=== PATIENT | female | born 1975 | race Caucasian/White ===

== ENCOUNTER 2020-10-13 12:25 | Emergency (ER) | payer MEDICAID, OTHER ==
[~2020-10-13] VITALS: Ht 154.9 cm; Wt 172.4 kg
[2020-10-13] MEDS ORDERED: SODIUM CHLORIDE 0.9% 500 ML IV ONE (12:45)
[2020-10-13 15:48] LABS: Hematocrit 38.5 % (36.0-46.0); Hemoglobin 12.9 g/dL (12.2-16.2); Mean Corpuscular Hgb Conc. 33.6 g/dL (32.0-36.0); Mean Corpuscular Volume 86.1 fL (80.0-100.0); Platelet Count (auto) 161 10^3/uL (140-450); Red Blood Cells 4.47 10^6/uL (4.0-5.20); Red Cell Distribution Width 14.1 % (11.8-14.3); White Blood Cell 5.1 10^3/uL (4.4-10.8)
[2020-10-13 15:50] LABS: Basophils % (manual) 0 (0.0-2.0); Blast Cells 0; Eosinophils % (manual) 0 (0-7); Metamyelocytes % 0; Myelocytes % 0; Promyelocytes % 0; Reactive Lymphocytes 0
[2020-10-13 16:29] LABS: Albumin 3.5 g/dL (3.4-5.0); BUN/Creatinine Ratio 11.8; Bilirubin, Total 0.3 mg/dL (0.2-1.0); Calcium 8.4 mg/dL (8.5-10.1); Potassium 5.2 mmol/L (3.5-5.1); Total Protein 7.1 g/dL (6.4-8.2)
[2020-10-13 17:15] LABS: Band Neutrophils % (manual) 3; Lymphocytes % (manual) 20 (10.0-50.0); Monocytes % (manual) 15 (0-12)
[2020-10-13 19:41] VITALS: BP 122/65
[2020-10-13 20:45] LABS: Urine Bacteria FEW /hpf (None Seen); Urine Blood Negative /uL (Negative); Urine Mucus FEW (None Seen); Urine Specific Gravity 1.009 (1.001-1.035); Urine WBC 31 /hpf (0 - 5)
== END 2020-10-13 21:00 | disposition home or self-care (01) ==
LOC: ER 12:25
DX: N39.0 Urinary tract infection, site not specified (principal); J45.909 Unspecified asthma, uncomplicated; E11.9 Type 2 diabetes mellitus without complications; E78.5 Hyperlipidemia, unspecified; I10 Essential (primary) hypertension; Z98.51 Tubal ligation status
CPT/HCPCS: 36415; 74176; 80053; 81001; 85007; 85027; 96360; 96361; 99284; J7040

== ENCOUNTER 2022-12-12 09:55 | Inpatient (IN) | payer MEDICAID ==
[~2022-12-12] VITALS: Ht 154.9 cm; Wt 181.0 kg
[2022-12-12 10:47] LABS: Eosinophils # (auto) 0.1 10 ^3/uL (0-0.8)
[2022-12-12 10:49] LABS: Basophils # (auto) 0.1 10 ^3/uL (0-0.2); Basophils % (auto) 0.3 % (0.0-2.0); Eosinophils % (auto) 0.5 % (0.0-7.0); Hematocrit 29.1 % (36.0-46.0); Lymphocytes # (auto) 1.4 10 ^3/uL (0.4-5.4); Lymphocytes % (auto) 8.6 % (10.0-50.0); Mean Corpuscular Hemoglobin 26.9 pg (28.0-32.0); Mean Corpuscular Hgb Conc. 31.1 g/dL (32.0-36.0); Mean Corpuscular Volume 86.6 fL (80.0-100.0); Monocytes # (auto) 1.6 10 ^3/uL (0-1.3); Monocytes % (auto) 9.4 % (0.0-12.0); Neutrophils # (auto) 13.6 10 ^3/uL (1.6-8.6); Neutrophils % (auto) 81.2 % (37.0-80.0); Nucleated Red Blood Cells % 0.1 %; Red Blood Cells 3.36 10^6/uL (4.0-5.20); Red Cell Distribution Width 14.5 % (11.8-14.3); White Blood Cell 16.8 10^3/uL (4.4-10.8)
[2022-12-12 10:52] LABS: Albumin 2.8 g/dL (3.4-5.0); Calcium 8.6 mg/dL (8.5-10.1)
[2022-12-12 10:56] LABS: Bilirubin, Total 0.3 mg/dL (0.2-1.0); Total Protein 6.4 g/dL (6.4-8.2)
[2022-12-12] MEDS ORDERED: ACETAMINOPHEN 325 MG TAB PO PRN (11:00)
[2022-12-12] MEDS ORDERED: AZITHROMYCIN 500MG/ 250ML 250 ML IV ONE (11:00)
[2022-12-12] MEDS ORDERED: SODIUM CHLORIDE 0.9% 1,000 ML IV ONE ×2 (11:00)
[2022-12-12] MEDS ORDERED: cefTRIAXone 1GM/50ML D5W 50 ML IV ONE (11:00)
[2022-12-12] MEDS ORDERED: ENOXAPARIN SOD 150 MG/1 ML SYRINGE SC ONE (11:30)
[2022-12-12 11:34] LABS: Urine Bacteria FEW /hpf (None Seen); Urine Blood 2+ /uL (Negative); Urine Specific Gravity 1.015 (1.001-1.035); Urine WBC 243 /hpf (0 - 5)
[2022-12-12] MEDS ORDERED: FUROSEMIDE 20 MG/2 ML VIAL IV ONE (13:00)
[2022-12-12] MEDS ORDERED: PANTOPRAZOLE 40 MG/10 ML VIAL INJ IV ONE (13:15)
[2022-12-12] MEDS ORDERED: VANCOMYCIN PER PHARMACY 0 MG IV SCH (13:15)
[2022-12-12] MEDS: SODIUM CHLORIDE 0.9% 1,000 ML IV SCH (13:15)
[2022-12-12] MEDS ORDERED: ALBUTEROL SULF 2.5 MG/0.5ML(0.5%) NEB SOLN NEB PRN (13:15)
[2022-12-12] MEDS ORDERED: MORPHINE SULFATE INJ 2 MG/ml SYRG IV PRN (13:15)
[2022-12-12] MEDS ORDERED: NITROGLYCERIN 0.4 MG SL TAB SL PRN (13:15)
[2022-12-12 13:46] LABS: Cholesterol 92 mg/dL (< 200); Triglycerides 103 mg/dL (< 150)
[2022-12-12 13:48] LABS: HDL Cholesterol 37 mg/dL (40-59); LDL Cholesterol 46 mg/dL (< 100)
[2022-12-12] MEDS ORDERED: LURA80TA PO (13:55)
[2022-12-12] MEDS ORDERED: ALBU108A5 INH (13:55)
[2022-12-12] MEDS ORDERED: ROSU1TAB15 PO (13:55)
[2022-12-12] MEDS ORDERED: ROPI2TAB6 (13:55)
[2022-12-12] MEDS ORDERED: HYDR4TAB90 PO (13:55)
[2022-12-12] MEDS ORDERED: BUSP30TA21 PO (13:55)
[2022-12-12] MEDS ORDERED: PREG200C59 PO (13:55)
[2022-12-12] MEDS ORDERED: METF-372 PO (13:55)
[2022-12-12] MEDS ORDERED: BACL20TA (13:55)
[2022-12-12] MEDS ORDERED: MELO1TAB56 PO (13:55)
[2022-12-12] MEDS ORDERED: MONT-8 PO (13:55)
[2022-12-12] MEDS ORDERED: ASPI-325 PO (13:55)
[2022-12-12] MEDS ORDERED: GLIP10TA16 (13:55)
[2022-12-12] MEDS ORDERED: METH-867 PO (13:55)
[2022-12-12] MEDS ORDERED: MORP30TA5 PO (13:55)
[2022-12-12] MEDS ORDERED: IPRIH INH (13:55)
[2022-12-12] MEDS ORDERED: CETI-120 PO (13:55)
[2022-12-12] MEDS ORDERED: OXYB5TAB61 PO (13:55)
[2022-12-12] MEDS ORDERED: UBRO100T2 PO (13:55)
[2022-12-12] MEDS ORDERED: ROPI2TAB47 PO (13:55)
[2022-12-12] MEDS ORDERED: MEDR10TA9 PO (13:55)
[2022-12-12] MEDS ORDERED: HYDR4TAB2 PO (13:55)
[2022-12-12] MEDS ORDERED: VANCOMYCIN 1GM/250ML 250 ML IV ONE (14:00)
[2022-12-12] MEDS: PATIENTS OWN MEDICATION (Pregabalin 1 CAP) PO SCH ×2 (14:00→22:00)
[2022-12-12] MEDS: HYDROmorphone HCL 2 MG TAB PO PRN ×3 (15:28→20:11)
[2022-12-12] MEDS ORDERED: ALBUTEROL SULF 2.5 MG/0.5ML(0.5%) NEB SOLN NEB SCH (18:00)
[2022-12-12] MEDS: VANCOMYCIN 1GM/250ML 250 ML IV SCH (20:11)
[2022-12-12] MEDS: MORPHINE SULF 30 mg ER tab PO PRN (21:37)
[2022-12-12] MEDS: OXYBUTYNIN CHL 5 MG TAB PO SCH (22:00)
[2022-12-12] MEDS: ENOXAPARIN SOD 40 MG/0.4 ML SYRINGE SC SCH (22:24)
[2022-12-12] MEDS: busPIRone HCL 10 MG TAB PO SCH (22:24)
[2022-12-12] MEDS: CEFEPIME 2 GM in SODIUM CHL 0.9% 50 ML IV SCH (22:24)
[2022-12-13] VITALS (7 sets, daily range): BP systolic 116–158; BP diastolic 49–83
[2022-12-13] MEDS: HYDROmorphone HCL 2 MG TAB PO PRN ×3 (03:10→15:19)
[2022-12-13] MEDS: VANCOMYCIN 1GM/250ML 250 ML IV SCH ×4 (03:10→20:35)
[2022-12-13] MEDS: PATIENTS OWN MEDICATION (Pregabalin 1 CAP) PO SCH (05:25)
[2022-12-13 07:50] LABS: Basophils # (auto) 0.1 10 ^3/uL (0-0.2); Basophils % (auto) 0.4 % (0.0-2.0); Eosinophils # (auto) 0.1 10 ^3/uL (0-0.8); Eosinophils % (auto) 0.6 % (0.0-7.0); Hematocrit 31.8 % (36.0-46.0); Hemoglobin 9.6 g/dL (12.2-16.2); Lymphocytes # (auto) 2.4 10 ^3/uL (0.4-5.4); Lymphocytes % (auto) 11.7 % (10.0-50.0); Mean Corpuscular Hemoglobin 26.8 pg (28.0-32.0); Mean Corpuscular Hgb Conc. 30.4 g/dL (32.0-36.0); Mean Corpuscular Volume 88.4 fL (80.0-100.0); Monocytes # (auto) 3.2 10 ^3/uL (0-1.3); Monocytes % (auto) 15.4 % (0.0-12.0); Neutrophils # (auto) 14.9 10 ^3/uL (1.6-8.6); Neutrophils % (auto) 71.9 % (37.0-80.0); Nucleated Red Blood Cells % 0.2 %; Red Blood Cells 3.59 10^6/uL (4.0-5.20); Red Cell Distribution Width 14.3 % (11.8-14.3); White Blood Cell 20.7 10^3/uL (4.4-10.8)
[2022-12-13] MEDS: ACETAMINOPHEN 325 MG TAB PO PRN ×2 (09:21→22:01)
[2022-12-13] MEDS: MONTELUKAST SODIUM 10 MG TAB PO SCH (09:23)
[2022-12-13] MEDS: ENOXAPARIN SOD 40 MG/0.4 ML SYRINGE SC SCH ×2 (09:23→22:02)
[2022-12-13] MEDS: busPIRone HCL 10 MG TAB PO SCH ×2 (09:23→22:01)
[2022-12-13] MEDS: OXYBUTYNIN CHL 5 MG TAB PO SCH ×2 (09:23→22:01)
[2022-12-13] MEDS: PANTOPRAZOLE 40 MG/10 ML VIAL INJ IV SCH (09:24)
[2022-12-13] MEDS: ASPirin-EC 81 mg tab PO SCH (09:24)
[2022-12-13 09:28] LABS: Albumin 2.6 g/dL (3.4-5.0); Calcium 8.8 mg/dL (8.5-10.1); Potassium 4.8 mmol/L (3.5-5.1)
[2022-12-13 09:31] LABS: BUN/Creatinine Ratio 12.6; Bilirubin, Total 0.4 mg/dL (0.2-1.0); Total Protein 7.5 g/dL (6.4-8.2)
[2022-12-13] MEDS ORDERED: ENOXAPARIN SOD 60 MG/0.6 ML SYRINGE SC SCH (10:00)
[2022-12-13] MEDS ORDERED: cefTRIAXone 1GM/50ML D5W 50 ML IV SCH (10:00)
[2022-12-13] MEDS: medroxyPROGESTERone ACETATE 5 MG TAB PO SCH (10:49)
[2022-12-13] MEDS: CEFEPIME 2 GM in SODIUM CHL 0.9% 50 ML IV SCH ×2 (11:20→22:02)
[2022-12-13] MEDS: Pregabalin 200 MG CAPSULE PO SCH ×2 (14:16→22:00)
[2022-12-13] MEDS: SODIUM CHLORIDE 0.9% 1,000 ML IV SCH (15:25)
[2022-12-13] MEDS: MORPHINE SULF 30 mg ER tab PO PRN ×2 (20:36→23:48)
[2022-12-14] MEDS: VANCOMYCIN 1GM/250ML 250 ML IV SCH ×5 (02:02→20:53)
[2022-12-14 04:46] VITALS: BP 129/72
[2022-12-14] MEDS: Pregabalin 200 MG CAPSULE PO SCH ×3 (05:16→21:30)
[2022-12-14] MEDS ORDERED: ALBUTEROL SULF 2.5 MG/0.5ML(0.5%) NEB SOLN NEB SCH (06:00)
[2022-12-14] MEDS ORDERED: IPRATROPIUM BROM 0.5 MG/2.5ML INH SOL NEB SCH ×2 (06:00)
[2022-12-14] MEDS ORDERED: ALBUTEROL SULF 2.5 MG/0.5ML(0.5%) NEB SOLN NEB PRN (08:45)
[2022-12-14] MEDS ORDERED: IPRATROPIUM BROM 0.5 MG/2.5ML INH SOL NEB PRN (08:45)
[2022-12-14] MEDS: PANTOPRAZOLE 40 MG/10 ML VIAL INJ IV SCH (08:58)
[2022-12-14] MEDS: medroxyPROGESTERone ACETATE 5 MG TAB PO SCH (08:59)
[2022-12-14] MEDS: busPIRone HCL 10 MG TAB PO SCH ×2 (08:59→21:30)
[2022-12-14 09:00] VITALS: BP 115/74
[2022-12-14] MEDS: OXYBUTYNIN CHL 5 MG TAB PO SCH ×2 (09:01→21:30)
[2022-12-14] MEDS: MONTELUKAST SODIUM 10 MG TAB PO SCH (09:01)
[2022-12-14] MEDS: SODIUM CHLORIDE 0.9% 1,000 ML IV SCH ×2 (09:02→18:30)
[2022-12-14] MEDS: ENOXAPARIN SOD 40 MG/0.4 ML SYRINGE SC SCH ×2 (09:02→21:31)
[2022-12-14 09:05] LABS: Basophils # (auto) 0.1 10 ^3/uL (0-0.2); Basophils % (auto) 0.5 % (0.0-2.0); Eosinophils # (auto) 0.4 10 ^3/uL (0-0.8); Eosinophils % (auto) 1.9 % (0.0-7.0); Hematocrit 33.5 % (36.0-46.0); Hemoglobin 10.8 g/dL (12.2-16.2); Lymphocytes # (auto) 2.2 10 ^3/uL (0.4-5.4); Lymphocytes % (auto) 11.4 % (10.0-50.0); Mean Corpuscular Hemoglobin 27.1 pg (28.0-32.0); Mean Corpuscular Hgb Conc. 32.1 g/dL (32.0-36.0); Mean Corpuscular Volume 84.6 fL (80.0-100.0); Monocytes # (auto) 2.1 10 ^3/uL (0-1.3); Monocytes % (auto) 11.2 % (0.0-12.0); Neutrophils # (auto) 14.2 10 ^3/uL (1.6-8.6); Nucleated Red Blood Cells % 0.4 %; Red Blood Cells 3.96 10^6/uL (4.0-5.20); Red Cell Distribution Width 14.2 % (11.8-14.3); White Blood Cell 18.9 10^3/uL (4.4-10.8)
[2022-12-14] MEDS: ASPirin-EC 81 mg tab PO SCH (09:08)
[2022-12-14 09:29] LABS: Albumin 2.4 g/dL (3.4-5.0); BUN/Creatinine Ratio 13.2; Calcium 8.9 mg/dL (8.5-10.1); Potassium 4.5 mmol/L (3.5-5.1)
[2022-12-14 09:30] LABS: Bilirubin, Total 0.5 mg/dL (0.2-1.0); Total Protein 7.3 g/dL (6.4-8.2)
[2022-12-14] MEDS: CEFEPIME 2 GM in SODIUM CHL 0.9% 50 ML IV SCH ×2 (10:38→21:29)
[2022-12-14] MEDS: MORPHINE SULF 30 mg ER tab PO PRN (10:40)
[2022-12-14] MEDS ORDERED: HYDROmorphone HCL 2 MG TAB PO PRN (11:30)
[2022-12-14 13:00] VITALS: BP 115/49
[2022-12-14] MEDS: LATUDA 80 MG PO SCH (13:36)
[2022-12-14] MEDS ORDERED: IOHEXOL 350 MG/ML 100ML IJ ONE (16:21)
[2022-12-14 17:00] VITALS: BP 124/72
[2022-12-14] MEDS ORDERED: hydrOXYzine HCL 10 MG TAB PO PRN (17:30)
[2022-12-14 20:00] VITALS: BP 126/74
[2022-12-14] MEDS: NYSTATIN TOPICAL POWDER 15GM TOP SCH (21:31)
[2022-12-14 23:28] VITALS: BP 129/66
[2022-12-15 04:52] VITALS: BP 161/69
[2022-12-15 06:13] LABS: Basophils # (auto) 0.1 10 ^3/uL (0-0.2); Eosinophils # (auto) 0.2 10 ^3/uL (0-0.8); Monocytes # (auto) 1.7 10 ^3/uL (0-1.3)
[2022-12-15 06:15] LABS: Basophils % (auto) 0.4 % (0.0-2.0); Eosinophils % (auto) 1.1 % (0.0-7.0); Hematocrit 24.6 % (36.0-46.0); Lymphocytes # (auto) 1.7 10 ^3/uL (0.4-5.4); Lymphocytes % (auto) 11.8 % (10.0-50.0); Mean Corpuscular Hemoglobin 27.2 pg (28.0-32.0); Mean Corpuscular Hgb Conc. 32.4 g/dL (32.0-36.0); Monocytes % (auto) 11.6 % (0.0-12.0); Neutrophils # (auto) 11.1 10 ^3/uL (1.6-8.6); Neutrophils % (auto) 75.1 % (37.0-80.0); Nucleated Red Blood Cells % 0.5 %; Red Blood Cells 2.93 10^6/uL (4.0-5.20); White Blood Cell 14.8 10^3/uL (4.4-10.8)
[2022-12-15 06:26] LABS: Potassium 3.8 mmol/L (3.5-5.1)
[2022-12-15 06:34] LABS: BUN/Creatinine Ratio 15.9
[2022-12-15] MEDS: VANCOMYCIN 1GM/250ML 250 ML IV SCH ×2 (06:50→08:54)
[2022-12-15] MEDS: Pregabalin 200 MG CAPSULE PO SCH ×2 (06:50→14:38)
[2022-12-15] MEDS: SODIUM CHLORIDE 0.9% 1,000 ML IV SCH (08:51)
[2022-12-15] MEDS: OXYBUTYNIN CHL 5 MG TAB PO SCH (08:54)
[2022-12-15] MEDS: PANTOPRAZOLE 40 MG/10 ML VIAL INJ IV SCH (08:54)
[2022-12-15] MEDS: MONTELUKAST SODIUM 10 MG TAB PO SCH (08:54)
[2022-12-15] MEDS: busPIRone HCL 10 MG TAB PO SCH (08:54)
[2022-12-15] MEDS: ENOXAPARIN SOD 40 MG/0.4 ML SYRINGE SC SCH (08:55)
[2022-12-15 09:00] VITALS: BP 147/74
[2022-12-15] MEDS: NYSTATIN TOPICAL POWDER 15GM TOP SCH (09:03)
[2022-12-15] MEDS: medroxyPROGESTERone ACETATE 5 MG TAB PO SCH (09:03)
[2022-12-15] MEDS: ASPirin-EC 81 mg tab PO SCH (09:03)
[2022-12-15] MEDS ORDERED: NYS15PW TOP (10:01)
[2022-12-15] MEDS: CEFEPIME 2 GM in SODIUM CHL 0.9% 50 ML IV SCH (10:04)
[2022-12-15] MEDS ORDERED: CEFTRIAXONE SODIUM 2 GM in D5W 5% 100 ML IV ONE (12:00)
[2022-12-15] MEDS: LATUDA 80 MG PO SCH (13:08)
[2022-12-16] MEDS ORDERED: CEFTRIAXONE SODIUM 2 GM in D5W 5% 100 ML IV SCH (10:00)
== END 2022-12-15 15:39 | disposition home or self-care (01) | DRG 720 ==
LOC: EDBD 09:55 → ER 10:03 → TELE 13:17 → TELE-CENTR 23:54
PROVIDERS: ADMIT Nurse Practitioner Family; ATTEND Internal Medicine Pulmonary Disease
PROC: 05HY33Z Insertion of Infusion Device into Upper Vein, Percutaneous Approach (ICD-10-PCS; principal; 2022-12-15)
PROC: B54NZZA Ultrasonography of Left Upper Extremity Veins, Guidance (ICD-10-PCS; 2022-12-15)
DX: A41.9 Sepsis, unspecified organism (principal); J96.21 Acute and chronic respiratory failure with hypoxia; D84.9 Immunodeficiency, unspecified; I50.810 Right heart failure, unspecified; E66.2 Morbid (severe) obesity with alveolar hypoventilation; I11.0 Hypertensive heart disease with heart failure; E11.65 Type 2 diabetes mellitus with hyperglycemia; B37.31 Acute candidiasis of vulva and vagina; S82.892A Other fracture of left lower leg, initial encounter for closed fracture; G89.29 Other chronic pain; M79.3 Panniculitis, unspecified; E78.5 Hyperlipidemia, unspecified; J44.9 Chronic obstructive pulmonary disease, unspecified; N39.0 Urinary tract infection, site not specified; W06.XXXA Fall from bed, initial encounter; Z20.822 Contact with and (suspected) exposure to COVID-19; Y93.89 Activity, other specified; Y92.003 Bedroom of unspecified non-institutional (private) residence as the place of occurrence of the external cause; Z82.49 Family history of ischemic heart disease and other diseases of the circulatory system; Z86.16 Personal history of COVID-19; Z88.6 Allergy status to analgesic agent; Z99.81 Dependence on supplemental oxygen; Z88.1 Allergy status to other antibiotic agents
CPT/HCPCS: 36415; 51702; 71045; 71260; 73600; 74177; 80048; 80053; 80061; 80202; 81001; 83036; 83605; 84443; 84484; 85025; 85379; 87040; 87086; 87426; 87804; 93005; 93306; 94640; 96365; 96366; 96368; 96372; C9113; G0378; J0696; J7060

== ENCOUNTER 2022-12-18 05:37 | Emergency (ER) | payer MEDICAID ==
[~2022-12-18] VITALS: Ht 167.6 cm; Wt 200.0 kg
[~2022-12-18 05:37] MED LIST: ALBU108A5 INH; ASPI-325 PO; BACL20TA; BUSP30TA21 PO; CETI-120 PO; GLIP10TA16; HYDR4TAB2 PO; HYDR4TAB90 PO; IPRIH INH; LURA80TA PO; MEDR10TA9 PO; MELO1TAB56 PO; METF-372 PO; METH-867 PO; MONT-8 PO; MORP30TA5 PO; NYS15PW TOP; OXYB5TAB61 PO; PREG200C59 PO; ROPI2TAB47 PO; ROPI2TAB6; ROSU1TAB15 PO; UBRO100T2 PO
[2022-12-18] MEDS ORDERED: MIDAZOLAM DRIP 50 mg/50mL 50 ML IV ONE (05:44)
[2022-12-18] MEDS ORDERED: ETOMIDATE (2MG/ML) 20ML VIAL IV ONE ×2 (05:44→06:15)
[2022-12-18] MEDS ORDERED: MIDAZOLAM HCL 10 ML IV ONE (05:45)
[2022-12-18] MEDS ORDERED: ROCURONIUM 10MG/ML 10ML VIAL IV ONE ×5 (05:45→09:30)
[2022-12-18] MEDS ORDERED: IPRATROPIUM BROM 0.5 MG/2.5ML INH SOL NEB ONE (06:00)
[2022-12-18] MEDS ORDERED: methylPREDNISolone SOD SUCC 125 MG/2 ML VL IV ONE (06:00)
[2022-12-18] MEDS ORDERED: ALBUTEROL SULF 2.5 MG/0.5ML(0.5%) NEB SOLN NEB ONE (06:00)
[2022-12-18] MEDS ORDERED: TERBUTALINE SULFATE 1 MG/ML 1ML VIAL SC ONE (06:00)
[2022-12-18] MEDS: MIDAZOLAM DRIP 50 mg/50mL 50 ML IV SCH ×2 (06:04→12:25)
[2022-12-18 06:13] LABS: Basophils # (auto) 0.1 10 ^3/uL (0-0.2); Eosinophils # (auto) 0.1 10 ^3/uL (0-0.8); Hemoglobin 9.3 g/dL (12.2-16.2)
[2022-12-18] MEDS ORDERED: MIDAZOLAM DRIP 50 mg/50mL 50 ML IV SCH (06:15)
[2022-12-18] MEDS ORDERED: MIDAZOLAM HCL 5 MG/ML-1ML VIAL IV ONE (06:15)
[2022-12-18 06:16] LABS: Basophils % (auto) 0.5 % (0.0-2.0); Eosinophils % (auto) 0.5 % (0.0-7.0); Hematocrit 30.4 % (36.0-46.0); Lymphocytes # (auto) 2.2 10 ^3/uL (0.4-5.4); Lymphocytes % (auto) 13.4 % (10.0-50.0); Mean Corpuscular Hemoglobin 26.8 pg (28.0-32.0); Mean Corpuscular Hgb Conc. 30.5 g/dL (32.0-36.0); Mean Corpuscular Volume 87.9 fL (80.0-100.0); Monocytes # (auto) 1.5 10 ^3/uL (0-1.3); Neutrophils # (auto) 12.7 10 ^3/uL (1.6-8.6); Neutrophils % (auto) 76.6 % (37.0-80.0); Nucleated Red Blood Cells % 0.6 %; Red Blood Cells 3.46 10^6/uL (4.0-5.20); Red Cell Distribution Width 14.8 % (11.8-14.3); White Blood Cell 16.5 10^3/uL (4.4-10.8)
[2022-12-18] MEDS ORDERED: MAGNESIUM SULFATE 1GM/100ML 200 ML IV ONE (06:27)
[2022-12-18 06:35] LABS: Albumin 2.6 g/dL (3.4-5.0); BUN/Creatinine Ratio 18.8; Calcium 8.7 mg/dL (8.5-10.1)
[2022-12-18 06:38] LABS: Bilirubin, Total 0.3 mg/dL (0.2-1.0); Lactic Acid w/Reflex 2.7 mmol/L (0.4-2.0); Total Protein 7.1 g/dL (6.4-8.2)
[2022-12-18 06:41] LABS: Potassium 5.8 mmol/L (3.5-5.1)
[2022-12-18] MEDS ORDERED: SODIUM CHLORIDE 0.9% 500 ML IV ONE (06:45)
[2022-12-18] MEDS: MAGNESIUM SULFATE 1GM/100ML 100 ML IV SCH ×2 (06:52→07:10)
[2022-12-18 07:20] LABS: Salicylate < 1.7 mg/dL (2.8-20.0)
[2022-12-18] MEDS ORDERED: PIPERACILLIN-TAZOB 3.375GM 100 ML IV ONE (07:30)
[2022-12-18] MEDS ORDERED: FUROSEMIDE 20 MG/2 ML VIAL IV ONE (07:30)
[2022-12-18] MEDS ORDERED: VANCOMYCIN 1GM/250ML 250 ML IV ONE (07:30)
[2022-12-18] MEDS ORDERED: InsuLIN REG 1unit/0.01ml Soln (100units/ml) IV ONE (07:30)
[2022-12-18 07:34] LABS: Acetaminophen < 2.0 ug/mL (10-30)
[2022-12-18 07:35] LABS: Urine Bacteria NONE SEEN /hpf (None Seen); Urine Blood TRACE /uL (Negative); Urine Hyaline Cast FEW /lpf (0 - 2); Urine Specific Gravity 1.023 (1.001-1.035); Urine WBC 4 /hpf (0 - 5)
[2022-12-18 07:47] VITALS: BP 120/50
[2022-12-18] MEDS ORDERED: CALCIUM GLUC 1,000mg/50ml-NS 50 ML IV ONE (09:15)
[2022-12-18 09:30] VITALS: BP 120/52
[2022-12-18] MEDS ORDERED: PROPOFOL 100 ML IV SCH (09:30)
[2022-12-18] MEDS ORDERED: NOREPINEPHRINE 8 MG/250ML KIT 250 ML IV SCH (09:30)
[2022-12-18 12:25] VITALS: BP 122/55
== END 2022-12-18 12:48 | disposition short-term general hospital (02) ==
LOC: EDSEX 05:37 → ER 05:37 → EDBD 05:37 → ER 12:48
DX: A41.9 Sepsis, unspecified organism (principal); M72.6 Necrotizing fasciitis; I10 Essential (primary) hypertension; E11.9 Type 2 diabetes mellitus without complications; E78.5 Hyperlipidemia, unspecified; J45.909 Unspecified asthma, uncomplicated; Z20.822 Contact with and (suspected) exposure to COVID-19
CPT/HCPCS: 31500; 36415; 36600; 71045; 80053; 80320; 80329; 81001; 82805; 82962; 83605; 83690; 83880; 84484; 85025; 87070; 87205; 87426; 93005; 94640; 96365; 96366; 96367; 96368; 96372; 96375; 99285; J0610; J1940; J2250; J2543; J2704; J2930; J3105; J3370; J3475; J7644; 94002

== ENCOUNTER 2024-09-17 10:08 | Inpatient (IN) | payer MEDICAID ==
[~2024-09-17] VITALS: Ht 154.9 cm; Wt 170.0 kg
[2024-09-17] VITALS (9 sets, daily range): BP systolic 148–178; BP diastolic 55–92; PULSE 79–109; RESP 16–24; TEMP 97.6–98.5; O2SAT 91–100
[~2024-09-17 10:08] MED LIST changes: -GLIP10TA16; +GLIP10TA21; -HYDR4TAB2 PO; +HYDR4TAB3 PO; -LURA80TA PO; +LURA80TA2 PO; +MELO15TA29 PO; -MELO1TAB56 PO; +OXYB5TAB14 PO; -OXYB5TAB61 PO; +PREG200C36 PO; -PREG200C59 PO; +ROPI2TAB27; -ROPI2TAB6; -ROSU1TAB15 PO; +ROSU40TA47 PO
[2024-09-17] MEDS: methylPREDNISolone SOD SUCC 125 MG/2 ML VL IV ONE (11:03)
--- NOTE | 2024-09-17 11:20 | ED.PDOC ---
History of Present Illness HPI Comments 49F presents in a wheelchair and with a family member to the ER w/ prior Hx of Asthma, 2L of Home O2 [place], Covid-2020 which may be associated to the c/c of SOB. Pt friend reports that the pt had SOB on Wednesday of 09/15/24, the pt had a SAT level of 70% and called EMS which they took the pt to [facility]. Pt reports that they only gave her 1 breathing Trx and a 1 pain shot which "only took them 4 hours". Pt reports that she kept on having a lingering cough w/ white/yellow phlegm which is also associated w/ N/. Pt is currently using 4L NC at 90%. PMHx of DM, High Lipids, HTN and SZ. SHx of , Carpal Tunnel x both hands and Tubal Ligation x1. Social Hx of qiuit tobacco use in 2011 but denies alcohol and substance use. Family Hx of CVA, HTN and DM. Denies chills, fever, /V/D, CP or other associated symptom's, modifiers, or recent injuries or sick contact at this time. Chief Complaint: Shortness of Breath Time Seen by MD: 10:40 Primary Care Provider: Chiki KRAUSE Reviewed Notes: Nurses Notes, Medications, Allergies Allergies: Coded Allergies: Ibuprofen (Verified Allergy, Unknown, 10/13/20) NSAIDs (Verified Allergy, Unknown, 12/18/22) Oxycodone (Verified Allergy, Unknown, 10/13/20) Penicillins (Verified Allergy, Unknown, 12/18/22) Uncoded Allergies: BISAGLER (Allergy, Unknown, 10/13/20) Home Meds Active Scripts Nystatin (Mycostatin) 1 Applic Ap, 1 APPLIC TOP BID for 7 Days, #120 APPLIC Prov:JUAN ALBERTO OLIVA MD 12/15/22 Reported Medications Meloxicam (Meloxicam) 15 Mg Tab, 1 TAB PO DAILY 12/12/22 Aspirin (Aspirin Low Dose) 81 Mg Tab, 1 TAB PO DAILY 12/12/22 Medroxyprogesterone Acetate (Medroxyprogesterone Aceta) 10 Mg Tab, 1 TAB PO DAILY 12/12/22 Hydromorphone Hcl (Dilaudid) 4 Mg Tab, 1 TAB PO TID PRN 12/12/22 Ropinirole Hydrochloride (Ropinirole Hydrochloride) 2 Mg Tab, PO 12/12/22 Cetirizine HCl (Cetirizine Hydrochloride) 10 Mg Tab, 1 TAB PO DAILY 12/12/22 Buspirone HCl (Buspirone Hydrochloride) 30 Mg Tab, 1 TAB PO BID 12/12/22 Lurasidone Hcl (LATUDA) 80 Mg Tab, 1 TAB PO 12/12/22 Glipizide (Glipizide Er) 10 Mg Tab 12/12/22 Baclofen (Baclofen) 20 Mg Tab, 20 12/12/22 Pregabalin (Pregabalin) 200 Mg Cap, 1 CAP PO TID 12/12/22 Methylnaltrexone [place] (Relistor) 150 Mg Tab, TAB PO 12/12/22 Ubrogepant (Ubrelvy) 100 Mg Tab, PO 12/12/22 Albuterol Sulfate (Albuterol Sulfate Hfa) 108 Mcg/Act Aer, INH 12/12/22 Ipratropium [place] Hfa (Atrovent Hfa) 17 Mcg Aer, INH 12/12/22 Morphine Sulfate (Morphine Sulfate Cr) 30 Mg Tab, 1 TAB PO BIDPRN PRN 12/12/22 Hydromorphone Hcl (Hydromorphone Hcl) 4 Mg Tab, PO 12/12/22 Oxybutynin Chloride (Oxybutynin Chloride) 5 Mg Tab, 1 TAB PO BID 12/12/22 Montelukast Sodium (MONTELUKAST SODIUM) 10 Mg Tab, 1 TAB PO DAILY 12/12/22 Ropinirole Hydrochloride (Ropinirole Hcl) 2 Mg Tab, 2 12/12/22 Rosuvastatin Calcium (Rosuvastatin Calcium) 40 Mg Tab, 1 TAB PO 12/12/22 Metformin Hydrochloride (Metformin Hcl) 1,000 Mg Tab, 1 TAB PO BID 12/12/22 Information Source: Patient, Spouse Mode of Arrival: Wheelchair Severity: Moderate Timing: Days Duration: Since onset, Days Prehospital treatment: None Past Medical History PAST MEDICAL HISTORY: Asthma, DM, High Lipids, HTN, Seizures (micropetite) Past Medical History (Other): On 2L of Home O2 [place], Covid-2020 Surgical History: , Tubal Ligation (x1) Surgical History (Other): Capal tunnel xboth hands 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 Family History Family History: Reviewed,noncontributory to illness, Family hx of DM, Family hx of HTN, Family hx of stroke Social History Smoker: Quit Greater Than 1 Year (quit is 2011) Alcohol: Denies ETOH Use Drugs: Denies Drug Use Lives In: Home Constitutional: denies: chills, diaphoresis, fatigue, fever, malaise, sweats, weakness, others EENTM: denies: blurred vision, double vision, ear bleeding, ear discharge, ear drainage, ear pain, ear ringing, eye pain, eye redness, hearing loss, mouth pain, mouth swelling, nasal discharge, nose bleeding, nose congestion, nose pain, photophobia, tearing, throat pain, throat swelling, voice changes, others Respiratory: reports: cough, shortness of breath; denies: hemoptysis, orthopnea, SOB at rest, SOB with excertion, stridor, wheezing, others Cardiovascular: denies: chest pain, dizzy spells, diaphoresis, Dyspnea on exertion, edema, irregular heart beat, left arm pain, lightheadedness, palpitations, PND, syncope, others Gastrointestinal: denies: abdomen distended, abdominal pain, blood streaked bowels, constipated, diarrhea, dysphagia, difficulty swallowing, hematemesis, melena, nausea, poor appetite, poor fluid intake, rectal bleeding, rectal pain, vomiting, others Genitourinary: denies: abnormal vagina bleeding, burning, dyspareunia, dysuria, flank pain, frequency, hematuria, incontinence, pain, , vagina discharge, urgency, others Neurological: denies: dizziness, fainting, headache, left sided numbness, left sided weakness, numbness, paresthesia, pre-existing deficit, right sided numbness, right sided weakness, seizure, speech problems, tingling, tremors, weakness, others Musculoskeletal: denies: back pain, gout, joint pain, joint swelling, muscle pain, muscle stiffness, neck pain, others Integumetry: denies: bruises, change in color, change in hair/nails, dryness, laceration, lesions, lumps, rash, wounds, others Allergic/Immunocompromised: denies: Difficulty Healing, Frequent Infections, Hives, Itching, others Hematologic/Lymphatic: denies: anemia, blood clots, easy bleeding, easy bruising, swollen glands, others Endocrine: denies: excessive hunger, excessive sweating, excessive thirst, excessive urination, flushing, intolerance to cold, intolerance to heat, unexplained weight gain, unexplained weight loss, others Psychiatric: denies: anxiety, bipolar disorder, depression, hopeless, panic disorder, schizophrenia, sleepless, suicidal, others All Other Systems: Reviewed and Negative Physical Exam General Appearance: Moderate Distress, Obese HEENT: Normal ENT Inspection, Pharynx Normal, TMs Normal Neck: Full Range of Motion, Non-Tender, Normal, Normal Inspection Respiratory: Chest Non-Tender, Decreased Breath Sounds, Lungs Clear, No Accessory Muscle Use, Respiratory Distress, Wheezing Cardiovascular: No Edema, No JVD, No Murmur, No Gallop, Normal Peripheral Pulses, Regular Rate/Rhythm Breast Exam: Deferred Gastrointestinal: No Organomegaly, Non Tender, No Pulsatile Mass, Normal Bowel Sounds, Soft Genitalia: Deferred Pelvic: Deferred Rectal: Deferred Extremities: No calf tenderness, Normal capillary refill, Normal inspection, Normal range of motion, Non-tender, No pedal edema Musculoskeletal : Apperance: Normal Neurologic: Alert, drawer in jacquard loom II-XII nml as Tested, Motor Weakness, Normal Affect, Normal Mood, No Sensory Deficits Cerebellar Function: Normal Reflexes: Normal Skin: Dry, Normal Color, Warm Lymphatic: No Adenopathy Was a procedure done? Was a procedure done?: No Differential Dx Considerations may include: Shortness of breaths, pneumonia, COPD exacerbation X-Ray, Labs, Meds, VS Vital Signs Date Time Temp Pulse Resp B/P (MAP) Pulse Ox O2 Delivery O2 Flow Rate FiO2 09/17/24 12:03 102 24 91 Nasal Cannula* 4 36 09/17/24 12:00 98.6 103 22 148/55 (86) 90 98.6 09/17/24 10:40 109 24 149/65 (93) 92 09/17/24 10:20 98.5 102 32 147/74 (98) 92 Lab Test 09/17/24 12:00 09/17/24 11:11 09/17/24 11:00 Range/Units White Blood Count 9.0 4.4-10.8 10^3/uL Red Blood Count 4.80 4.0-5.20 10^6/uL Hemoglobin 11.4 L 12.2-16.2 g/dL Hematocrit 37.0 36.0-46.0 % Mean Corpuscular Volume 77.2 L 80.0-100.0 fL Mean Corpuscular Hemoglobin 23.8 L 28.0-32.0 pg Mean Corpuscular Hemoglobin Concent 30.8 L 32.0-36.0 g/dL Red Cell Distribution Width 18.3 H 11.8-14.3 % Platelet Count 212 140-450 10^3/uL Mean Platelet Volume 9.4 6.9-10.8 fL Neutrophils (%) (Auto) 55.9 37.0-80.0 % Lymphocytes (%) (Auto) 22.3 10.0-50.0 % Monocytes (%) (Auto) 14.2 H 0.0-12.0 % Eosinophils (%) (Auto) 2.7 0.0-7.0 % Basophils (%) (Auto) 4.9 H 0.0-2.0 % Neutrophils # (Auto) 5.0 1.6-8.6 10 ^3/uL Lymphocytes # (Auto) 2.0 0.4-5.4 10 ^3/uL Monocytes # (Auto) 1.3 0-1.3 10 ^3/uL Eosinophils # (Auto) 0.2 0-0.8 10 ^3/uL Basophils # (Auto) 0.4 H 0-0.2 10 ^3/uL Nucleated Red Blood Cells 0.1 % Hemoglobin A1c 11.5 H <5.7 % A1C B-Type Natriuretic Peptide 51.80 0-100 pg/mL Blood Gas Specimen Type Arterial Blood Gas Sample Site Right radial Blood Gas Patient Temperature 37.0 Arterial Blood Date Drawn [id number] Arterial Blood pH 7.331 L 7.350-7.450 Arterial Blood Partial Pressure CO2 65.0 *H 32.0-45.0 mmHg Arterial Blood Partial Pressure O2 78.4 L 83.0-108.0 mmHg Arterial Blood HCO3 33.6 H 21.0-28.0 mmol/L Arterial Blood Oxygen Saturation 94.1 94.0-98.0 % Arterial Blood Base Excess 5.9 H -2.0-3.0 mmol/L Arterial Blood Oxyhemoglobin 93.1 L 94.0-98.0 % Arterial Blood Carboxyhemoglobin 0.7 0.5-1.5 % Arterial Blood Methemoglobin 0.4 0.0-1.5 % Florentino Test Yes Blood Gas Total Hemoglobin 12.00 12.0-16.0 g/dL Blood Gas Liter Flow 4.00 Blood Gas Modality Nasal cannula FiO2 % 36.0 Blood Gas Critical Value Read Back Yes Blood Gas Notified Whom nathan Fam md Blood Gas Notified Time [id number] Blood Gas Notified By Spout Positioner danielle aguirre Urine Color Pending Urine Clarity Pending Urine pH Pending Urine Specific [place] Pending Urine Protein Pending Urine Ketones Pending Urine Blood Pending Urine Nitrite Pending Urine Bilirubin Pending Urine Urobilinogen Pending Urine Leukocyte Esterase Pending Urine RBC Pending Urine WBC Pending Urine Squamous Epithelial Cells Pending Urine Bacteria Pending Urine Glucose Pending Lactic Acid Level 2.2 *H 0.4-2.0 mmol/L Troponin I High Sensitivity 5 </=34 ng/L Influenza Type A Antigen Negative Negative Influenza Type B Antigen Negative Negative SARS-CoV-2 Antigen (Rapid) Negative NEGATIVE Current Medications Medications (Trade) Dose Ordered Sig/Prashanth Route Start Time Stop Time Status Last Admin Methylprednisolone Sodium Succinate (Solu Medrol) 125 mg ONCE ONCE IV 09/17/24 10:45 09/17/24 10:47 DC 09/17/24 11:03 IV Hep-Lock was established The patient was given Solu-Medrol 125 mg IV push The patient had an ABG done which shows a pH of 7.33/pCO2 65 and a PO2 of 78 The CBC and chemistry panel are within normal limits The BNP is within normal limits The patient's influenza a is negative The patient's influenza B is negative The COVID test is negative At this time, the patient was being admitted to the hospitalist. We have discussed the findings with the patient's family and they are in agreement with the management We have reviewed all labs and images which contribute to the patient's diagnosis as well as critical Care The chest x-ray shows: IMPRESSION: Cardiomegaly, prominence of the pulmonary vasculature and interstitial opacities, findings may be seen with pulmonary vascular congestion / interstitial pulmonary edema in the appropriate clinical setting. There is a concern for possible CHF and so the hospitalist we will be considering giving the patient Lasix The lactic acid level is also elevated at 2.2 Images Reviewed?: Images reviewed and evaluated by me Time of 1ST Reevaluation: 10:10 Reevaluation 1ST: Unchanged Patient Education/Counseling: Diagnosis, Treatment, Prognosis Family Education/Counseling: Diagnosis, Treatment, Prognosis Departure 1 Departure Time of Disposition: 14:51 Impression: Primary Impression: Acute respiratory failure Qualified Codes: J96.02 - Acute respiratory failure with hypercapnia Additional Impression: COPD exacerbation Disposition: 09 ADMITTED INPATIENT Admit to: Tele Condition: Fair Critical Care Note Critical Care Time?: Yes (45 min-critical care time only) Stability Stability form required: Yes Unstable for transfer: Telemetry monitoring (Telemetry monitoring required), ED Physician Assesment (Clinical assesment) Heart Score Heart Score: Heart Score Response (Comments) Value History N/A 0 EKG N/A 0 Age N/A 0 Risk Factors N/A 0 Troponin N/A 0 Total 0 I personally scribed for NADEEN FAM MD ([email or web address]) on 09/17/24 at 11:20. Electronically submitted by Miguel Angel Kraft ([email or web address]). NADEEN FAM MD Sep 17, 2024 11:20
[2024-09-17 11:30] LABS: Base Excess 5.9 mmol/L (-2.0-3.0)
[2024-09-17 11:38] LABS: Lactic Acid w/Reflex 2.2 mmol/L (0.4-2.0)
--- NOTE | 2024-09-17 12:01 | DVH ---
CLINICAL INFORMATION: 49 years old, Female; shortness of breath. TECHNIQUE: Single AP portable chest radiograph was obtained. COMPARISON: XY CHEST PORTABLE on DOS: 12/18/22, XY CHEST PORTABLE on DOS: 12/12/22 FINDINGS: Lungs: Low lung volumes. Bilateral interstitial opacities and ill-defined airspace opacities. Cardiac: Mild cardiomegaly. Pulmonary vasculature: Prominence of the pulmonary vasculature. Mediastinum/ajit: Unremarkable. Bones: No acute osseous abnormality identified. Other: No other significant findings. IMPRESSION: Cardiomegaly, prominence of the pulmonary vasculature and interstitial opacities, findings may be see n with pulmonary vascular congestion / interstitial pulmonary edema in the appropriate clinical setti ng.
--- NOTE | 2024-09-17 12:09 | DVHHP2 ---
History of Present Illness Reason for Visit: SOB History of Present Illness Trina Peguero is a 49-year-old female with past medical history of hypertension, hyperlipidemia, diabetes, asthma, seizures, , tubal ligation, and bilateral carpal tunnel syndrome who presents to the ED today with shortness of breath, nausea, productive light yellow sputum. Patient reports that shortness of breath, nausea, and productive sputum that started on Wednesday. She reports going to [facility] on Wednesday received 1 breathing treatment and a pain shot for her back pain. On the same day Wednesday patient went to her doctor and was advised to get a 2nd opinion. Patient states that she came in today because she was upset the last several days and wanted an evaluation. Patient reports that she stopped taking her Keppra because it caused her double vision and constipation, she reports she has a neurology appointment in November of 2024. Patient also reports that she does occasional drinking, marijuana use, and quit smoking cigarettes. Patient also reports that she uses 2 L of oxygen during the day and 3 L of oxygen at night along with her CPAP. Patient states that when she does walk it is minimal and with a front wheel walker however she typically uses her electric wheelchair. Patient denies headache, chest pain, fever, chills, abdominal pain, vomiting, diarrhea, lightheadedness, and dizziness. 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 Endocrine: Diabetes Past Medical History Bilateral carpal tunnel syndrome Past Surgical History: , Tubal Ligation Family History: CVA Family History Dad and aunt - Sz Smoke: Quit ALCOHOL: occassional Drugs: Marijuana Lives: with Family Domestic Violence: Neg Review of Systems Constitutional: No: Fever, Chills, Sweats, Weakness, Malaise, Other Eyes: No: Pain, Vision change, Conjunctivae inflammation, Eyelid inflammation, Other, Redness ENT: No: Ear pain, Ear discharge, Nose pain, Nose discharge, Nose congestion, Mouth pain, Mouth swelling, Throat pain, Throat swelling, Other Respiratory: Cough, Shortness of breath, SOB with excertion, Sputum; No: Dry, Wheezing, Hemoptysis, Pleuritic Pain, Wheezing, Other Cardiovascular: No: Chest Pain, Palpitations, Orthopnea, Paroxysmal Noc. Dyspnea, Edema, Lt Headedness, Other Gastrointestinal: Nausea; No: Vomiting, Abdominal Pain, Diarrhea, Constipation, Melena, Hematochezia, Other Genitourinary: No Dysuria, No Frequency, No Incontinence, No Hematuria, No Retention, No Other Musculoskeletal: back pain; No: other, neck pain, shoulder pain, arm pain, hand pain, leg pain, foot pain Skin: No: Rash, Lesions, Jaundice, Bruising, Other Neurological: No: Weakness, Numbness, Incoordination, Change in speech, Confusion, Seizures, Other Allergies: Coded Allergies: Ibuprofen (Verified Allergy, Unknown, 10/13/20) NSAIDs (Verified Allergy, Unknown, 12/18/22) Oxycodone (Verified Allergy, Unknown, 10/13/20) Penicillins (Verified Allergy, Unknown, 12/18/22) Uncoded Allergies: BISAGLER (Allergy, Unknown, 10/13/20) Exam Vital Signs Vital Signs Date Time Temp Pulse Resp B/P (MAP) Pulse Ox O2 Delivery O2 Flow Rate FiO2 09/17/24 10:40 109 24 149/65 (93) 92 09/17/24 10:20 98.5 General Appearance: Alert, Oriented X3, Cooperative, No acute distress HEENT: Atraumatic, PERRLA, EOMI, Mucous membr. moist/pink Respiratory: Normal air movement Cardiovascular: Normal S1, Normal S2, No murmurs Abdominal: Normal bowel sounds, Soft, No tenderness, No hepatospenomegaly, No masses Extremities: No clubbing, No cyanosis, Normal pulses, No tenderness/swelling Skin: No rashes, No breakdown, No significant lesion Neuro: Normal speech, Normal tone, Sensation intact, Other (uses FWW and WC) Psych/Mental Status: Mental status NL, Mood NL Labs/Xrays Labs Test 09/17/24 11:11 09/17/24 11:00 Range/Units Blood Gas Specimen Type Arterial Blood Gas Sample Site Right radial Blood Gas Patient Temperature 37.0 Arterial Blood Date Drawn [id number] Arterial Blood pH 7.331 L 7.350-7.450 Arterial Blood Partial Pressure CO2 65.0 *H 32.0-45.0 mmHg Arterial Blood Partial Pressure O2 78.4 L 83.0-108.0 mmHg Arterial Blood HCO3 33.6 H 21.0-28.0 mmol/L Arterial Blood Oxygen Saturation 94.1 94.0-98.0 % Arterial Blood Base Excess 5.9 H -2.0-3.0 mmol/L Arterial Blood Oxyhemoglobin 93.1 L 94.0-98.0 % Arterial Blood Carboxyhemoglobin 0.7 0.5-1.5 % Arterial Blood Methemoglobin 0.4 0.0-1.5 % Florentino Test Yes Blood Gas Total Hemoglobin 12.00 12.0-16.0 g/dL Blood Gas Liter Flow 4.00 Blood Gas Modality Nasal cannula FiO2 % 36.0 Blood Gas Critical Value Read Back Yes Blood Gas Notified Whom nathan Fam md Blood Gas Notified Time [id number] Blood Gas Notified By Varnish Thinner danielle aguirre Lactic Acid Level 2.2 *H 0.4-2.0 mmol/L Troponin I High Sensitivity 5 </=34 ng/L CLINICAL INFORMATION: 49 years old, Female; shortness of breath. TECHNIQUE: Single AP portable chest radiograph was obtained. COMPARISON: XY CHEST PORTABLE on DOS: 12/18/22, XY CHEST PORTABLE on DOS: 12/12/22 FINDINGS: Lungs: Low lung volumes. Bilateral interstitial opacities and ill-defined airspace opacities. Cardiac: Mild cardiomegaly. Pulmonary vasculature: Prominence of the pulmonary vasculature. Mediastinum/ajit: Unremarkable. Bones: No acute osseous abnormality identified. Other: No other significant findings. IMPRESSION: Cardiomegaly, prominence of the pulmonary vasculature and interstitial opacities, findings may be seen with pulmonary vascular congestion / interstitial pulmonary edema in the appropriate clinical setting. Assessment/Plan Assessment/Plan Assessment/Plan: Acute on chronic respiratory failure likely 2nd to PNA Acute on chronic hypercapnic respiratory failure Sepsis Lactic acidosis UTI cxr ua O2 dependent 2LNC am and 3LNC noc cpap at night d-dimer cta if positive ekg IV steroids IV abx IVf flu negative covid negative lactic ekg Asthma resp txs o2 prn Morbidly obese Counseled on lifestyle modifications, diet, and exercise DM hgbA1c ISS and accuchecks HTN continue home meds HLD continue home meds Seizure outpt f/u ex-tobacco use Marijuana use Counseled patient on substance cessation FEN/PPX diet ivf lovenox protonix for use with steroids Discussed plan of care with patient and nurse Home medications reconciled Admit to telemetry for continuous monitoring Plan discussed with: Patient Date of Service: Sep 17, 2024 Billing Provider: DORIAN DUVALL Common Visit Codes: 60740-VCOEBSE INP/OBS CARE (MOD) DORIAN DUVALL RUG SETTER VELVET Sep 17, 2024 12:09
[2024-09-17 12:27] LABS: Rapid Influenza A Negative (Negative); Rapid Influenza B Negative (Negative)
[2024-09-17 12:28] LABS: COVID19 ANTIGEN SOFIA FIA NEGATIVE (NEGATIVE)
[2024-09-17] MEDS ORDERED: DOCUSATE SOD 100 MG CAP PO PRN (12:30)
[2024-09-17] MEDS ORDERED: DEXTROSE (50%) 50ML SYRG IV PRN ×2 (12:30)
[2024-09-17 12:54] LABS: Basophils # (auto) 0.4 10 ^3/uL (0-0.2); Basophils % (auto) 4.9 % (0.0-2.0); Eosinophils # (auto) 0.2 10 ^3/uL (0-0.8); Eosinophils % (auto) 2.7 % (0.0-7.0); Hemoglobin 11.4 g/dL (12.2-16.2); Lymphocytes % (auto) 22.3 % (10.0-50.0); Mean Corpuscular Hemoglobin 23.8 pg (28.0-32.0); Mean Corpuscular Hgb Conc. 30.8 g/dL (32.0-36.0); Mean Corpuscular Volume 77.2 fL (80.0-100.0); Monocytes # (auto) 1.3 10 ^3/uL (0-1.3); Monocytes % (auto) 14.2 % (0.0-12.0); Neutrophils % (auto) 55.9 % (37.0-80.0); Nucleated Red Blood Cells % 0.1 %; Platelet Count (auto) 212 10^3/uL (140-450); Red Cell Distribution Width 18.3 % (11.8-14.3)
[2024-09-17] MEDS: AZITHROMYCIN 500MG/ 250ML 250 ML IV ONE (13:46)
[2024-09-17] MEDS: SODIUM CHLORIDE 0.9% 1,000 ML IV SCH (13:46)
[2024-09-17 14:08] LABS: Urine Bacteria None Seen /hpf (None Seen)
[2024-09-17] MEDS: ONDANSETRON HCL 4 MG/2 ML VIAL IV PRN (14:27)
[2024-09-17] MEDS: MORPHINE SULFATE INJ 2 MG/ml SYRG IV PRN (14:28)
[2024-09-17 14:50] LABS: Urine Blood Negative /uL (Negative); Urine Clarity Turbid (Clear); Urine Color Light-Yellow (Yellow); Urine Protein, UAD Negative (Negative); Urine Urobilinogen Normal (Negative); Urine WBC 130 /hpf (0 - 5); Urine pH 5.5 (5.0-9.0)
[2024-09-17] MEDS ORDERED: ACCU-CHEK COMFORT CURVE STRIP VI SCH (16:00)
[2024-09-17] MEDS: ACETAMINOPHEN 325 MG TAB PO PRN (17:15)
[2024-09-17] MEDS: hydrALAZINE HCL 20 MG/ML VL IV PRN (18:12)
[2024-09-17] MEDS: ACCU-CHEK COMFORT CURVE STRIP VI SCH (18:13)
[2024-09-17] MEDS: InsuLIN REG 1unit/0.01ml Soln (100units/ml) SC SCH (18:21)
[2024-09-17] MEDS: IPRATROPIUM BROM 0.5 MG/2.5ML INH SOL NEB SCH (18:46)
[2024-09-17] MEDS: ALBUTEROL SULF 2.5 MG/0.5ML(0.5%) NEB SOLN NEB SCH (18:46)
[2024-09-17] MEDS: methylPREDNISolone SOD SUCC 125 MG/2 ML VL IV SCH (22:07)
[2024-09-18] VITALS (19 sets, daily range): BP systolic 148–197; BP diastolic 52–90; PULSE 83–114; RESP 16–22; TEMP 97.9–98.8; O2SAT 89–100
[2024-09-18] MEDS: AZTREONAM 1GM INJ 1 GM in D5W 5% 50 ML IV SCH (00:40)
[2024-09-18] MEDS ORDERED: DEXTROSE (50%) 50ML SYRG IV PRN ×5 (06:30→17:00)
[2024-09-18] MEDS: ACCU-CHEK COMFORT CURVE STRIP VI SCH ×4 (06:55→16:00)
[2024-09-18] MEDS: InsuLIN REG 1unit/0.01ml Soln (100units/ml) SC SCH ×4 (06:55→17:09)
--- NOTE | 2024-09-18 07:04 | DVH ---
CHEST RADIOGRAPH Indication: sob Technique: Single AP portable chest radiograph was obtained. Comparison: XY CHEST PORTABLE on DOS: 09/17/24, XY CHEST PORTABLE on DOS: 12/18/22, XY CHEST PORTABLE on DOS: 12/12/22, XY CHEST PORTABLE on DOS: 09/17/24 FINDINGS: Lungs: Low lung volumes. Bilateral interstitial opacities and ill-defined airspace opacities. Cardiac: Mild cardiomegaly. Pulmonary vasculature: Prominence of the pulmonary vasculature. Mediastinum/ajit: Unremarkable. Bones: No acute osseous abnormality identified. Other: No other significant findings. IMPRESSION: Cardiomegaly, prominence of the pulmonary vasculature and interstitial opacities, findings may be see n with pulmonary vascular congestion / interstitial pulmonary edema in the appropriate clinical setti ng.
[2024-09-18 07:05] LABS: Basophils # (auto) 0 10 ^3/uL (0-0.2); Basophils % (auto) 0.1 % (0.0-2.0); Eosinophils # (auto) 0 10 ^3/uL (0-0.8); Hemoglobin 11.8 g/dL (12.2-16.2); Lymphocytes # (auto) 0.9 10 ^3/uL (0.4-5.4); Mean Corpuscular Volume 77.6 fL (80.0-100.0); Monocytes # (auto) 0.3 10 ^3/uL (0-1.3); Monocytes % (auto) 3.7 % (0.0-12.0); Nucleated Red Blood Cells % 0.1 %
[2024-09-18 07:20] LABS: Alanine Aminotransferase 22 U/L (7-40); Alkaline Phosphatase 70 U/L (46-116); Anion Gap 10 (5-15); BUN/Creatinine Ratio 16.8 (10.0-20.0); Carbon Dioxide 28 mmol/L (20-31); Potassium 4.4 mmol/L (3.5-5.1)
[2024-09-18 07:21] LABS: Albumin 4.6 g/dL (3.2-4.8); Aspartate Aminotransferase 20 U/L (13-40)
[2024-09-18 07:22] LABS: Total Protein 7.1 g/dL (5.7-8.2)
[2024-09-18 07:25] LABS: Hematocrit 38.2 % (36.0-46.0); Lactic Acid w/Reflex 3.2 mmol/L (0.4-2.0); Lymphocytes % (auto) 9.6 % (10.0-50.0); Mean Corpuscular Hgb Conc. 30.9 g/dL (32.0-36.0); Neutrophils % (auto) 86.6 % (37.0-80.0); Platelet Count (auto) 201 10^3/uL (140-450); Red Blood Cells 4.92 10^6/uL (4.0-5.20); Red Cell Distribution Width 17.7 % (11.8-14.3); White Blood Cell 9.3 10^3/uL (4.4-10.8)
[2024-09-18 07:36] LABS: Bilirubin, Total 0.3 mg/dL (0.2-1.0); Blood Urea Nitrogen 25 mg/dL (9-23); Calcium 10.9 mg/dL (8.7-10.4); Chloride 97 mmol/L (98-107); Sodium 135 mmol/L (136-145)
[2024-09-18 07:38] LABS: Glucose 420 mg/dL (74-106)
[2024-09-18] MEDS ORDERED: ACCU-CHEK COMFORT CURVE STRIP VI SCH ×3 (08:15→20:00)
[2024-09-18] MEDS ORDERED: InsuLIN REG 1unit/0.01ml Soln (100units/ml) SC SCH ×6 (08:15→22:00)
[2024-09-18] MEDS ORDERED: IOHEXOL 350 MG/ML 100ML IJ ONE (08:20)
[2024-09-18] MEDS: levoFLOXacin 500MG 100 ML IV ONE (08:30)
[2024-09-18] MEDS: INSULIN LANTUS (GLARGINE) 1 /0.01ml (100units/ml) SC ONE (08:30)
--- NOTE | 2024-09-18 09:47 | DVH ---
US BiLat Lower DVT HISTORY: rule out DVT COMPARISON: None TECHNIQUE: Duplex Doppler evaluation of the deep venous system of the lower extremity from the common femoral veins, superficial femoral vein, great saphenous vein, deep femoral vein, popliteal vein, an d calf veins, including color Doppler and spectral/pulsed waveform analysis, was performed. FINDINGS: Right: - Common femoral vein: Compressible - Deep femoral vein: Compressible - Femoral vein: Compressible - Popliteal vein: Compressible - Posterior tibial vein: Waveforms present - Peroneal vein: Not seen. - Other: Nothing Left: - Common femoral vein: Compressible - Deep femoral vein: Compressible - Femoral vein: Compressible - Popliteal vein: Compressible - Posterior tibial vein: Waveforms present - Peroneal vein: Not seen. - Other: Nothing IMPRESSION: No right or left lower extremity deep venous thrombosis.
[2024-09-18] MEDS ORDERED: AZITHROMYCIN 500MG/ 250ML 250 ML IV SCH (10:00)
[2024-09-18] MEDS ORDERED: PANTOPRAZOLE 40 MG/10 ML VIAL INJ IV SCH (10:00)
[2024-09-18] MEDS: ENOXAPARIN SOD 100 MG/1 ML SYRINGE SC SCH (10:00)
[2024-09-18] MEDS ORDERED: ENOXAPARIN SOD 40 MG/0.4 ML SYRINGE SC SCH (10:00)
[2024-09-18] MEDS: predniSONE 20 MG TAB PO SCH (10:04)
[2024-09-18] MEDS: FUROSEMIDE 20 MG/2 ML VIAL IV ONE (10:05)
--- NOTE | 2024-09-18 11:14 | DVHPNRES ---
Progress Note Date Seen: Sep 18, 2024 Resident Creating Document: THAIS SAGASTUME RESIDENT Medical Necessity Reason Pt with a Central, PICC or Fol: No Subjective Review of Systems Patient is a 49-year-old female with past medical history of hypertension, dyslipidemia, type 2 diabetes, asthma, seizures, UTI causing sepsis in 2022, questionable pulmonary hypertension, who came in due to shortness of breath and cough that has been ongoing for the past 6 days. According to patient and her spouse, she usually runs hypercapnic and thought that she was having a "hypercapnic attack". Patient denies having any ill contacts or recent travel. Patient notes that she was admitted to [facility] 2 weeks ago for similar complaints and hypercapnia of 105 were she was treated for DKA. Patient also notes she has had 4 episodes of pneumonia in this year. Chest x-ray showed cardiomegaly, prominent pulmonary vasculature and interstitial opacities . Past surgical history: , tubal ligation, carpal tunnel tendon release Home medications: Albuterol, baclofen, buspirone, Dilaudid, lurasidone, methyl naltrexone patch? , nystatin, pregabalin, ropinirole, metolazone, Bumex, insulin Levemir 80 units b.i.d., insulin Humulin Past Hospitalization: 2 weeks ago at [facility] for DKA Social & Personal history: Patient lives with her . Quit smoking in 2011, prior to that was smoking half a pack of cigarettes per day for 13 years. Drinks alcohol occasionally, last drink 2 weeks ago. Uses marijuana occasionally, last usage was 3 months ago. Denies using any other drugs. Allergies: Ciprofloxacin, metformin, penicillin, insulin glargine, insulin Lantus, OxyContin, NSAIDs Patient seen and examined at bedside. Patient is alert and oriented to time, place person and responding to all questions. General: Reports feeling fatigued Eyes: No Pain, No Vision change, No Conjunctivae inflammation, No Eyelid inflammation, No Other, No Redness ENT: No Ear pain, No Ear discharge, No Nose pain, Nose discharge, No Nose congestion, No Mouth pain, No Mouth swelling, No Throat pain, No Throat swelling, No Other Cardiovascular: No Chest Pain, Palpitations, No Orthopnea, No Paroxysmal No Dyspnea, No Edema, No Lt Headedness, No Other Respiratory: Cough, Shortness of breath, SOB with exertion, No Wheezing, No Hemoptysis, No Pleuritic Pain, No Sputum, No Other Gastrointestinal: Nausea, No Vomiting, No Abdominal Pain, No Diarrhea, C onstipation, No Melena, No Hematochezia, No Other Genitourinary: No Dysuria, No Frequency, No Incontinence, No Hematuria, No Retention, No Other Musculoskeletal: No other, No neck pain, No shoulder pain, No arm pain, No back pain, No hand pain, No leg pain, No foot pain Skin: No Rash, No Lesions, No Jaundice, No Bruising, No Other Objective vital signs Vital Sign Date Time Temp Pulse Resp B/P (MAP) Pulse Ox O2 Delivery O2 Flow Rate FiO2 09/18/24 10:05 151/55 09/18/24 10:00 94 Nasal Cannula* 5 40 09/18/24 09:00 97.9 103 20 97.9 Total Intake and Output 09/17/24 09/17/24 09/18/24 15:00 23:00 07:00 Intake Total 230 ml 1000 ml Output Total 1800 ml Balance 230 ml -800 ml medications Current Medications Medications Dose Ordered Sig/Prashanth Route Start Time Stop Time Status Last Admin Dose Admin Docusate Sodium 100 mg BIDPRN PRN PO 09/17/24 12:30 Acetaminophen 650 mg Q6HP PRN PO 09/17/24 12:30 09/18/24 06:09 650 MG Albuterol 2.5 mg Q6HWA BANNER 09/17/24 18:00 09/18/24 06:23 2.5 MG Ipratropium [place] 0.5 mg Q6HWA BANNER 09/17/24 18:00 09/18/24 06:23 0.5 MG Hydralazine HCl 10 mg Q6HP PRN IV 09/17/24 18:00 09/17/24 18:12 10 MG Enoxaparin Sodium 150 mg Q12HR SC 09/18/24 10:00 Insulin Glargine 25 units QAM SC 09/19/24 07:00 Diagnostic Test (Pha) 1 strip Q6HR 09/18/24 12:00 Insulin Human Regular Q6HR SC 09/18/24 12:00 Dextrose 50 ml UD PRN IV 09/18/24 08:30 Prednisone 40 mg DAILY PO 09/18/24 11:00 09/18/24 10:04 40 MG Examination General Appearance: Cooperative. Well developed. Overweight/obese. In moderate distress Head Exam: Normal inspection Neck Exam: Normal inspection. Non-tender. Normal alignment Pulmonary/Respiratory: Chest non-tender. Decreased bilateral breath sounds, no crackles, no wheezing. Cardiovascular/Chest: Regular rate and rhythm. No murmurs. No JVD. Peripheral Pulses: 2+ Radial (R). 2+ Radial (L). 2+ Pedal (R). 2+ Pedal (L) Abdominal Exam: Normal bowel sounds. Soft. normal abdomen, no visible veins, Nontender. No hepatospenomegaly. No masses Lower extremities: +1 lower extremity edema Neuro/Mental Status: A&O x4. Coherent. Thoughts/Psych: Normal thought pattern. Appropriate mood and affect. Good judgement and insight Skin Exam: Normal inspection. Normal color. Warm. Dry laboratory and microbiology Laboratory Tests 09/18/24 06:15 Test 09/18/24 06:15 Range/Units Serum Glucose 420 *H 74-106 mg/dL Microbiology Date/Time Source Procedure Growth Status 09/17/24 11:00 Blood Blood Culture - Preliminary NO GROWTH AFTER 24 HOURS OF INCUBATION. Resulted Labs and/or images reviewed: Labs reviewed by me, Image(s) reviewed by me Problem List/Assessment/Plan Problem List/Assessment/Plan Acute on chronic hypoxic/hypercapnic respiratory failure Questionable asthma exacerbation Obesity hypoventilation syndrome ?Right-sided heart failure can not be ruled out Lactic acidosis - CXR: Cardiomegaly, prominence of the pulmonary vasculature and interstitial opacities, findings may be seen with pulmonary vascular congestion/interstitial pulmonary edema in the appropriate clinical setting. - extremity venous study: No right or left lower extremity DVT - pending CT PA, patient denied therapeutic dose Lovenox - azithromycin 500 mg p.o. today, 250 mg p.o. daily for 4 days - albuterol med nebs , ipratropium med nebs - prednisone 40 mg p.o. 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 Goals of care: Full code, discussed for >16 minutes on 09/18/24 Plan discussed with patient Plan discussed with Dr. Reyna Plan discussed with: Patient, Spouse, Other (RN) My Orders My Orders Orders - THAIS SAGASTUME RESIDENT Procedure Category Date Status Time * Wound Consult CONS 09/18/24 Transmitted Date of Service: Sep 18, 2024 Billing Provider: SONYA REYNA MD Common Visit Codes: [id number] CARE 30-74 MIN Coding Comment Comment Attending Attestation I saw and evaluated the patient. I reviewed the residents note and agree with findings and plan as documented in the residents note except as documented below. a/p acute on chronic hypoxic hypercapnic respiratory failure IDDM uncontrolled with hyperglycemia morbid obesity CARIDAD OHS PH type 3? asthma? illness anxiety miltiple allergies chronic pain o2 supp maintain >88 albuterol ipatropium bipap at night basal bolus insulin + ISS fs x4 resume home meds azithromycin IV pain management pulm consult for PH 45 minutes critical care time spent on this patient including evaluation, chart review, formulating plan and communication with team, excluding any procedures or point of care imaging THAIS SAGASTUME Sep 18, 2024 11:14 SONYA REYNA MD Sep 18, 2024 21:51
[2024-09-18] MEDS ORDERED: HYDR2TAB58 PO (11:28)
[2024-09-18] MEDS ORDERED: HYDROMORPHONE 4 MG PO PRN (11:45)
[2024-09-18] MEDS: AZITHROMYCIN 250 MG TAB PO ONE (12:42)
[2024-09-18] MEDS ORDERED: LEVEMIR SC (14:04)
[2024-09-18] MEDS: HYDROMORPHONE 4 MG PO PRN (14:05)
--- NOTE | 2024-09-18 18:28 | DVHINCON2 ---
Date of service: Sep 18, [address] Hickey Reason for Consultation Acute on chronic hypoxic/hypercarbic respiratory failure, asthma exacerbation. History of Present Illness A 49-year-old woman with past medical history that includes hypertension, hyperlipidemia, diabetes, asthma, seizures, and diabetes who presented to the ED on 09/17/24 with shortness of breath, nausea, productive light yellow sputum. Patient stated sx started on Wednesday. She went to [facility] on Wednesday, received 1 breathing treatment and a pain shot for her back pain. On the same day, 09/15/24, patient went to her doctor and was advised to get a second opinion. She stopped taking her Keppra because it caused her double vision and constipation; pt has neurology appointment in November of 2024. Patient uses 2 L of oxygen during the day and 3 L at night along with her CPAP. Patient ambulates minimally with a front-wheel walker, typically uses her electric wheelchair. She denied headache, chest pain, fever, chills, abdominal pain, N/V/D or other associated sx. Patient was admitted for further care and pulmonary consultation is requested for evaluation and management d/t the above findings. Review of Systems: 14-point review of systems negative unless otherwise noted above. Past Medical History: Hypertension, hyperlipidemia, asthma, seizures, diabetes. Bilateral carpal tunnel syndrome Past Surgical History: , Tubal Ligation Medications: Reviewed. Allergies: Ibuprofen NSAIDs Oxycodone Penicillins Basaglar. Family History: Heart disease. CVA. Dad and aunt with seizures. Social History: Ex-smoker. Occasional alcohol use. Positive marijuana use. Family History: FH: heart disease Allergies: Coded Allergies: Ibuprofen (Verified Allergy, Unknown, 10/13/20) NSAIDs (Verified Allergy, Unknown, 12/18/22) Oxycodone (Verified Allergy, Unknown, 10/13/20) Penicillins (Verified Allergy, Unknown, 12/18/22) Uncoded Allergies: BISAGLER (Allergy, Unknown, 10/13/20) Home Meds Active Scripts Azithromycin (ZITHROMAX TABLET) 250 Mg Tb, 250 MG PO DAILY for 3 Days, #3 TAB Prov:THAIS SAGASTUME 09/19/24 Nystatin (Mycostatin) 1 Applic Ap, 1 APPLIC TOP BID for 7 Days, #120 APPLIC Prov:JUAN ALBERTO OLIVA MD 12/15/22 Reported Medications Insulin Detemir (Levemir) Inj, 80 SC BID, INJ 09/18/24 Meloxicam (Meloxicam) 15 Mg Tab, 1 TAB PO DAILY 12/12/22 Aspirin (Aspirin Low Dose) 81 Mg Tab, 1 TAB PO DAILY 12/12/22 Medroxyprogesterone Acetate (Medroxyprogesterone Aceta) 10 Mg Tab, 1 TAB PO DAILY 12/12/22 Hydromorphone Hcl (Dilaudid) 4 Mg Tab, 1 TAB PO TID PRN 12/12/22 Ropinirole Hydrochloride (Ropinirole Hydrochloride) 2 Mg Tab, PO 12/12/22 Cetirizine HCl (Cetirizine Hydrochloride) 10 Mg Tab, 1 TAB PO DAILY 12/12/22 Buspirone HCl (Buspirone Hydrochloride) 30 Mg Tab, 1 TAB PO BID 12/12/22 Lurasidone Hcl (LATUDA) 80 Mg Tab, 1 TAB PO 12/12/22 Baclofen (Baclofen) 20 Mg Tab, 20 12/12/22 Pregabalin (Pregabalin) 200 Mg Cap, 1 CAP PO TID 12/12/22 Methylnaltrexone [place] (Relistor) 150 Mg Tab, TAB PO 12/12/22 Ubrogepant (Ubrelvy) 100 Mg Tab, PO 12/12/22 Albuterol Sulfate (Albuterol Sulfate Hfa) 108 Mcg/Act Aer, INH 12/12/22 Ipratropium [place] Hfa (Atrovent Hfa) 17 Mcg Aer, INH 12/12/22 Morphine Sulfate (Morphine Sulfate Cr) 30 Mg Tab, 1 TAB PO BIDPRN PRN 12/12/22 Hydromorphone Hcl (Hydromorphone Hcl) 4 Mg Tab, PO 12/12/22 Oxybutynin Chloride (Oxybutynin Chloride) 5 Mg Tab, 1 TAB PO BID 12/12/22 Montelukast Sodium (MONTELUKAST SODIUM) 10 Mg Tab, 1 TAB PO DAILY 12/12/22 Ropinirole Hydrochloride (Ropinirole Hcl) 2 Mg Tab, 2 12/12/22 Rosuvastatin Calcium (Rosuvastatin Calcium) 40 Mg Tab, 1 TAB PO 12/12/22 Discontinued Reported Medications Glipizide (Glipizide Er) 10 Mg Tab 12/12/22 Metformin Hydrochloride (Metformin Hcl) 1,000 Mg Tab, 1 TAB PO BID 12/12/22 Current Medications Current Medications Medications (Trade) Dose Ordered Sig/Prashanth Route PRN Reason Start Time Stop Time Status Last Admin Methylprednisolone Sodium Succinate (Solu Medrol) 60 mg BID IV 09/17/24 22:00 09/18/24 08:40 DC 09/17/24 22:07 Pantoprazole Sodium (Protonix) 40 mg DAILY IV 09/18/24 10:00 09/18/24 08:40 DC Enoxaparin Sodium (Lovenox) 40 mg DAILY SC 09/18/24 10:00 09/18/24 06:25 DC Azithromycin 250 ml @ 125 mls/hr DAILY IV 09/18/24 10:00 09/18/24 08:40 DC Enoxaparin Sodium (Lovenox) 150 mg Q12HR SC 09/18/24 10:00 09/18/24 16:53 DC Diagnostic Test (Pha) (Accu-Chek Comfort Curve T) 1 strip ACHS 09/18/24 07:00 09/18/24 08:16 DC 09/18/24 06:55 Insulin Human Regular (InsuLIN R) AC [place] 09/18/24 07:00 09/18/24 08:16 DC 09/18/24 06:55 Insulin Human Regular (InsuLIN R) [facility] 09/18/24 22:00 09/18/24 08:16 DC Dextrose 50 ml UD PRN IV Blood Sugar LESS THAN 60 09/18/24 06:30 09/18/24 08:46 DC Insulin Human Regular (InsuLIN R) Q4HR MO 09/18/24 08:15 09/18/24 08:29 DC Insulin Human Regular (InsuLIN R) HS MO 09/18/24 08:15 09/18/24 08:20 DC Diagnostic Test (Pha) (Accu-Chek Comfort Curve T) 1 strip Q4HR 09/18/24 08:15 09/18/24 08:33 DC Insulin Human Regular (InsuLIN R) Q4H [place] 09/18/24 08:00 09/18/24 08:47 DC 09/18/24 08:00 Diagnostic Test (Pha) (Accu-Chek Comfort Curve T) 1 strip Q4H 09/18/24 08:00 09/18/24 08:47 DC 09/18/24 08:00 Levofloxacin/ Dextrose 100 ml @ 100 mls/hr DAILY IV 09/19/24 10:00 09/18/24 11:14 DC Insulin Glargine (Lantus) 25 units QAM SC 09/19/24 07:00 09/18/24 12:27 DC Diagnostic Test (Pha) (Accu-Chek Comfort Curve T) 1 strip Q6HR 09/18/24 12:00 09/18/24 12:25 DC Insulin Human Regular (InsuLIN R) Q6HR SC 09/18/24 12:00 09/18/24 12:25 DC Dextrose 50 ml UD PRN IV Blood Sugar LESS THAN 60 09/18/24 08:30 09/18/24 12:25 DC Prednisone 40 mg DAILY PO 09/18/24 11:00 09/18/24 10:04 Patient Own Medication 1 TIDP PRN PO pain 09/18/24 11:45 09/18/24 13:41 DC Azithromycin (Zithromax Tablet) 250 mg DAILY PO 09/19/24 10:00 Future Hold Diagnostic Test (Pha) (Accu-Chek Comfort Curve T) 1 strip ACHS 09/18/24 17:00 09/18/24 16:54 DC 09/18/24 12:42 Insulin Human Regular (InsuLIN R) AC SC 09/18/24 17:00 09/18/24 16:54 DC 09/18/24 12:42 Insulin Human Regular (InsuLIN R) HS SC 09/18/24 22:00 09/18/24 16:54 DC Dextrose 50 ml UD PRN IV Blood Sugar LESS THAN 60 09/18/24 12:30 09/18/24 16:54 DC Patient Own Medication 1 TIDP PRN PO pain 09/18/24 13:45 09/18/24 14:20 DC 09/18/24 14:05 Hydromorphone HCl (Dilaudid Tablet) 4 mg TIDP PRN PO SEVERE PAIN (7-10 PAIN SCALE) 09/18/24 22:00 Patient Own Medication 80 unit BID SC 09/18/24 22:00 Enoxaparin Sodium (Lovenox) 150 mg Q12HR SC 09/18/24 22:00 Diagnostic Test (Pha) (Accu-Chek Comfort Curve T) 1 strip IQ4HR 09/18/24 20:00 09/18/24 17:07 DC Insulin Human Regular (InsuLIN R) IQ4HR SC 09/18/24 20:00 09/18/24 17:08 DC Dextrose 50 ml UD PRN IV Blood Sugar LESS THAN 60 09/18/24 17:00 09/18/24 17:08 DC Diagnostic Test (Pha) (Accu-Chek Comfort Curve T) 1 strip IQ4HR 09/18/24 16:00 09/18/24 16:00 Insulin Human Regular (InsuLIN R) IQ4HR SC 09/18/24 16:00 09/18/24 17:09 Dextrose 50 ml UD PRN IV Blood Sugar LESS THAN 60 09/18/24 16:00 Pregabalin (Lyrica Capsule) 200 mg TID PO 09/18/24 22:00 UNV Baclofen (Liorisal Tablet) 20 mg Q8HR PO 09/18/24 22:00 Medroxyprogesterone Acetate (Provera Tablet) 10 mg DAILY PO 09/18/24 18:21 Vital Signs Vital Signs Date Time Temp Pulse Resp B/P (MAP) Pulse Ox O2 Delivery O2 Flow Rate FiO2 09/18/24 17:00 98.8 97 22 197/90 (125) 96 98.8 09/18/24 10:00 Nasal Cannula* 5 40 Physical Exam Gen.: Patient lying in bed in no apparent distress. On supplemental oxygen. Head: Normocephalic, atraumatic. Eyes: EOMI/PERRLA. Ears: Normal hearing. Normal anatomy. Neck/trachea: Trachea midline, supple. Nose: Normal external anatomy. Mouth: Moist mucous membranes. Chest: Decreased air entry bilaterally. No wheezing or rhonchi. Cardiovascular: Positive S1, positive S2. Regular rate and rhythm. Abdomen: Positive bowel sounds in all 4 quadrants. Soft, non-tender, non- distended. : Deferred. Rectal: Deferred. Skin: Warm, dry. Intact. Extremities: 2+ radial pulses bilaterally. No lower extremity edema. Neuro: Awake, alert, oriented x3. No gross motor or sensory deficits. Cranial nerves II through XII intact. Gait not assessed. Labs/Diagnostic Data Labs Test 09/18/24 17:01 09/18/24 11:30 09/18/24 06:15 09/17/24 14:34 Range/Units POC Glucose 483 *H 70-106 mg/dl Lactic Acid Level 4.4 *H 0.4-2.0 mmol/L White Blood Count 9.3 4.4-10.8 10^3/uL Red Blood Count 4.92 4.0-5.20 10^6/uL Hemoglobin 11.8 L 12.2-16.2 g/dL Hematocrit 38.2 36.0-46.0 % Mean Corpuscular Volume 77.6 L 80.0-100.0 fL Mean Corpuscular Hemoglobin 24.0 L 28.0-32.0 pg Mean Corpuscular Hemoglobin Concent 30.9 L 32.0-36.0 g/dL Red Cell Distribution Width 17.7 H 11.8-14.3 % Platelet Count 201 140-450 10^3/uL Mean Platelet Volume 9.6 6.9-10.8 fL Neutrophils (%) (Auto) 86.6 H 37.0-80.0 % Lymphocytes (%) (Auto) 9.6 L 10.0-50.0 % Monocytes (%) (Auto) 3.7 0.0-12.0 % Eosinophils (%) (Auto) 0.0 0.0-7.0 % Basophils (%) (Auto) 0.1 0.0-2.0 % Neutrophils # (Auto) 8.0 1.6-8.6 10 ^3/uL Lymphocytes # (Auto) 0.9 0.4-5.4 10 ^3/uL Monocytes # (Auto) 0.3 0-1.3 10 ^3/uL Eosinophils # (Auto) 0 0-0.8 10 ^3/uL Basophils # (Auto) 0 0-0.2 10 ^3/uL Nucleated Red Blood Cells 0.1 % Sodium Level 135 L 136-145 mmol/L Potassium Level 4.4 3.5-5.1 mmol/L Chloride Level 97 L 98-107 mmol/L Carbon Dioxide Level 28 20-31 mmol/L Anion Gap 10 5-15 Blood Urea Nitrogen 25 H 9-23 mg/dL Creatinine 1.49 H 0.550-1.02 mg/dL Glomerular Filtration Rate Calc 43 >90 mL/min BUN/Creatinine Ratio 16.8 10.0-20.0 Serum Glucose 420 *H 74-106 mg/dL Calcium Level 10.9 H 8.7-10.4 mg/dL Total Bilirubin 0.3 0.2-1.0 mg/dL Aspartate Amino Transferase (AST) 20 13-40 U/L Alanine Aminotransferase (ALT) 22 7-40 U/L Alkaline Phosphatase 70 46-116 U/L Troponin I High Sensitivity 5 </=34 ng/L Total Protein 7.1 5.7-8.2 g/dL Albumin 4.6 3.2-4.8 g/dL D-Dimer, Quantitative 0.50 H 0.0-0.49 mg/L FEU Test 09/17/24 12:00 09/17/24 11:11 09/17/24 11:00 Range/Units Hemoglobin A1c 11.5 H <5.7 % A1C B-Type Natriuretic Peptide 51.80 0-100 pg/mL Blood Gas Specimen Type Arterial Blood Gas Sample Site Right radial Blood Gas Patient Temperature 37.0 Arterial Blood Date Drawn [id number] Arterial Blood pH 7.331 L 7.350-7.450 Arterial Blood Partial Pressure CO2 65.0 *H 32.0-45.0 mmHg Arterial Blood Partial Pressure O2 78.4 L 83.0-108.0 mmHg Arterial Blood HCO3 33.6 H 21.0-28.0 mmol/L Arterial Blood Oxygen Saturation 94.1 94.0-98.0 % Arterial Blood Base Excess 5.9 H -2.0-3.0 mmol/L Arterial Blood Oxyhemoglobin 93.1 L 94.0-98.0 % Arterial Blood Carboxyhemoglobin 0.7 0.5-1.5 % Arterial Blood Methemoglobin 0.4 0.0-1.5 % Florentino Test Yes Blood Gas Total Hemoglobin 12.00 12.0-16.0 g/dL Blood Gas Liter Flow 4.00 Blood Gas Modality Nasal cannula FiO2 % 36.0 Blood Gas Critical Value Read Back Yes Blood Gas Notified Whom nathan Fam md Blood Gas Notified Time [id number] Blood Gas Notified By Jose Dnaiel aguirre Urine Color Light-yellow Yellow Urine Clarity Turbid H Clear Urine pH 5.5 5.0-9.0 Urine Specific [place] 1.010 1.001-1.035 Urine Protein Negative Negative Urine Ketones Negative Negative Urine Blood Negative Negative /uL Urine Nitrite Negative Negative Urine Bilirubin Negative Negative Urine Urobilinogen Normal Negative mg/dL Urine Leukocyte Esterase 3+ Negative /uL Urine RBC 1 0 - 4 /hpf Urine WBC 130 0 - 5 /hpf Urine Squamous Epithelial Cells Few <5 /hpf Urine Bacteria None seen None Seen /hpf Urine Glucose 4+ H Normal mg/dL Influenza Type A Antigen Negative Negative Influenza Type B Antigen Negative Negative SARS-CoV-2 Antigen (Rapid) Negative NEGATIVE Microbiology Date/Time Source Procedure Growth Status 09/17/24 11:10 Blood Blood Culture - Preliminary NO GROWTH AFTER 24 HOURS OF INCUBATION. Resulted Assessment Impression: Acute on chronic hypoxic respiratory failure Acute on chronic hypercarbic respiratory failure Asthma exacerbation Atelectasis Morbid obesity Interstitial pulmonary edema Lactic acidosis Hyperglycemia Plan: Supplemental oxygen 5 LPM NC Titrate to keep O2 sats above 92%. Taper O2 as tolerated. Continue bronchodilators. Mucinex q.12 hours. Benadryl. Continue antibiotics Prednisone PO. Incentive spirometry Therapeutic Lovenox Pain control Avoid oversedation Accu-Cheks, ISS. Diurese w/ Lasix as tolerated Monitor renal function. Monitor electrolytes. Supplement as necessary. Monitor ins and outs. DVT prophylaxis. Prognosis: Poor given patient's multiple co-morbidities. Rest of plan per hospitalist and other consultants. Thank you, Dr. Hickey, for allowing me to participate in this patient's care. Further recommendations will depend on the patient's clinical course. Please do not hesitate to contact me if you have any questions or concerns. This medical document was created using an electronic medical record system with [employer] dictation system. Although these documentations are being carefully reviewed, there may still be some phonetic and typographical changes. The errors are purely typographical, due to imperfection on the software program, and do not reflect any compromise in the patient's medical care Plan discussed with: Patient, Other (JUSTINE Maxwell/MD Hickey) CAMILLA BRITTON MD Sep 18, 2024 18:28
[2024-09-18] MEDS ORDERED: hydrALAZINE HCL 20 MG/ML VL IV ONE (18:45)
[2024-09-18] MEDS: guaiFENesin-DM 100/10mg/5ml SYR PO PRN (20:26)
[2024-09-18] MEDS: diphenhdrAMINE HCL 25 MG CAP PO PRN (20:27)
[2024-09-18] MEDS: medroxyPROGESTERone ACETATE 5 MG TAB PO SCH (20:28)
[2024-09-18 21:50] LABS: Urine Bacteria None Seen /hpf (None Seen)
[2024-09-18] MEDS: ENOXAPARIN SOD 150 MG/1 ML SYRINGE SC SCH (22:00)
[2024-09-18 22:15] LABS: Opiate Scree,Urine Neg (NEGATIVE)
[2024-09-18 22:20] LABS: Amphetamine Screen, Urine Neg (NEGATIVE); Barbiturate Scree,Urine Neg (NEGATIVE); Benzodiazephine Screen, Urine Neg (NEGATIVE); Cannabinoid Screen, Urine Neg (NEGATIVE); Cocaine Screen, Urine Neg (NEGATIVE); Phencyclidine Screen, Urine Neg (NEGATIVE)
[2024-09-18] MEDS: INSULIN DETEMIR 80 UNIT SC SCH (22:21)
[2024-09-18] MEDS: PREGABALIN 25 MG CAP PO SCH (22:25)
[2024-09-18] MEDS: BACLOFEN 10 MG TAB PO SCH (22:26)
[2024-09-18] MEDS: PREGABALIN CAPSULE 75 MG CAP PO SCH (22:26)
[2024-09-18 22:28] LABS: Urine Blood 3+ /uL (Negative); Urine Budding Yeast OCCASIONAL /hpf (None Seen); Urine Clarity Clear (Clear); Urine Color Colorless (Yellow); Urine Protein, UAD Negative (Negative); Urine Specific Gravity 1.016 (1.001-1.035); Urine Urobilinogen Normal (Negative); Urine WBC 30 /hpf (0 - 5); Urine pH 6.5 (5.0-9.0)
[2024-09-18] MEDS: HYDROmorphone HCL 2 MG TAB PO PRN (23:46)
[2024-09-19] VITALS (17 sets, daily range): BP systolic 140–179; BP diastolic 54–96; PULSE 83–114; RESP 18–20; TEMP 97.7–98.8; O2SAT 92–100
[2024-09-19 00:56] LABS: Potassium 3.9 mmol/L (3.5-5.1)
[2024-09-19 00:57] LABS: Anion Gap 11 (5-15); Carbon Dioxide 28 mmol/L (20-31)
[2024-09-19 01:08] LABS: Calcium 11.3 mg/dL (8.7-10.4); Chloride 95 mmol/L (98-107); Glucose 471 mg/dL (74-106); Sodium 134 mmol/L (136-145)
[2024-09-19 01:44] LABS: BUN/Creatinine Ratio 18.7 (10.0-20.0)
[2024-09-19 01:48] LABS: Blood Urea Nitrogen 28 mg/dL (9-23)
--- NOTE | 2024-09-19 06:13 | DVHPNRES ---
Progress Note Medical Necessity Reason Pt with a Central, PICC or Fol: No Objective vital signs Vital Sign Date Time Temp Pulse Resp B/P (MAP) Pulse Ox O2 Delivery O2 Flow Rate FiO2 09/19/24 05:59 95 18 96 09/19/24 05:53 Nasal Cannula 3.0 09/19/24 05:53 32 09/19/24 05:00 97.7 140/86 (104) 97.7 Total Intake and Output 09/18/24 09/18/24 09/19/24 15:00 23:00 07:00 Intake Total 350 ml 1200 ml Output Total 1000 ml Balance 350 ml 200 ml medications Current Medications Medications Dose Ordered Sig/Prashanth Route Start Time Stop Time Status Last Admin Dose Admin Docusate Sodium 100 mg BIDPRN PRN PO 09/17/24 12:30 Acetaminophen 650 mg Q6HP PRN PO 09/17/24 12:30 09/18/24 06:09 650 MG Ipratropium [place] 0.5 mg Q6HWA NEB 09/17/24 18:00 09/19/24 05:53 0.5 MG Hydralazine HCl 10 mg Q6HP PRN IV 09/17/24 18:00 09/19/24 00:41 10 MG Prednisone 40 mg DAILY PO 09/18/24 11:00 09/18/24 10:04 40 MG Azithromycin 250 mg DAILY PO 09/19/24 10:00 Future Hold Hydromorphone HCl 4 mg TIDP PRN PO 09/18/24 22:00 09/18/24 23:46 4 MG Patient Own Medication 80 unit BID SC 09/18/24 22:00 09/18/24 22:21 80 UNIT Enoxaparin Sodium 150 mg Q12HR SC 09/18/24 22:00 Diagnostic Test (Pha) 1 strip IQ4HR 09/18/24 16:00 09/19/24 04:00 1 STRIP Insulin Human Regular IQ4HR SC 09/18/24 16:00 09/19/24 04:38 20 UNITS Dextrose 50 ml UD PRN IV 09/18/24 16:00 Pregabalin 150 mg TID PO 09/18/24 22:00 09/18/24 22:26 150 MG Baclofen 20 mg Q8HR PO 09/18/24 22:00 09/18/24 22:26 20 MG Medroxyprogesterone Acetate 10 mg DAILY PO 09/18/24 18:21 09/18/24 20:28 10 MG Pregabalin 50 mg TID PO 09/18/24 22:00 09/18/24 22:25 50 MG Diphenhydramine HCl 25 mg Q6HP PRN PO 09/18/24 18:30 09/18/24 20:27 25 MG Guaifenesin/ Dextromethorphan 10 ml Q4HP PRN PO 09/18/24 18:45 09/19/24 04:55 10 ML laboratory and microbiology Laboratory Tests 09/19/24 00:37 09/18/24 06:15 Test 09/19/24 00:37 Range/Units Serum Glucose 471 *H 74-106 mg/dL Microbiology Date/Time Source Procedure Growth Status 09/17/24 11:10 Blood Blood Culture - Preliminary NO GROWTH AFTER 24 HOURS OF INCUBATION. Resulted Problem List/Assessment/Plan Problem List/Assessment/Plan Acute on chronic hypoxic/hypercapnic respiratory failure Questionable asthma exacerbation Obesity hypoventilation syndrome interstitial pulmonary edema ?Right-sided heart failure can not be ruled out Lactic acidosis - CXR: Cardiomegaly, prominence of the pulmonary vasculature and interstitial opacities, findings may be seen with pulmonary vascular congestion/interstitial pulmonary edema in the appropriate clinical setting. - extremity venous study: No right or left lower extremity DVT - pending CT PA, patient denied therapeutic dose Lovenox - azithromycin 500 mg p.o. today, 250 mg p.o. daily for 4 days - albuterol med nebs , ipratropium med nebs - prednisone 40 mg p.o. - consulted pulmonology XU likely hemodynamically mediated/VMN - IV NS, 1 bag given - we will continue to monitor Type 2 diabetes, uncontrolled, HbA1c 11.5 - per patient she is allergic to Lantus, can only tolerate insulin Levemir - requested patient to bring her home insulin Levemir, started on aggressive sliding scale insulin meanwhile Chronic fracture related pain in L2-L5 vertebra - po Dilaudid 4 mg t.i.d. - pregabalin , baclofen 20mg tid Goals of care: Full code, discussed for >16 minutes on 09/18/24 Plan discussed with patient Plan discussed with Dr. Hickey My Orders My Orders Orders - THAIS SAGASTUME RESIDENT Procedure Category Date Status Time * Wound Consult CONS 09/18/24 Transmitted Azithromycin Tablet PHA 09/19/24 In Process (Zithromax Tablet) 10:00 Hydromorphone Tablet PHA 09/18/24 In Process (Dilaudid Tablet) 22:00 Pregabalin Capsule PHA 09/18/24 In Process (Lyrica Capsule) 22:00 Baclofen Tablet PHA 09/18/24 In Process (Liorisal Tablet) 22:00 Complete Blood Count LAB 09/19/24 Logged 04:00 Basic Metabolic Panel LAB 09/19/24 Logged 04:00 Medroxyprogesterone PHA 09/18/24 In Process Tablet (Provera Tabl 18:21 Pregabalin Capsule PHA 09/18/24 In Process (Lyrica Capsule) 22:00 THAIS SAGASTUME RESIDENT Sep 19, 2024 06:13
[2024-09-19] MEDS ORDERED: INSULIN LANTUS (GLARGINE) 1 /0.01ml (100units/ml) SC SCH (07:00)
[2024-09-19 07:18] LABS: Basophils # (auto) 0.1 10 ^3/uL (0-0.2); Eosinophils # (auto) 0 10 ^3/uL (0-0.8); Eosinophils % (auto) 0.2 % (0.0-7.0); Monocytes # (auto) 1.5 10 ^3/uL (0-1.3)
[2024-09-19 07:19] LABS: Basophils % (auto) 0.9 % (0.0-2.0); Hematocrit 42.5 % (36.0-46.0); Hemoglobin 13.1 g/dL (12.2-16.2); Lymphocytes # (auto) 2.1 10 ^3/uL (0.4-5.4); Lymphocytes % (auto) 18.9 % (10.0-50.0); Mean Corpuscular Hemoglobin 23.7 pg (28.0-32.0); Mean Corpuscular Hgb Conc. 30.8 g/dL (32.0-36.0); Mean Corpuscular Volume 77.1 fL (80.0-100.0); Neutrophils # (auto) 7.6 10 ^3/uL (1.6-8.6); Platelet Count (auto) 222 10^3/uL (140-450); Red Blood Cells 5.51 10^6/uL (4.0-5.20); Red Cell Distribution Width 18.9 % (11.8-14.3); White Blood Cell 11.3 10^3/uL (4.4-10.8)
[2024-09-19 07:22] LABS: Anion Gap 10 (5-15); Carbon Dioxide 31 mmol/L (20-31); Potassium 3.6 mmol/L (3.5-5.1); Sodium 137 mmol/L (136-145)
[2024-09-19 07:25] LABS: Calcium 11.3 mg/dL (8.7-10.4); Chloride 96 mmol/L (98-107)
[2024-09-19 07:28] LABS: BUN/Creatinine Ratio 17.9 (10.0-20.0)
[2024-09-19 07:43] LABS: Blood Urea Nitrogen 25 mg/dL (9-23); Glucose 340 mg/dL (74-106)
[2024-09-19] MEDS: LORazepam 2MG/ML-1ML VIAL IV ONE (08:59)
[2024-09-19] MEDS ORDERED: IOHEXOL 350 MG/ML 100ML IJ ONE (09:52)
[2024-09-19] MEDS ORDERED: AZITHROMYCIN 250 MG TAB PO SCH (10:00)
[2024-09-19] MEDS ORDERED: levoFLOXacin 500MG 100 ML IV SCH (10:00)
[2024-09-19] MEDS ORDERED: AZIT-185 PO (11:00)
[2024-09-19] MEDS ORDERED: VANCOMYCIN PER PHARMACY 0 MG IV SCH (14:15)
[2024-09-19] MEDS: VANCOMYCIN 1GM/250ML KIT 250 ML IV SCH (16:39)
--- NOTE | 2024-09-19 16:57 | DVHPNRES ---
Progress Note Date Seen: Sep 19, 2024 Resident Creating Document: THAIS SAGASTUME RESIDENT Medical Necessity Reason Pt with a Central, PICC or Fol: No Subjective Review of Systems Patient is a 49-year-old female with past medical history of hypertension, dyslipidemia, type 2 diabetes, asthma, seizures, UTI causing sepsis in 2022, questionable pulmonary hypertension, who came in due to shortness of breath and cough that has been ongoing for the past 6 days. According to patient and her spouse, she usually runs hypercapnic and thought that she was having a "hypercapnic attack". Patient denies having any ill contacts or recent travel. Patient notes that she was admitted to [facility] 2 weeks ago for similar complaints and hypercapnia of 105 were she was treated for DKA. Patient also notes she has had 4 episodes of pneumonia in this year. Chest x-ray showed cardiomegaly, prominent pulmonary vasculature and interstitial opacities . Past surgical history: , tubal ligation, carpal tunnel tendon release Home medications: Albuterol, baclofen, buspirone, Dilaudid, lurasidone, methyl naltrexone patch? , nystatin, pregabalin, ropinirole, metolazone, Bumex, insulin Levemir 80 units b.i.d., insulin Humulin Past Hospitalization: 2 weeks ago at [facility] for DKA Social & Personal history: Patient lives with her . Quit smoking in 2011, prior to that was smoking half a pack of cigarettes per day for 13 years. Drinks alcohol occasionally, last drink 2 weeks ago. Uses marijuana occasionally, last usage was 3 months ago. Denies using any other drugs. Allergies: Ciprofloxacin, metformin, penicillin, insulin glargine, insulin Lantus, OxyContin, NSAIDs Patient seen and examined at bedside. Patient is alert and oriented to time, place person and responding to all questions. Patient reports feeling better this morning, however, blood glucose remains elevated. Patient continues to eat food from outside including but not limited to [employer]. Patient and were counseled extensively about increased glycemic content of process foods and fast foods. Objective vital signs Vital Sign Date Time Temp Pulse Resp B/P (MAP) Pulse Ox O2 Delivery O2 Flow Rate FiO2 09/19/24 13:00 98.8 85 20 157/91 (113) 100 98.8 09/19/24 12:06 Nasal Cannula* 2 28 Total Intake and Output 09/18/24 09/18/24 09/19/24 15:00 23:00 07:00 Intake Total 350 ml 1200 ml Output Total 1000 ml Balance 350 ml 200 ml medications Current Medications Medications Dose Ordered Sig/Prashanth Route Start Time Stop Time Status Last Admin Dose Admin Docusate Sodium 100 mg BIDPRN PRN PO 09/17/24 12:30 Acetaminophen 650 mg Q6HP PRN PO 09/17/24 12:30 09/18/24 06:09 650 MG Ipratropium [place] 0.5 mg Q6HWA NEB 09/17/24 18:00 09/19/24 12:06 0.5 MG Hydralazine HCl 10 mg Q6HP PRN IV 09/17/24 18:00 09/19/24 00:41 10 MG Prednisone 40 mg DAILY PO 09/18/24 11:00 09/19/24 09:00 40 MG Azithromycin 250 mg DAILY PO 09/19/24 10:00 Hold Hydromorphone HCl 4 mg TIDP PRN PO 09/18/24 22:00 09/19/24 15:53 4 MG Patient Own Medication 80 unit BID SC 09/18/24 22:00 09/19/24 09:05 80 UNIT Enoxaparin Sodium 150 mg Q12HR SC 09/18/24 22:00 Diagnostic Test (Pha) 1 strip IQ4HR 09/18/24 16:00 09/19/24 16:26 1 STRIP Insulin Human Regular IQ4HR SC 09/18/24 16:00 09/19/24 16:32 20 UNITS Dextrose 50 ml UD PRN IV 09/18/24 16:00 Pregabalin 150 mg TID PO 09/18/24 22:00 09/19/24 14:41 150 MG Baclofen 20 mg Q8HR PO 09/18/24 22:00 09/19/24 14:42 20 MG Medroxyprogesterone Acetate 10 mg DAILY PO 09/18/24 18:21 09/19/24 09:04 10 MG Pregabalin 50 mg TID PO 09/18/24 22:00 09/19/24 14:42 50 MG Diphenhydramine HCl 25 mg Q6HP PRN PO 09/18/24 18:30 09/19/24 09:01 25 MG Guaifenesin/ Dextromethorphan 10 ml Q4HP PRN PO 09/18/24 18:45 09/19/24 08:59 10 ML Vancomycin HCl 0 ml @ 0 mls/hr UD IV 09/19/24 14:15 UNV Vancomycin HCl 250 ml @ 250 mls/hr Q1H IV 09/19/24 16:30 09/19/24 18:29 09/19/24 16:39 250 MLS/HR Examination General Appearance: Cooperative. Well developed. Overweight/obese. In moderate distress Head Exam: Normal inspection Neck Exam: Normal inspection. Non-tender. Normal alignment Pulmonary/Respiratory: Chest non-tender. Decreased bilateral breath sounds, no crackles, no wheezing. Cardiovascular/Chest: Regular rate and rhythm. No murmurs. No JVD. Peripheral Pulses: 2+ Radial (R). 2+ Radial (L). 2+ Pedal (R). 2+ Pedal (L) Abdominal Exam: Normal bowel sounds. Soft. normal abdomen, no visible veins, Nontender. No hepatospenomegaly. No masses Lower extremities: +1 lower extremity edema Neuro/Mental Status: A&O x4. Coherent. Thoughts/Psych: Normal thought pattern. Appropriate mood and affect. Good judgement and insight Skin Exam: Normal inspection. Normal color. Warm. Dry laboratory and microbiology Laboratory Tests 09/19/24 06:52 Test 09/19/24 06:52 Range/Units Serum Glucose 340 H 74-106 mg/dL Microbiology Date/Time Source Procedure Growth Status 09/18/24 22:33 Sputum Gram Stain - Final Resulted 09/18/24 22:33 Sputum Respiratory Culture - Preliminary Resulted 09/18/24 21:00 Voided Urine Urine Culture - Preliminary Resulted 09/18/24 11:30 Blood Blood Culture - Preliminary Resulted Labs and/or images reviewed: Labs reviewed by me, Image(s) reviewed by me Problem List/Assessment/Plan Problem List/Assessment/Plan Acute on chronic hypoxic/hypercapnic respiratory failure Questionable asthma exacerbation Obesity hypoventilation syndrome interstitial pulmonary edema ?Right-sided heart failure can not be ruled out Lactic acidosis - CXR: Cardiomegaly, prominence of the pulmonary vasculature and interstitial opacities, findings may be seen with pulmonary vascular congestion/interstitial pulmonary edema in the appropriate clinical setting. - extremity venous study: No right or left lower extremity DVT - pending CT PA, patient denied therapeutic dose Lovenox - azithromycin 500 mg p.o. today, 250 mg p.o. daily for 4 days - albuterol med nebs , ipratropium med nebs - prednisone 40 mg p.o. - consulted pulmonology Bacteremia, currently without sepsis/SIRS - blood culture grew Gram-positive cocci in clusters - IV vancomycin per pharmacy XU likely hemodynamically mediated/VMN - IV NS, 1 bag given - we will continue to monitor Type 2 diabetes, uncontrolled, HbA1c 11.5 severe hyperglycemia without DKA/HHS - insulin Levemir 80 units b.i.d. - aggressive sliding scale insulin Chronic fracture related pain in L2-L5 vertebra - po Dilaudid 4 mg t.i.d. - pregabalin , baclofen 20mg tid Goals of care: Full code, discussed for >16 minutes on 09/18/24 Plan discussed with patient Plan discussed with Dr. Reyna Plan discussed with: Patient, Spouse, Other (RN) My Orders My Orders Orders - THAIS SAGASTUME RESIDENT Procedure Category Date Status Time Pregabalin Capsule PHA 09/18/24 In Process (Lyrica Capsule) 22:00 Baclofen Tablet PHA 09/18/24 In Process (Liorisal Tablet) 22:00 Medroxyprogesterone PHA 09/18/24 In Process Tablet (Provera Tabl 18:21 Pregabalin Capsule PHA 09/18/24 In Process (Lyrica Capsule) 22:00 Incentive Spirometry ORDERS 09/19/24 Transmitted 06:12 Vancomycin Per PHA 09/19/24 Logged Pharmacy 14:15 Date of Service: Sep 19, 2024 Billing Provider: SONYA REYNA MD Common Visit Codes: [id number] INP/OBS CARE(HIGH) Coding Comment Comment acute on chronic hypoxic hypercapnic respiratory failure IDDM uncontrolled with hyperglycemia bacteremia w/o sirs/sepsis morbid obesity CARIDAD OHS PH type 3? asthma? illness anxiety miltiple allergies chronic pain o2 supp maintain >88 albuterol ipatropium bipap at night basal bolus insulin + ISS fs x4 resume home meds vanc pain management pulm consult for PH GPC in 2 cultures, follow CS TTE/SEYMOUR THAIS SAGASTUME Sep 19, 2024 16:57 SONYA REYNA MD Sep 19, 2024 17:51
[2024-09-19 20:40] LABS: Lactic Acid w/Reflex 3.1 mmol/L (0.4-2.0)
[2024-09-19] MEDS: InsuLIN REG 1unit/0.01ml Soln (100units/ml) IV ONE (20:42)
--- NOTE | 2024-09-19 20:54 | DVHPN2 ---
Progress Note - Dictate Date Seen: Sep 19, 2024 Medical Necessity Reason Pt with a Central, PICC or Fol: No Subjective Patient seen and examined at bedside. Remains on supplemental oxygen Overnight events reviewed. vital signs Vital Sign Date Time Temp Pulse Resp B/P (MAP) Pulse Ox O2 Delivery O2 Flow Rate FiO2 09/19/24 18:11 86 18 100 09/19/24 18:04 Nasal Cannula 2.0 09/19/24 18:04 28 09/19/24 17:00 97.8 179/54 (95) 97.8 Total Intake and Output 09/18/24 09/18/24 09/19/24 15:00 23:00 07:00 Intake Total 350 ml 1200 ml Output Total 1000 ml Balance 350 ml 200 ml medications Current Medications Medications Dose Ordered Sig/Prashanth Route Start Time Stop Time Status Last Admin Dose Admin Docusate Sodium 100 mg BIDPRN PRN PO 09/17/24 12:30 Acetaminophen 650 mg Q6HP PRN PO 09/17/24 12:30 09/18/24 06:09 650 MG Ipratropium [place] 0.5 mg Q6HWA NEB 09/17/24 18:00 09/19/24 18:04 0.5 MG Hydralazine HCl 10 mg Q6HP PRN IV 09/17/24 18:00 09/19/24 00:41 10 MG Prednisone 40 mg DAILY PO 09/18/24 11:00 09/19/24 09:00 40 MG Azithromycin 250 mg DAILY PO 09/19/24 10:00 Hold Hydromorphone HCl 4 mg TIDP PRN PO 09/18/24 22:00 09/19/24 15:53 4 MG Patient Own Medication 80 unit BID SC 09/18/24 22:00 09/19/24 09:05 80 UNIT Enoxaparin Sodium 150 mg Q12HR SC 09/18/24 22:00 Diagnostic Test (Pha) 1 strip IQ4HR 09/18/24 16:00 09/19/24 20:42 1 STRIP Insulin Human Regular IQ4HR SC 09/18/24 16:00 09/19/24 20:42 20 UNITS Dextrose 50 ml UD PRN IV 09/18/24 16:00 Pregabalin 150 mg TID PO 09/18/24 22:00 09/19/24 14:41 150 MG Baclofen 20 mg Q8HR PO 09/18/24 22:00 09/19/24 14:42 20 MG Medroxyprogesterone Acetate 10 mg DAILY PO 09/18/24 18:21 09/19/24 09:04 10 MG Pregabalin 50 mg TID PO 09/18/24 22:00 09/19/24 14:42 50 MG Diphenhydramine HCl 25 mg Q6HP PRN PO 09/18/24 18:30 09/19/24 09:01 25 MG Guaifenesin/ Dextromethorphan 10 ml Q4HP PRN PO 09/18/24 18:45 09/19/24 08:59 10 ML Vancomycin HCl 0 ml @ 0 mls/hr UD IV 09/19/24 14:15 Vancomycin HCl 250 ml @ 200 mls/hr Q12H IV 09/20/24 04:00 Insulin Human Regular 20 units AC SC 09/20/24 07:00 objective Gen.: Patient lying in bed in no apparent distress. On supplemental oxygen. Head: Normocephalic, atraumatic. Eyes: EOMI/PERRLA. Ears: Normal hearing. Normal anatomy. Neck/trachea: Trachea midline, supple. Nose: Normal external anatomy. Mouth: Moist mucous membranes. Chest: Decreased air entry bilaterally. No wheezing or rhonchi. Cardiovascular: Positive S1, positive S2. Regular rate and rhythm. Abdomen: Positive bowel sounds in all 4 quadrants. Soft, non-tender, non- distended. : Deferred. Rectal: Deferred. Skin: Warm, dry. Intact. Extremities: 2+ radial pulses bilaterally. No lower extremity edema. Neuro: Awake, alert, oriented x3. No gross motor or sensory deficits. Cranial nerves II through XII intact. Gait not assessed. laboratory and microbiology Laboratory Tests 09/19/24 06:52 Test 09/19/24 06:52 Range/Units Serum Glucose 340 H 74-106 mg/dL Assessment/Plan Impression: Acute on chronic hypoxic respiratory failure Acute on chronic hypercarbic respiratory failure Asthma exacerbation Atelectasis Morbid obesity Interstitial pulmonary edema Lactic acidosis Hyperglycemia Events: Remains on supplemental oxygen, 2 LPM NC Taper O2 as tolerated Continue bronchodilators/Mucinex Continue antibiotics Incentive spirometry CT chest pending. Labs and imaging reviewed. Rest of plan as noted below. Plan: Supplemental oxygen Titrate to keep O2 sats above 92%. Continue bronchodilators. Mucinex q.12 hours. Benadryl. Continue antibiotics Prednisone PO. Incentive spirometry Therapeutic Lovenox Pain control Avoid oversedation Accu-Cheks, ISS. Monitor renal function. Monitor electrolytes. Supplement as necessary. Monitor ins and outs. DVT prophylaxis. Prognosis: Poor given patient's multiple co-morbidities. Rest of plan per hospitalist and other consultants. Thank you, Dr. Hickey, for allowing me to participate in this patient's care. Further recommendations will depend on the patient's clinical course. Please do not hesitate to contact me if you have any questions or concerns. This medical document was created using an electronic medical record system with [email or web address] computerized dictation system. Although these documentations are being carefully reviewed, there may still be some phonetic and typographical changes. The errors are purely typographical, due to imperfection on the software program, and do not reflect any compromise in the patient's medical care Plan discussed with: Patient, Other (JUSTINE Kerns) CAMILLA BRITTON MD Sep 19, 2024 20:54
--- NOTE | 2024-09-19 22:13 | PRN ---
Misceleneous Note Note Note patient was getting 80 units levemir BID and insulin pump with base rate of 4units per hour. TDD of 256 units with meal correction. will advise patient to bring insulin pump. due to the extremely high insulin dosing, will be using modified dosing as patient persistently hyperglycemic with inpatient dosing even with agresive scale. low treshold to start insulin pump SONYA REYNA MD Sep 19, 2024 22:13
[2024-09-19] MEDS: INSULIN LISPRO (HUMAN) 100 UNITS/ML ML SC ONE (23:15)
[2024-09-19] MEDS: POTASSIUM EFFERVESENT TAB 25 MEQ PO ONE (23:19)
[2024-09-20] VITALS (18 sets, daily range): BP systolic 132–173; BP diastolic 73–84; PULSE 73–119; RESP 16–24; TEMP 98–99; O2SAT 93–98
[2024-09-20] MEDS: InsuLIN REG 1unit/0.01ml Soln (100units/ml) SC SCH ×2 (00:21→12:00)
[2024-09-20] MEDS: VANCOMYCIN 1.25GM/250ML 250 ML IV SCH (04:12)
[2024-09-20] MEDS: VANCOMYCIN 1.25GM/250ML 250 ML IV ONE (04:14)
[2024-09-20 06:30] LABS: Basophils # (auto) 0.1 10 ^3/uL (0-0.2); Basophils % (auto) 0.6 % (0.0-2.0); Eosinophils # (auto) 0.1 10 ^3/uL (0-0.8); Eosinophils % (auto) 1.1 % (0.0-7.0); Hemoglobin 11.1 g/dL (12.2-16.2); Lymphocytes # (auto) 2.8 10 ^3/uL (0.4-5.4); Mean Corpuscular Hemoglobin 23.9 pg (28.0-32.0); Mean Corpuscular Hgb Conc. 30.9 g/dL (32.0-36.0); Mean Corpuscular Volume 77.2 fL (80.0-100.0); Monocytes # (auto) 1.4 10 ^3/uL (0-1.3); Monocytes % (auto) 12.9 % (0.0-12.0); Neutrophils # (auto) 6.8 10 ^3/uL (1.6-8.6); Neutrophils % (auto) 60.4 % (37.0-80.0); Nucleated Red Blood Cells % 0.1 %; Platelet Count (auto) 225 10^3/uL (140-450); Red Blood Cells 4.66 10^6/uL (4.0-5.20); Red Cell Distribution Width 17.9 % (11.8-14.3); White Blood Cell 11.2 10^3/uL (4.4-10.8)
[2024-09-20 06:44] LABS: Chloride 99 mmol/L (98-107); Potassium 4.1 mmol/L (3.5-5.1); Sodium 139 mmol/L (136-145)
[2024-09-20 06:45] LABS: Anion Gap 6 (5-15)
[2024-09-20 06:50] LABS: BUN/Creatinine Ratio 29.6 (10.0-20.0)
[2024-09-20 06:53] LABS: Carbon Dioxide 34 mmol/L (20-31)
[2024-09-20 06:54] LABS: Blood Urea Nitrogen 32 mg/dL (9-23); Calcium 10.5 mg/dL (8.7-10.4); Glucose 200 mg/dL (74-106)
[2024-09-20] MEDS ORDERED: InsuLIN REG 1unit/0.01ml Soln (100units/ml) SC SCH (07:00)
[2024-09-20] MEDS ORDERED: DEXTROSE (50%) 50ML SYRG IV PRN (08:30)
[2024-09-20] MEDS: ACCU-CHEK COMFORT CURVE STRIP VI SCH (12:00)
[2024-09-20] MEDS: medroxyPROGESTERone ACETATE 5 MG TAB PO SCH (14:49)
[2024-09-20] MEDS: NYSTATIN (MOUTH-THROAT) 500,000 UNITS/5 ML SUSP MT SCH (17:56)
--- NOTE | 2024-09-20 18:54 | DVHPNRES ---
Progress Note Date Seen: Sep 20, 2024 Resident Creating Document: THAIS SAGASTUME RESIDENT Medical Necessity Reason Pt with a Central, PICC or Fol: No Subjective Review of Systems Patient is a 49-year-old female with past medical history of hypertension, dyslipidemia, type 2 diabetes, asthma, seizures, UTI causing sepsis in 2022, questionable pulmonary hypertension, who came in due to shortness of breath and cough that has been ongoing for the past 6 days. According to patient and her spouse, she usually runs hypercapnic and thought that she was having a "hypercapnic attack". Patient denies having any ill contacts or recent travel. Patient notes that she was admitted to [facility] 2 weeks ago for similar complaints and hypercapnia of 105 were she was treated for DKA. Patient also notes she has had 4 episodes of pneumonia in this year. Chest x-ray showed cardiomegaly, prominent pulmonary vasculature and interstitial opacities . Past surgical history: , tubal ligation, carpal tunnel tendon release Home medications: Albuterol, baclofen, buspirone, Dilaudid, lurasidone, methyl naltrexone patch? , nystatin, pregabalin, ropinirole, metolazone, Bumex, insulin Levemir 80 units b.i.d., insulin Humulin Past Hospitalization: 2 weeks ago at [facility] for DKA Social & Personal history: Patient lives with her . Quit smoking in 2011, prior to that was smoking half a pack of cigarettes per day for 13 years. Drinks alcohol occasionally, last drink 2 weeks ago. Uses marijuana occasionally, last usage was 3 months ago. Denies using any other drugs. Allergies: Ciprofloxacin, metformin, penicillin, insulin glargine, insulin Lantus, OxyContin, NSAIDs Patient seen and examined at bedside. Patient is alert and oriented to time, place person and responding to all questions. Patient reports feeling better this morning, however, blood glucose remains elevated. Patient continues to eat food from outside including but not limited to [employer]. Patient and were counseled extensively about increased glycemic content of process foods and fast foods. Objective vital signs Vital Sign Date Time Temp Pulse Resp B/P (MAP) Pulse Ox O2 Delivery O2 Flow Rate FiO2 09/20/24 18:12 85 20 98 09/20/24 18:07 Nasal Cannula* 3 32 09/20/24 16:37 98.6 152/83 (106) 98.6 Total Intake and Output 09/19/24 09/19/24 09/20/24 15:00 23:00 07:00 Intake Total 720 ml 3699 ml 490 ml Output Total 1400 ml 500 ml Balance 720 ml 2299 ml -10 ml medications Current Medications Medications Dose Ordered Sig/Prashanth Route Start Time Stop Time Status Last Admin Dose Admin Docusate Sodium 100 mg BIDPRN PRN PO 09/17/24 12:30 Acetaminophen 650 mg Q6HP PRN PO 09/17/24 12:30 09/18/24 06:09 650 MG Ipratropium Arnett 0.5 mg Q6HWA NEB 09/17/24 18:00 09/20/24 18:03 0.5 MG Hydralazine HCl 10 mg Q6HP PRN IV 09/17/24 18:00 09/19/24 00:41 10 MG Prednisone 40 mg DAILY PO 09/18/24 11:00 09/20/24 11:29 40 MG Azithromycin 250 mg DAILY PO 09/19/24 10:00 Hold Hydromorphone HCl 4 mg TIDP PRN PO 09/18/24 22:00 09/20/24 17:56 4 MG Patient Own Medication 80 unit BID SC 09/18/24 22:00 09/20/24 11:29 80 UNIT Enoxaparin Sodium 150 mg Q12HR SC 09/18/24 22:00 Pregabalin 150 mg TID PO 09/18/24 22:00 09/20/24 15:01 150 MG Baclofen 20 mg Q8HR PO 09/18/24 22:00 09/20/24 15:01 20 MG Pregabalin 50 mg TID PO 09/18/24 22:00 09/20/24 15:00 50 MG Diphenhydramine HCl 25 mg Q6HP PRN PO 09/18/24 18:30 09/19/24 21:01 25 MG Guaifenesin/ Dextromethorphan 10 ml Q4HP PRN PO 09/18/24 18:45 09/19/24 21:02 10 ML Vancomycin HCl 0 ml @ 0 mls/hr UD IV 09/19/24 14:15 Vancomycin HCl 250 ml @ 200 mls/hr Q12H IV 09/20/24 04:00 09/20/24 16:10 200 MLS/HR Diagnostic Test (Pha) 1 strip IQ4HR 09/20/24 12:00 09/20/24 15:31 1 STRIP Insulin Human Regular IQ4HR SC 09/20/24 12:00 09/20/24 15:40 20 UNITS Dextrose 50 ml UD PRN IV 09/20/24 08:30 Medroxyprogesterone Acetate 20 mg TID PO 09/20/24 14:00 09/20/24 15:01 20 MG Nystatin 5 ml QID MT 09/20/24 18:00 09/20/24 17:56 5 ML Examination General Appearance: Cooperative. Well developed. Overweight/obese. In moderate distress Head Exam: Normal inspection Neck Exam: Normal inspection. Non-tender. Normal alignment Pulmonary/Respiratory: Chest non-tender. Decreased bilateral breath sounds, no crackles, no wheezing. Cardiovascular/Chest: Regular rate and rhythm. No murmurs. No JVD. Peripheral Pulses: 2+ Radial (R). 2+ Radial (L). 2+ Pedal (R). 2+ Pedal (L) Abdominal Exam: Normal bowel sounds. Soft. normal abdomen, no visible veins, Nontender. No hepatospenomegaly. No masses Lower extremities: +1 lower extremity edema Neuro/Mental Status: A&O x4. Coherent. Thoughts/Psych: Normal thought pattern. Appropriate mood and affect. Good judgement and insight Skin Exam: Normal inspection. Normal color. Warm. Dry laboratory and microbiology Laboratory Tests 09/20/24 06:05 Test 09/20/24 06:05 Range/Units Serum Glucose 200 H 74-106 mg/dL Microbiology Date/Time Source Procedure Growth Status 09/18/24 22:33 Sputum Gram Stain - Final Resulted 09/18/24 22:33 Sputum Respiratory Culture - Preliminary Resulted 09/18/24 21:00 Voided Urine Urine Culture - Final Complete 09/18/24 17:00 Nose MRSA Screen - Final Complete 09/18/24 11:30 Blood Blood Culture - Preliminary Resulted Labs and/or images reviewed: Labs reviewed by me, Image(s) reviewed by me Problem List/Assessment/Plan Problem List/Assessment/Plan Acute on chronic hypoxic/hypercapnic respiratory failure Questionable asthma exacerbation Obesity hypoventilation syndrome Obstructive sleep apnea interstitial pulmonary edema ?Right-sided heart failure can not be ruled out Possible pulmonary hypertension Lactic acidosis - CXR: Cardiomegaly, prominence of the pulmonary vasculature and interstitial opacities, findings may be seen with pulmonary vascular congestion/interstitial pulmonary edema in the appropriate clinical setting. - extremity venous study: No right or left lower extremity DVT - pending CT PA, patient denied therapeutic dose Lovenox - azithromycin 500 mg p.o. today, 250 mg p.o. daily for 4 days - albuterol med nebs , ipratropium med nebs - prednisone 40 mg p.o. - consulted pulmonology Bacteremia, currently without sepsis/SIRS - blood culture grew Gram-positive cocci in clusters - IV vancomycin per pharmacy - ordered repeat blood cultures XU likely hemodynamically mediated/VMN - IV NS, 1 bag given - we will continue to monitor Type 2 diabetes, uncontrolled, HbA1c 11.5 severe hyperglycemia without DKA/HHS - insulin Levemir 80 units b.i.d. - aggressive sliding scale insulin Chronic fracture related pain in L2-L5 vertebra - po Dilaudid 4 mg t.i.d. - pregabalin , baclofen 20mg tid Oral candidiasis - nystatin swish and swallow Morbid obesity - counseled patient extensively on healthy eating habits and physical activity Goals of care: Full code, discussed for >16 minutes on 09/18/24 Plan discussed with patient Plan discussed with Dr. Reyna Plan discussed with: Patient, Spouse, Other (RN) My Orders My Orders Orders - THAIS SAGASTUME RESIDENT Procedure Category Date Status Time Consistent DIET 09/20/24 Transmitted Carb(Ccho)Diabetes Lunch Medroxyprogesterone PHA 09/20/24 In Process Tablet (Provera Tabl 14:00 Blood Culture LAURENCE 09/20/24 Logged 11:37 Nystatin PHA 09/20/24 In Process (Mouth-Throat) 18:00 Date of Service: Sep 20, 2024 Billing Provider: SONYA REYNA MD Common Visit Codes: [id number] INP/OBS CARE(HIGH) Coding Comment Comment Attending Attestation I saw and evaluated the patient. I reviewed the residents note and agree with findings and plan as documented in the residents note except as documented below. acute on chronic hypoxic hypercapnic respiratory failure IDDM uncontrolled with hyperglycemia bacteremia staph epi w/o sirs/sepsis morbid obesity CARIDAD OHS PH type 3? asthma? illness anxiety miltiple allergies chronic pain o2 supp maintain >88 albuterol ipatropium bipap at night basal bolus insulin + ISS fs x4 resume home meds pain management pulm consult appreciated c/w [facility] service for home abx THAIS SAGASTUME RESIDENT Sep 20, 2024 18:54 SONYA REYNA MD Sep 21, 2024 08:34
--- NOTE | 2024-09-20 22:42 | DVHPN2 ---
Progress Note - Dictate Date Seen: Sep 20, 2024 Medical Necessity Reason Pt with a Central, PICC or Fol: No Subjective Patient seen and examined at bedside. Remains on supplemental oxygen Overnight events reviewed. vital signs Vital Sign Date Time Temp Pulse Resp B/P (MAP) Pulse Ox O2 Delivery O2 Flow Rate FiO2 09/20/24 22:23 89 98 Facial BiPAP Mask 30 09/20/24 22:03 97.7 09/20/24 18:12 20 09/20/24 18:07 3 09/20/24 16:37 152/83 (106) Total Intake and Output 09/19/24 09/19/24 09/20/24 15:00 23:00 07:00 Intake Total 720 ml 3699 ml 490 ml Output Total 1400 ml 500 ml Balance 720 ml 2299 ml -10 ml medications Current Medications Medications Dose Ordered Sig/Prashanth Route Start Time Stop Time Status Last Admin Dose Admin Docusate Sodium 100 mg BIDPRN PRN PO 09/17/24 12:30 Acetaminophen 650 mg Q6HP PRN PO 09/17/24 12:30 09/20/24 22:03 650 MG Ipratropium [place] 0.5 mg Q6HWA NEB 09/17/24 18:00 09/20/24 18:03 0.5 MG Hydralazine HCl 10 mg Q6HP PRN IV 09/17/24 18:00 09/19/24 00:41 10 MG Prednisone 40 mg DAILY PO 09/18/24 11:00 09/20/24 11:29 40 MG Azithromycin 250 mg DAILY PO 09/19/24 10:00 Hold Hydromorphone HCl 4 mg TIDP PRN PO 09/18/24 22:00 09/20/24 17:56 4 MG Patient Own Medication 80 unit BID SC 09/18/24 22:00 09/20/24 11:29 80 UNIT Enoxaparin Sodium 150 mg Q12HR SC 09/18/24 22:00 Pregabalin 150 mg TID PO 09/18/24 22:00 09/20/24 22:01 150 MG Baclofen 20 mg Q8HR PO 09/18/24 22:00 09/20/24 22:02 20 MG Pregabalin 50 mg TID PO 09/18/24 22:00 09/20/24 22:02 50 MG Diphenhydramine HCl 25 mg Q6HP PRN PO 09/18/24 18:30 09/20/24 22:02 25 MG Guaifenesin/ Dextromethorphan 10 ml Q4HP PRN PO 09/18/24 18:45 09/20/24 22:01 10 ML Vancomycin HCl 0 ml @ 0 mls/hr UD IV 09/19/24 14:15 Vancomycin HCl 250 ml @ 200 mls/hr Q12H IV 09/20/24 04:00 09/20/24 16:10 200 MLS/HR Diagnostic Test (Pha) 1 strip IQ4HR 09/20/24 12:00 09/20/24 20:00 1 STRIP Insulin Human Regular IQ4HR SC 09/20/24 12:00 09/20/24 15:40 20 UNITS Dextrose 50 ml UD PRN IV 09/20/24 08:30 Medroxyprogesterone Acetate 20 mg TID PO 09/20/24 14:00 09/20/24 22:28 20 MG Nystatin 5 ml QID MT 09/20/24 18:00 09/20/24 22:01 5 ML objective Gen.: Patient lying in bed in no apparent distress. On supplemental oxygen. Head: Normocephalic, atraumatic. Eyes: EOMI/PERRLA. Ears: Normal hearing. Normal anatomy. Neck/trachea: Trachea midline, supple. Nose: Normal external anatomy. Mouth: Moist mucous membranes. Chest: Decreased air entry bilaterally. No wheezing or rhonchi. Cardiovascular: Positive S1, positive S2. Regular rate and rhythm. Abdomen: Positive bowel sounds in all 4 quadrants. Soft, non-tender, non- distended. : Deferred. Rectal: Deferred. Skin: Warm, dry. Intact. Extremities: 2+ radial pulses bilaterally. No lower extremity edema. Neuro: Awake, alert, oriented x3. No gross motor or sensory deficits. Cranial nerves II through XII intact. Gait not assessed. laboratory and microbiology Laboratory Tests 09/20/24 06:05 Test 09/20/24 06:05 Range/Units Serum Glucose 200 H 74-106 mg/dL Assessment/Plan Impression: Acute on chronic hypoxic respiratory failure Acute on chronic hypercarbic respiratory failure Asthma exacerbation Atelectasis Morbid obesity Interstitial pulmonary edema Lactic acidosis Hyperglycemia Events: Remains on supplemental oxygen, 2 LPM NC Taper O2 as tolerated PRN NIPPV at night for CARIDAD. Continue bronchodilators Continue steroids Continue antibiotics Incentive spirometry Patient is stable for discharge from the pulmonary standpoint. Labs and imaging reviewed. Rest of plan as noted below. Plan: Supplemental oxygen Titrate to keep O2 sats above 92%. PRN NIPPV at night for CARIDAD. Continue bronchodilators. Benadryl. Continue antibiotics Prednisone PO. Incentive spirometry Therapeutic Lovenox Pain control Avoid oversedation Accu-Cheks, ISS. Monitor renal function. Monitor electrolytes. Supplement as necessary. Monitor ins and outs. DVT prophylaxis. Prognosis: Poor given patient's multiple co-morbidities. Rest of plan per hospitalist and other consultants. Thank you, Dr. Hickey, for allowing me to participate in this patient's care. Further recommendations will depend on the patient's clinical course. Please do not hesitate to contact me if you have any questions or concerns. This medical document was created using an electronic medical record system with [employer] computerized dictation system. Although these documentations are being carefully reviewed, there may still be some phonetic and typographical changes. The errors are purely typographical, due to imperfection on the software program, and do not reflect any compromise in the patient's medical care Plan discussed with: Patient, Other (JUSTINE Alcantar) CAMILLA BRITTON MD Sep 20, 2024 22:42
[2024-09-21] VITALS (15 sets, daily range): BP systolic 139–156; BP diastolic 67–111; PULSE 76–119; RESP 16–25; TEMP 97.8–99.1; O2SAT 91–100
[2024-09-21 03:19] LABS: Chloride 101 mmol/L (98-107); Potassium 4.4 mmol/L (3.5-5.1); Sodium 136 mmol/L (136-145)
[2024-09-21 03:20] LABS: Anion Gap 6 (5-15); Calcium 10.1 mg/dL (8.7-10.4); Carbon Dioxide 29 mmol/L (20-31)
[2024-09-21 03:21] LABS: Eosinophils # (auto) 0.1 10 ^3/uL (0-0.8); Hemoglobin 11.7 g/dL (12.2-16.2)
[2024-09-21 03:23] LABS: Basophils # (auto) 0.2 10 ^3/uL (0-0.2); Basophils % (auto) 1.6 % (0.0-2.0); Eosinophils % (auto) 1.3 % (0.0-7.0); Hematocrit 38.7 % (36.0-46.0); Lymphocytes # (auto) 1.8 10 ^3/uL (0.4-5.4); Lymphocytes % (auto) 15.7 % (10.0-50.0); Mean Corpuscular Hemoglobin 23.1 pg (28.0-32.0); Mean Corpuscular Hgb Conc. 30.1 g/dL (32.0-36.0); Mean Corpuscular Volume 76.7 fL (80.0-100.0); Monocytes % (auto) 9.1 % (0.0-12.0); Neutrophils # (auto) 8.3 10 ^3/uL (1.6-8.6); Neutrophils % (auto) 72.3 % (37.0-80.0); Platelet Count (auto) 216 10^3/uL (140-450); Red Blood Cells 5.05 10^6/uL (4.0-5.20); Red Cell Distribution Width 18.5 % (11.8-14.3); White Blood Cell 11.5 10^3/uL (4.4-10.8)
[2024-09-21 03:25] LABS: BUN/Creatinine Ratio 28.3 (10.0-20.0)
[2024-09-21 03:30] LABS: Blood Urea Nitrogen 30 mg/dL (9-23); Glucose 300 mg/dL (74-106)
[2024-09-21] MEDS: PANTOPRAZOLE 40 MG TAB PO ONE (14:28)
[2024-09-21] MEDS: VANCOMYCIN 1.25GM/250ML 250 ML IV SCH (14:30)
--- NOTE | 2024-09-21 15:26 | DVHPNRES ---
Progress Note Date Seen: Sep 21, 2024 Resident Creating Document: THAIS SAGASTUME RESIDENT Medical Necessity Reason Pt with a Central, PICC or Fol: No Subjective Review of Systems Patient is a 49-year-old female with past medical history of hypertension, dyslipidemia, type 2 diabetes, asthma, seizures, UTI causing sepsis in 2022, questionable pulmonary hypertension, who came in due to shortness of breath and cough that has been ongoing for the past 6 days. According to patient and her spouse, she usually runs hypercapnic and thought that she was having a "hypercapnic attack". Patient denies having any ill contacts or recent travel. Patient notes that she was admitted to [facility] 2 weeks ago for similar complaints and hypercapnia of 105 were she was treated for DKA. Patient also notes she has had 4 episodes of pneumonia in this year. Chest x-ray showed cardiomegaly, prominent pulmonary vasculature and interstitial opacities . Past surgical history: , tubal ligation, carpal tunnel tendon release Home medications: Albuterol, baclofen, buspirone, Dilaudid, lurasidone, methyl naltrexone patch? , nystatin, pregabalin, ropinirole, metolazone, Bumex, insulin Levemir 80 units b.i.d., insulin Humulin Past Hospitalization: 2 weeks ago at [facility] for DKA Social & Personal history: Patient lives with her . Quit smoking in 2011, prior to that was smoking half a pack of cigarettes per day for 13 years. Drinks alcohol occasionally, last drink 2 weeks ago. Uses marijuana occasionally, last usage was 3 months ago. Denies using any other drugs. Allergies: Ciprofloxacin, metformin, penicillin, insulin glargine, insulin Lantus, OxyContin, NSAIDs Patient seen and examined at bedside. Patient is alert and oriented to time, place person and responding to all questions. Patient reports feeling better this morning, however, blood glucose remains elevated. Patient continues to eat food from outside including but not limited to [employer]. Patient and were counseled extensively about increased glycemic content of process foods and fast foods. Objective vital signs Vital Sign Date Time Temp Pulse Resp B/P (MAP) Pulse Ox O2 Delivery O2 Flow Rate FiO2 09/21/24 12:30 98.9 86 20 139/74 (95) 95 98.9 09/21/24 10:53 Nasal Cannula* 2 28 Total Intake and Output 09/20/24 09/20/24 09/21/24 15:00 23:00 07:00 Intake Total 1755 ml 670 ml Output Total 1700 ml Balance 55 ml 670 ml medications Current Medications Medications Dose Ordered Sig/Prashanth Route Start Time Stop Time Status Last Admin Dose Admin Docusate Sodium 100 mg BIDPRN PRN PO 09/17/24 12:30 Acetaminophen 650 mg Q6HP PRN PO 09/17/24 12:30 09/20/24 22:03 650 MG Ipratropium Horton 0.5 mg Q6HWA NEB 09/17/24 18:00 09/21/24 10:53 0.5 MG Hydralazine HCl 10 mg Q6HP PRN IV 09/17/24 18:00 09/19/24 00:41 10 MG Prednisone 40 mg DAILY PO 09/18/24 11:00 09/21/24 09:38 40 MG Azithromycin 250 mg DAILY PO 09/19/24 10:00 Hold Hydromorphone HCl 4 mg TIDP PRN PO 09/18/24 22:00 09/21/24 14:29 4 MG Patient Own Medication 80 unit BID SC 09/18/24 22:00 09/21/24 09:38 80 UNIT Enoxaparin Sodium 150 mg Q12HR SC 09/18/24 22:00 Pregabalin 150 mg TID PO 09/18/24 22:00 09/21/24 13:33 150 MG Baclofen 20 mg Q8HR PO 09/18/24 22:00 09/21/24 13:33 20 MG Pregabalin 50 mg TID PO 09/18/24 22:00 09/21/24 13:33 50 MG Diphenhydramine HCl 25 mg Q6HP PRN PO 09/18/24 18:30 09/20/24 22:02 25 MG Guaifenesin/ Dextromethorphan 10 ml Q4HP PRN PO 09/18/24 18:45 09/20/24 22:01 10 ML Vancomycin HCl 0 ml @ 0 mls/hr UD IV 09/19/24 14:15 Diagnostic Test (Pha) 1 strip IQ4HR 09/20/24 12:00 09/21/24 11:56 1 STRIP Insulin Human Regular IQ4HR SC 09/20/24 12:00 09/21/24 12:51 12 UNITS Dextrose 50 ml UD PRN IV 09/20/24 08:30 Medroxyprogesterone Acetate 20 mg TID PO 09/20/24 14:00 09/21/24 15:04 20 MG Nystatin 5 ml QID MT 09/20/24 18:00 09/21/24 12:44 5 ML Vancomycin HCl 250 ml @ 200 mls/hr Q10H IV 09/21/24 14:00 09/21/24 14:30 200 MLS/HR Pantoprazole Sodium 40 mg DAILY@0600 PO 09/22/24 06:00 Examination General Appearance: Cooperative. Well developed. Overweight/obese. In moderate distress Head Exam: Normal inspection Neck Exam: Normal inspection. Non-tender. Normal alignment Pulmonary/Respiratory: Chest non-tender. Decreased bilateral breath sounds, no crackles, no wheezing. Cardiovascular/Chest: Regular rate and rhythm. No murmurs. No JVD. Peripheral Pulses: 2+ Radial (R). 2+ Radial (L). 2+ Pedal (R). 2+ Pedal (L) Abdominal Exam: Normal bowel sounds. Soft. normal abdomen, no visible veins, Nontender. No hepatospenomegaly. No masses Lower extremities: +1 lower extremity edema Neuro/Mental Status: A&O x4. Coherent. Thoughts/Psych: Normal thought pattern. Appropriate mood and affect. Good judgement and insight Skin Exam: Normal inspection. Normal color. Warm. Dry laboratory and microbiology Laboratory Tests 09/21/24 03:01 Test 09/21/24 03:01 Range/Units Serum Glucose 300 H 74-106 mg/dL Microbiology Date/Time Source Procedure Growth Status 09/18/24 22:33 Sputum Gram Stain - Final Resulted 09/18/24 22:33 Sputum Respiratory Culture - Preliminary Resulted 09/18/24 21:00 Voided Urine Urine Culture - Final Complete 09/18/24 17:00 Nose MRSA Screen - Final Complete 09/18/24 11:30 Blood Blood Culture - Final Staphylococcus epidermidis Complete Labs and/or images reviewed: Labs reviewed by me, Image(s) reviewed by me Problem List/Assessment/Plan Problem List/Assessment/Plan Acute on chronic hypoxic/hypercapnic respiratory failure Questionable asthma exacerbation Obesity hypoventilation syndrome Obstructive sleep apnea interstitial pulmonary edema ?Right-sided heart failure can not be ruled out Possible pulmonary hypertension Lactic acidosis - CXR: Cardiomegaly, prominence of the pulmonary vasculature and interstitial opacities, findings may be seen with pulmonary vascular congestion/interstitial pulmonary edema in the appropriate clinical setting. - extremity venous study: No right or left lower extremity DVT - pending CT PA, patient denied therapeutic dose Lovenox - azithromycin 500 mg p.o. today, 250 mg p.o. daily for 4 days - albuterol med nebs , ipratropium med nebs - prednisone 40 mg p.o. - consulted pulmonology Bacteremia, currently without sepsis/SIRS - blood culture grew Gram-positive cocci in clusters - IV vancomycin per pharmacy - ordered repeat blood cultures XU likely hemodynamically mediated/VMN - IV NS, 1 bag given - we will continue to monitor Type 2 diabetes, uncontrolled, HbA1c 11.5 severe hyperglycemia without DKA/HHS - insulin Levemir 80 units b.i.d. - aggressive sliding scale insulin Chronic fracture related pain in L2-L5 vertebra - po Dilaudid 4 mg t.i.d. - pregabalin , baclofen 20mg tid Oral candidiasis - nystatin swish and swallow Morbid obesity - counseled patient extensively on healthy eating habits and physical activity Goals of care: Full code, discussed for >16 minutes on 09/18/24 Plan discussed with patient Plan discussed with Dr. Reyna Plan discussed with: Patient, Spouse, Other (RN) My Orders My Orders Orders - THAIS SAGASTUME RESIDENT Procedure Category Date Status Time Nystatin PHA 09/20/24 In Process (Mouth-Throat) 18:00 Blood Glucose Q4h HINA 09/20/24 In Process 21:58 Vancomycin PHA 09/21/24 In Process 1.25gm/250ml 14:00 Vancomycin Per HINA 09/21/24 In Process Pharmacy Protoc 14:00 Basic Metabolic Panel LAB 09/22/24 Verified 04:00 Vancomycin,Trough LAB 09/22/24 Verified 09:00 Pantoprazole Tablet PHA 09/22/24 In Process (Protonix Tablet) 06:00 Date of Service: Sep 21, 2024 Billing Provider: SONYA REYNA MD Common Visit Codes: [id number] INP/OBS CARE(HIGH) Coding Comment Comment Attending Attestation I saw and evaluated the patient. I reviewed the residents note and agree with findings and plan as documented in the residents note except as documented below. acute on chronic hypoxic hypercapnic respiratory failure IDDM uncontrolled with hyperglycemia bacteremia staph epi w/o sirs/sepsis morbid obesity CARIDAD OHS PH type 3? asthma? illness anxiety miltiple allergies chronic pain o2 supp maintain >88 albuterol ipatropium bipap at night basal bolus insulin + ISS fs x4 resume home meds pain management pulm consult appreciated c/w [facility] social service for home abx THAIS SAGASTUME RESIDENT Sep 21, 2024 15:26 SONYA REYNA MD Sep 21, 2024 18:35
--- NOTE | 2024-09-21 23:05 | DVHPN2 ---
Progress Note - Dictate Date Seen: Sep 21, 2024 Medical Necessity Reason Pt with a Central, PICC or Fol: No Subjective Patient seen and examined at bedside. Remains on supplemental oxygen Overnight events reviewed. vital signs Vital Sign Date Time Temp Pulse Resp B/P (MAP) Pulse Ox O2 Delivery O2 Flow Rate FiO2 09/21/24 21:06 98.0 100 25 156/74 (101) 91 98.0 09/21/24 21:05 Facial BiPAP Mask 30 09/21/24 18:47 2 Total Intake and Output 09/20/24 09/20/24 09/21/24 15:00 23:00 07:00 Intake Total 1755 ml 670 ml Output Total 1700 ml Balance 55 ml 670 ml medications Current Medications Medications Dose Ordered Sig/Prashanth Route Start Time Stop Time Status Last Admin Dose Admin Docusate Sodium 100 mg BIDPRN PRN PO 09/17/24 12:30 Acetaminophen 650 mg Q6HP PRN PO 09/17/24 12:30 09/20/24 22:03 650 MG Ipratropium Jackson 0.5 mg Q6HWA NEB 09/17/24 18:00 09/21/24 18:47 0.5 MG Hydralazine HCl 10 mg Q6HP PRN IV 09/17/24 18:00 09/19/24 00:41 10 MG Prednisone 40 mg DAILY PO 09/18/24 11:00 09/21/24 09:38 40 MG Azithromycin 250 mg DAILY PO 09/19/24 10:00 Hold Hydromorphone HCl 4 mg TIDP PRN PO 09/18/24 22:00 09/21/24 14:29 4 MG Patient Own Medication 80 unit BID SC 09/18/24 22:00 09/21/24 22:22 80 UNIT Enoxaparin Sodium 150 mg Q12HR SC 09/18/24 22:00 09/21/24 22:14 150 MG Pregabalin 150 mg TID PO 09/18/24 22:00 09/21/24 22:13 150 MG Baclofen 20 mg Q8HR PO 09/18/24 22:00 09/21/24 22:12 20 MG Pregabalin 50 mg TID PO 09/18/24 22:00 09/21/24 22:13 50 MG Diphenhydramine HCl 25 mg Q6HP PRN PO 09/18/24 18:30 09/20/24 22:02 25 MG Guaifenesin/ Dextromethorphan 10 ml Q4HP PRN PO 09/18/24 18:45 09/21/24 19:06 10 ML Vancomycin HCl 0 ml @ 0 mls/hr UD IV 09/19/24 14:15 Diagnostic Test (Pha) 1 strip IQ4HR 09/20/24 12:00 09/21/24 20:00 1 STRIP Insulin Human Regular IQ4HR SC 09/20/24 12:00 09/21/24 22:21 20 UNITS Dextrose 50 ml UD PRN IV 09/20/24 08:30 Medroxyprogesterone Acetate 20 mg TID PO 09/20/24 14:00 09/21/24 22:14 20 MG Nystatin 5 ml QID MT 09/20/24 18:00 09/21/24 22:12 5 ML Vancomycin HCl 250 ml @ 200 mls/hr Q10H IV 09/21/24 14:00 09/21/24 14:30 200 MLS/HR Pantoprazole Sodium 40 mg DAILY@0600 PO 09/22/24 06:00 objective Gen.: Patient lying in bed in no apparent distress. On supplemental oxygen. Head: Normocephalic, atraumatic. Eyes: EOMI/PERRLA. Ears: Normal hearing. Normal anatomy. Neck/trachea: Trachea midline, supple. Nose: Normal external anatomy. Mouth: Moist mucous membranes. Chest: Decreased air entry bilaterally. No wheezing or rhonchi. Cardiovascular: Positive S1, positive S2. Regular rate and rhythm. Abdomen: Positive bowel sounds in all 4 quadrants. Soft, non-tender, non- distended. : Deferred. Rectal: Deferred. Skin: Warm, dry. Intact. Extremities: 2+ radial pulses bilaterally. No lower extremity edema. Neuro: Awake, alert, oriented x3. No gross motor or sensory deficits. Cranial nerves II through XII intact. Gait not assessed. laboratory and microbiology Laboratory Tests 09/21/24 03:01 Test 09/21/24 03:01 Range/Units Serum Glucose 300 H 74-106 mg/dL Assessment/Plan Impression: Acute on chronic hypoxic respiratory failure Acute on chronic hypercarbic respiratory failure Asthma exacerbation Atelectasis Morbid obesity Interstitial pulmonary edema Lactic acidosis Hyperglycemia Events: Remains on supplemental oxygen, 2 LPM NC Taper O2 as tolerated PRN NIPPV at night for CARIDAD. Continue bronchodilators Continue steroids Continue antibiotics Incentive spirometry Patient is stable for discharge from the pulmonary standpoint. Labs and imaging reviewed. Rest of plan as noted below. Plan: Supplemental oxygen Titrate to keep O2 sats above 92%. PRN NIPPV at night for CARIDAD. Continue bronchodilators. Benadryl. Continue antibiotics Prednisone PO. Incentive spirometry Therapeutic Lovenox Pain control Avoid oversedation Accu-Cheks, ISS. Monitor renal function. Monitor electrolytes. Supplement as necessary. Monitor ins and outs. DVT prophylaxis. Prognosis: Poor given patient's multiple co-morbidities. Rest of plan per hospitalist and other consultants. Thank you, Dr. Hickey, for allowing me to participate in this patient's care. Further recommendations will depend on the patient's clinical course. Please do not hesitate to contact me if you have any questions or concerns. This medical document was created using an electronic medical record system with [employer] [facility] dictation system. Although these documentations are being carefully reviewed, there may still be some phonetic and typographical changes. The errors are purely typographical, due to imperfection on the software program, and do not reflect any compromise in the patient's medical care Dietary Evaluation Review Recommendations by RD: Decrease Calorie Intake Comments: Recommend upgrade her diet to a CCHO-60g, consider a 2g sodium restrition, if she is retaining fluid. Expected Outcomes/Goals: controlled DM, gradual weight loss. Plan discussed with: Patient, Other (JUSTINE Muller) CAMILLA BRITTON MD Sep 21, 2024 23:05
[2024-09-22] VITALS (11 sets, daily range): BP systolic 118–151; BP diastolic 53–80; PULSE 75–91; RESP 15–20; TEMP 98–98.6; O2SAT 93–100
[2024-09-22] MEDS: PANTOPRAZOLE 40 MG TAB PO SCH (05:43)
[2024-09-22 10:09] LABS: Chloride 101 mmol/L (98-107); Potassium 3.7 mmol/L (3.5-5.1); Sodium 137 mmol/L (136-145)
[2024-09-22 10:10] LABS: Anion Gap 8 (5-15); Carbon Dioxide 28 mmol/L (20-31)
[2024-09-22 10:13] LABS: Basophils # (auto) 0.1 10 ^3/uL (0-0.2); Basophils % (auto) 0.9 % (0.0-2.0); Neutrophils # (auto) 7.1 10 ^3/uL (1.6-8.6); Nucleated Red Blood Cells % 0.1 %
[2024-09-22 10:15] LABS: BUN/Creatinine Ratio 19.1 (10.0-20.0); Blood Urea Nitrogen 21 mg/dL (9-23); Eosinophils # (auto) 0.2 10 ^3/uL (0-0.8); Eosinophils % (auto) 1.9 % (0.0-7.0); Hematocrit 45.3 % (36.0-46.0); Hemoglobin 13.7 g/dL (12.2-16.2); Lymphocytes # (auto) 3.4 10 ^3/uL (0.4-5.4); Lymphocytes % (auto) 29.1 % (10.0-50.0); Mean Corpuscular Hemoglobin 23.7 pg (28.0-32.0); Mean Corpuscular Hgb Conc. 30.3 g/dL (32.0-36.0); Mean Corpuscular Volume 78.2 fL (80.0-100.0); Monocytes % (auto) 8.6 % (0.0-12.0); Neutrophils % (auto) 59.5 % (37.0-80.0); Platelet Count (auto) 247 10^3/uL (140-450); Red Cell Distribution Width 18.5 % (11.8-14.3); White Blood Cell 11.8 10^3/uL (4.4-10.8)
[2024-09-22 10:28] LABS: Calcium 10.6 mg/dL (8.7-10.4); Glucose 166 mg/dL (74-106)
--- NOTE | 2024-09-22 13:16 | DVHDSRES ---
Discharge Summary Date of Admission Resident Creating Document: THAIS SAGASTUME RESIDENT Sep 17, 2024 at 12:29 Date of Discharge: Sep 19, 2024 Admitting Diagnosis Dyspnea Labs/Diagnostic Data: Laboratory Results Test 09/22/24 11:53 09/22/24 09:46 09/20/24 10:20 09/18/24 21:00 POC Glucose 230 mg/dl (70-106) White Blood Count 11.8 10^3/uL (4.4-10.8) Red Blood Count 5.80 10^6/uL (4.0-5.20) Hemoglobin 13.7 g/dL (12.2-16.2) Hematocrit 45.3 % (36.0-46.0) Mean Corpuscular Volume 78.2 fL (80.0-100.0) Mean Corpuscular Hemoglobin 23.7 pg (28.0-32.0) Mean Corpuscular Hemoglobin Concent 30.3 g/dL (32.0-36.0) Red Cell Distribution Width 18.5 % (11.8-14.3) Platelet Count 247 10^3/uL (140-450) Mean Platelet Volume 9.1 fL (6.9-10.8) Neutrophils (%) (Auto) 59.5 % (37.0-80.0) Lymphocytes (%) (Auto) 29.1 % (10.0-50.0) Monocytes (%) (Auto) 8.6 % (0.0-12.0) Eosinophils (%) (Auto) 1.9 % (0.0-7.0) Basophils (%) (Auto) 0.9 % (0.0-2.0) Neutrophils # (Auto) 7.1 10 ^3/uL (1.6-8.6) Lymphocytes # (Auto) 3.4 10 ^3/uL (0.4-5.4) Monocytes # (Auto) 1.0 10 ^3/uL (0-1.3) Eosinophils # (Auto) 0.2 10 ^3/uL (0-0.8) Basophils # (Auto) 0.1 10 ^3/uL (0-0.2) Nucleated Red Blood Cells 0.1 % Sodium Level 137 mmol/L (136-145) Potassium Level 3.7 mmol/L (3.5-5.1) Chloride Level 101 mmol/L (98-107) Carbon Dioxide Level 28 mmol/L (20-31) Anion Gap 8 (5-15) Blood Urea Nitrogen 21 mg/dL (9-23) Creatinine 1.10 mg/dL (0.550-1.02) Glomerular Filtration Rate Calc 62 mL/min (>90) BUN/Creatinine Ratio 19.1 (10.0-20.0) Serum Glucose 166 mg/dL (74-106) Calcium Level 10.6 mg/dL (8.7-10.4) Lactic Acid Level 2.0 mmol/L (0.4-2.0) Urine Color Colorless (Yellow) Urine Clarity Clear (Clear) Urine pH 6.5 (5.0-9.0) Urine Specific Dexter 1.016 (1.001-1.035) Urine Protein Negative (Negative) Urine Ketones Negative (Negative) Urine Blood 3+ /uL (Negative) Urine Nitrite Negative (Negative) Urine Bilirubin Negative (Negative) Urine Urobilinogen Normal mg/dL (Negative) Urine Leukocyte Esterase 2+ /uL (Negative) Urine RBC 19 /hpf (0 - 4) Urine WBC 30 /hpf (0 - 5) Urine Squamous Epithelial Cells Few /hpf (<5) Urine Bacteria None seen /hpf (None Seen) Urine Yeast (Budding) Occasional /hpf (None Urine Glucose 4+ mg/dL (Normal) Urine Opiates Screen Neg (NEGATIVE) Urine Fentanyl Screen Neg (NEGATIVE) Urine Barbiturates Screen Neg (NEGATIVE) Urine Phencyclidine Screen Neg (NEGATIVE) Urine Amphetamines Screen Neg (NEGATIVE) Urine Benzodiazepines Screen Neg (NEGATIVE) Urine Cocaine Screen Neg (NEGATIVE) Urine Cannabinoids Screen Neg (NEGATIVE) Test 09/18/24 06:15 09/17/24 14:34 09/17/24 12:00 09/17/24 11:11 Total Bilirubin 0.3 mg/dL (0.2-1.0) Aspartate Amino Transferase (AST) 20 U/L (13-40) Alanine Aminotransferase (ALT) 22 U/L (7-40) Alkaline Phosphatase 70 U/L (46-116) Troponin I High Sensitivity 5 ng/L (</=34) Total Protein 7.1 g/dL (5.7-8.2) Albumin 4.6 g/dL (3.2-4.8) D-Dimer, Quantitative 0.50 mg/L FEU (0.0-0.49) Hemoglobin A1c 11.5 % A1C (<5.7) B-Type Natriuretic Peptide 51.80 pg/mL (0-100) Blood Gas Specimen Type Arterial Blood Gas Sample Site Right radial Blood Gas Patient Temperature 37.0 Arterial Blood Date Drawn [id number] Arterial Blood pH 7.331 (7.350-7.450) Arterial Blood Partial Pressure CO2 65.0 mmHg (32.0-45.0) Arterial Blood Partial Pressure O2 78.4 mmHg (83.0-108.0) Arterial Blood HCO3 33.6 mmol/L (21.0-28.0) Arterial Blood Oxygen Saturation 94.1 % (94.0-98.0) Arterial Blood Base Excess 5.9 mmol/L (-2.0-3.0) Arterial Blood Oxyhemoglobin 93.1 % (94.0-98.0) Arterial Blood Carboxyhemoglobin 0.7 % (0.5-1.5) Arterial Blood Methemoglobin 0.4 % (0.0-1.5) Florentino Test Yes Blood Gas Total Hemoglobin 12.00 g/dL (12.0-16.0) Blood Gas Liter Flow 4.00 Blood Gas Modality Nasal cannula FiO2 % 36.0 Blood Gas Critical Value Read Back Yes Blood Gas Notified Whom nathan Fam md Blood Gas Notified Time [id number] Blood Gas Notified By It Consultant danielle Iglesias 09/17/24 11:00 Influenza Type A Antigen Negative (Negative) Influenza Type B Antigen Negative (Negative) SARS-CoV-2 Antigen (Rapid) Negative (NEGATIVE) Other Laboratory Tests 09/22/24 09:46 Brief Hx & Hospital Course: Patient is a 49-year-old female with past medical history of hypertension, dyslipidemia, type 2 diabetes, asthma, seizures, UTI causing sepsis in 2022, questionable pulmonary hypertension, who came in due to shortness of breath and cough that has been ongoing for the past 6 days. According to patient and her spouse, she usually runs hypercapnic and thought that she was having a "hypercapnic attack". Patient denies having any ill contacts or recent travel. Patient notes that she was admitted to [facility] 2 weeks ago for similar complaints and hypercapnia of 105 were she was treated for DKA. Patient also notes she has had 4 episodes of pneumonia in this year. Chest x-ray showed cardiomegaly, prominent pulmonary vasculature and interstitial opacities . Hospital course: Chest x-ray showed cardiomegaly, prominence of the pulmonary vasculature interstitial opacities, findings may be seen with pulmonary vascular congestion/interstitial pulmonary edema in the appropriate clinical setting. Extremity venous study showed no right or left lower extremity DVT. Patient was started on azithromycin, albuterol med nebs and ipratropium med nebs along with prednisone 40 mg pulmonology was also taken on board. Blood cultures on day 1 were negative, however, blood cultures drawn on day 2 grew staph epidermidis in both the bottles and patient was subsequently started on vancomycin. Patient also has severe insulin resistance with repeated high blood glucose readings and an episode of DKA that occurred 2 weeks ago, blood glucose in the hospitalization was controlled using insulin Levemir 80 units b.i.d., and an aggressive sliding scale insulin. For her chronic pain she was continued on home dose p.o. Dilaudid, pregabalin and baclofen. Blood cultures drawn on September 19 day of hospitalization grew no cultures after 24 hours of incubation. Patient was also counseled extensively on healthy diet and activity. Nystatin swish and swallow was done for the patient. On discharge, patient appeared well and had stable vital signs, blood cultures were negative and patient appeared well. Patient was discharged home with continuance of home medications. Her hospital course was uncomplicated. General Appearance: Cooperative. Well developed. Overweight/obese. In moderate distress Head Exam: Normal inspection Neck Exam: Normal inspection. Non-tender. Normal alignment Pulmonary/Respiratory: Chest non-tender. Decreased bilateral breath sounds, no crackles, no wheezing. Cardiovascular/Chest: Regular rate and rhythm. No murmurs. No JVD. Peripheral Pulses: 2+ Radial (R). 2+ Radial (L). 2+ Pedal (R). 2+ Pedal (L) Abdominal Exam: Normal bowel sounds. Soft. normal abdomen, no visible veins, Nontender. No hepatospenomegaly. No masses Lower extremities: +1 lower extremity edema Neuro/Mental Status: A&O x4. Coherent. Thoughts/Psych: Normal thought pattern. Appropriate mood and affect. Good judgement and insight Skin Exam: Normal inspection. Normal color. Warm. Dry Operations or Procedures US BiLat Lower DVT HISTORY: rule out DVT COMPARISON: None TECHNIQUE: Duplex Doppler evaluation of the deep venous system of the lower extremity from the common femoral veins, superficial femoral vein, great saphenous vein, deep femoral vein, popliteal vein, and calf veins, including color Doppler and spectral/pulsed waveform analysis, was performed. FINDINGS: Right: - Common femoral vein: Compressible - Deep femoral vein: Compressible - Femoral vein: Compressible - Popliteal vein: Compressible - Posterior tibial vein: Waveforms present - Peroneal vein: Not seen. - Other: Nothing Left: - Common femoral vein: Compressible - Deep femoral vein: Compressible - Femoral vein: Compressible - Popliteal vein: Compressible - Posterior tibial vein: Waveforms present - Peroneal vein: Not seen. - Other: Nothing IMPRESSION: No right or left lower extremity deep venous thrombosis. Condition at Discharge: Good Final Diagnosis/Problems List Acute on chronic hypoxic/hypercapnic respiratory failure Questionable asthma exacerbation Obesity hypoventilation syndrome Obstructive Sleep apnea interstitial pulmonary edema ?Right-sided heart failure can not be ruled out Lactic acidosis Possible pulmonary hypertension XU likely hemodynamically mediated/VMN Type 2 diabetes, uncontrolled, HbA1c 11.5 Bacteremia XU likely hemodynamically mediated/VMN Type 2 diabetes, uncontrolled, A1c 11.5 Severe hyperglycemia without DKA/HHS Oral candidiasis Morbid obesity Chronic fracture related pain in L2-L5 vertebra Discharge Disposition: Home Discharge Instruct/Medications Diet: Consistent carbohydrate Activity: No Restrictions, As Tolerated Follow Up/Referral: please follow up with pcp in the outpatient clinic please follow up with pulmonology in the clinic Please follow up in discharge clinic Medications: continue home medication Discharge Statement: "Patient was advised to return to the ER or call 911 if any headaches, dizziness, shortness of breath, chest pain, abdominal pain, bleeding, fevers, or worsening of medical condition. Patient was counseled about treatment plan, medications, possible side effects, patientverbalized understanding. All questions were answered to the best of my ability. This discharge took greater then 30 minutes in planning, reviewing documentation, counseling the patient, and discussing with other team members." ASSESSMENT ASSESSMENT Assessment Acute on chronic hypoxic/hypercapnic respiratory failure Questionable asthma exacerbation Obesity hypoventilation syndrome Obstructive Sleep apnea interstitial pulmonary edema ?Right-sided heart failure can not be ruled out Lactic acidosis Possible pulmonary hypertension XU likely hemodynamically mediated/VMN Type 2 diabetes, uncontrolled, HbA1c 11.5 Bacteremia XU likely hemodynamically mediated/VMN Type 2 diabetes, uncontrolled, A1c 11.5 Severe hyperglycemia without DKA/HHS Oral candidiasis Morbid obesity Chronic fracture related pain in L2-L5 vertebra Date of Service: Sep 22, 2024 Billing Provider: SONYA REYNA MD Common Visit Codes: 15873-HCC/OBS DISCH DAY >30min THAIS SAGASTUME Sep 22, 2024 13:16 SONYA REYNA MD Sep 23, 2024 17:41
--- NOTE | 2024-09-22 23:16 | DVHPN2 ---
Progress Note - Dictate Date Seen: Sep 22, 2024 Medical Necessity Reason Pt with a Central, PICC or Fol: No Subjective Patient seen and examined at bedside. Remains on supplemental oxygen Overnight events reviewed. vital signs Vital Sign Date Time Temp Pulse Resp B/P (MAP) Pulse Ox O2 Delivery O2 Flow Rate FiO2 09/22/24 13:33 98.4 77 18 96 09/22/24 12:34 118/54 (75) 09/22/24 12:08 Nasal Cannula 2.0 09/22/24 12:08 28 Total Intake and Output 09/21/24 09/21/24 09/22/24 15:00 23:00 07:00 Intake Total 240 ml 2150 ml 1430 ml Balance 240 ml 2150 ml 1430 ml objective Gen.: Patient lying in bed in no apparent distress. On supplemental oxygen. Head: Normocephalic, atraumatic. Eyes: EOMI/PERRLA. Ears: Normal hearing. Normal anatomy. Neck/trachea: Trachea midline, supple. Nose: Normal external anatomy. Mouth: Moist mucous membranes. Chest: Decreased air entry bilaterally. No wheezing or rhonchi. Cardiovascular: Positive S1, positive S2. Regular rate and rhythm. Abdomen: Positive bowel sounds in all 4 quadrants. Soft, non-tender, non- distended. : Deferred. Rectal: Deferred. Skin: Warm, dry. Intact. Extremities: 2+ radial pulses bilaterally. No lower extremity edema. Neuro: Awake, alert, oriented x3. No gross motor or sensory deficits. Cranial nerves II through XII intact. Gait not assessed. laboratory and microbiology Laboratory Tests 09/22/24 09:46 Test 09/22/24 09:46 Range/Units Serum Glucose 166 H 74-106 mg/dL Assessment/Plan Impression: Acute on chronic hypoxic respiratory failure Acute on chronic hypercarbic respiratory failure Asthma exacerbation Atelectasis Morbid obesity Interstitial pulmonary edema Lactic acidosis Hyperglycemia Events: Remains on supplemental oxygen, 3 LPM NC Taper O2 as tolerated PRN NIPPV at night for CARIDAD. Complete steroids Bronchodilators Incentive spirometry Patient is stable for discharge from the pulmonary standpoint. Follow up in 2-3 weeks in Pulmonary Clinic. Labs and imaging reviewed. Rest of plan as noted below. Plan: Supplemental oxygen Titrate to keep O2 sats above 92%. PRN NIPPV at night for CARIDAD. Continue bronchodilators. Antibiotics Prednisone PO. Incentive spirometry Pain control Avoid oversedation Accu-Cheks, ISS. Monitor renal function. Monitor electrolytes. Supplement as necessary. Monitor ins and outs. DVT prophylaxis. Prognosis: Poor given patient's multiple co-morbidities. Rest of plan per hospitalist and other consultants. Thank you, Dr. Hickey, for allowing me to participate in this patient's care. Further recommendations will depend on the patient's clinical course. Please do not hesitate to contact me if you have any questions or concerns. This medical document was created using an electronic medical record system with [employer] dictation system. Although these documentations are being carefully reviewed, there may still be some phonetic and typographical changes. The errors are purely typographical, due to imperfection on the software program, and do not reflect any compromise in the patient's medical care Dietary Evaluation Review Recommendations by RD: Decrease Calorie Intake Comments: Recommend upgrade her diet to a CCHO-60g, consider a 2g sodium restrition, if she is retaining fluid. Expected Outcomes/Goals: controlled DM, gradual weight loss. Plan discussed with: Patient, Other (JUSTINE Muller) CAMILLA BRITTON MD Sep 22, 2024 23:16
== END 2024-09-22 14:27 | disposition home health service (06) | DRG 720 ==
LOC: ER 10:08 → TELE 12:29 → TELE-CENTR 15:13
PROVIDERS: ADMIT Student in an Organized Health Care Education/Training Program; ATTEND Student in an Organized Health Care Education/Training Program
PROC: 5A09357 Assistance with Respiratory Ventilation, Less than 24 Consecutive Hours, Continuous Positive Airway Pressure (ICD-10-PCS; principal; 2024-09-17)
PROC: 5A09357 Assistance with Respiratory Ventilation, Less than 24 Consecutive Hours, Continuous Positive Airway Pressure (ICD-10-PCS; 2024-09-18)
PROC: 05HY33Z Insertion of Infusion Device into Upper Vein, Percutaneous Approach (ICD-10-PCS; 2024-09-18)
PROC: B54NZZA Ultrasonography of Left Upper Extremity Veins, Guidance (ICD-10-PCS; 2024-09-18)
PROC: 5A09357 Assistance with Respiratory Ventilation, Less than 24 Consecutive Hours, Continuous Positive Airway Pressure (ICD-10-PCS; 2024-09-19)
PROC: 5A09357 Assistance with Respiratory Ventilation, Less than 24 Consecutive Hours, Continuous Positive Airway Pressure (ICD-10-PCS; 2024-09-20)
PROC: 5A09357 Assistance with Respiratory Ventilation, Less than 24 Consecutive Hours, Continuous Positive Airway Pressure (ICD-10-PCS; 2024-09-21)
DX: A41.9 Sepsis, unspecified organism (principal); J96.21 Acute and chronic respiratory failure with hypoxia; N17.0 Acute kidney failure with tubular necrosis; J15.69 Pneumonia due to other Gram-negative bacteria; E87.20 Acidosis, unspecified; I27.20 Pulmonary hypertension, unspecified; E66.2 Morbid (severe) obesity with alveolar hypoventilation; B37.0 Candidal stomatitis; I50.810 Right heart failure, unspecified; J15.9 Unspecified bacterial pneumonia; J44.0 Chronic obstructive pulmonary disease with (acute) lower respiratory infection; J45.901 Unspecified asthma with (acute) exacerbation; Z20.822 Contact with and (suspected) exposure to COVID-19; J81.1 Chronic pulmonary edema; M84.48XA Pathological fracture, other site, initial encounter for fracture; R56.9 Unspecified convulsions; J44.1 Chronic obstructive pulmonary disease with (acute) exacerbation; J96.22 Acute and chronic respiratory failure with hypercapnia; E11.65 Type 2 diabetes mellitus with hyperglycemia; N39.0 Urinary tract infection, site not specified; E78.5 Hyperlipidemia, unspecified; I11.9 Hypertensive heart disease without heart failure; Z99.81 Dependence on supplemental oxygen; Z82.5 Family history of asthma and other chronic lower respiratory diseases; Z82.3 Family history of stroke; Z82.49 Family history of ischemic heart disease and other diseases of the circulatory system; Z88.6 Allergy status to analgesic agent; Z88.5 Allergy status to narcotic agent; Z88.0 Allergy status to penicillin; Z87.891 Personal history of nicotine dependence; Z68.45 Body mass index [BMI] 70 or greater, adult; Z79.4 Long term (current) use of insulin
CPT/HCPCS: 36415; 36600; 71045; 80048; 80053; 80202; 80307; 81001; 82805; 82962; 83036; 83605; 83880; 84484; 85025; 85379; 87040; 87070; 87077; 87081; 87086; 87186; 87205; 87426; 87804; 93970; 94640; 94660; 96365; 96375; 99291; G0378; J1815; J2405; J7060

== ENCOUNTER 2024-10-05 21:10 | Inpatient (IN) | payer MEDICAID ==
[~2024-10-05] VITALS: Ht 152.4 cm; Wt 184.0 kg
[2024-10-05] MEDS: SODIUM CHLORIDE 0.9% 1,000 ML IV ONE (03:00)
[~2024-10-05 21:10] MED LIST changes: +AZIT-185 PO; -GLIP10TA21; +LEVEMIR SC; -METF-372 PO
[2024-10-05] MEDS: IPRATROPIUM BROM 0.5 MG/2.5ML INH SOL NEB ONE (22:08)
[2024-10-05] MEDS: ALBUTEROL SULF 2.5 MG/0.5ML(0.5%) NEB SOLN NEB ONE (22:08)
--- NOTE | 2024-10-05 22:10 | ED.PDOC ---
History of present illness HPI Comments 49-year-old female who came to ER for hyperglycemia. Patient was just discharged here 12 days ago and was diagnosed with 1.Acute on chronic hypoxic/hypercapnic respiratory failure, 2. Questionable asthma exacerbation, 3. Obesity hypoventilation syndrome, 4. Obstructive Sleep apnea, 5. interstitial pulmonary edema, 6. Right-sided heart failure can not be ruled out, 7. XU likely hemodynamically mediated/VMN, 8. Type 2 diabetes, uncontrolled, 9. Severe hyperglycemia without DKA/HHS, 10. Oral candidiasis , 11. Morbid obesity. Patient states for the past 3 days her blood sugar has been consistently elevated despite medications and that she is experiencing shortness of breath a gain, patient is saturating at 90% upon arrival at the ER. Blood sugar read hi, x2 at the ER Chief Complaint: Hyperglycemia Time Seen by MD: 22:09 Primary Care Provider: Chiki KRAUSE History of present illness: Nurses Notes Allergies: Coded Allergies: Ibuprofen (Verified Allergy, Unknown, 10/13/20) NSAIDs (Verified Allergy, Unknown, 12/18/22) Oxycodone (Verified Allergy, Unknown, 10/13/20) Penicillins (Verified Allergy, Unknown, 12/18/22) Uncoded Allergies: BISAGLER (Allergy, Unknown, 10/13/20) Home Meds Active Scripts Azithromycin (ZITHROMAX TABLET) 250 Mg Tb, 250 MG PO DAILY for 3 Days, #3 TAB Prov:THAIS SAGASTUME 09/19/24 Nystatin (Mycostatin) 1 Applic Ap, 1 APPLIC TOP BID for 7 Days, #120 APPLIC Prov:JUAN ALBERTO OLIVA MD 12/15/22 Reported Medications Insulin Detemir (Levemir) Inj, 80 SC BID, INJ 09/18/24 Meloxicam (Meloxicam) 15 Mg Tab, 1 TAB PO DAILY 12/12/22 Aspirin (Aspirin Low Dose) 81 Mg Tab, 1 TAB PO DAILY 12/12/22 Medroxyprogesterone Acetate (Medroxyprogesterone Aceta) 10 Mg Tab, 1 TAB PO DAILY 12/12/22 Hydromorphone Hcl (Dilaudid) 4 Mg Tab, 1 TAB PO TID PRN 12/12/22 Ropinirole Hydrochloride (Ropinirole Hydrochloride) 2 Mg Tab, PO 12/12/22 Cetirizine HCl (Cetirizine Hydrochloride) 10 Mg Tab, 1 TAB PO DAILY 12/12/22 Buspirone HCl (Buspirone Hydrochloride) 30 Mg Tab, 1 TAB PO BID 12/12/22 Lurasidone Hcl (LATUDA) 80 Mg Tab, 1 TAB PO 12/12/22 Baclofen (Baclofen) 20 Mg Tab, 20 12/12/22 Pregabalin (Pregabalin) 200 Mg Cap, 1 CAP PO TID 12/12/22 Methylnaltrexone [place] (Relistor) 150 Mg Tab, TAB PO 12/12/22 Ubrogepant (Ubrelvy) 100 Mg Tab, PO 12/12/22 Albuterol Sulfate (Albuterol Sulfate Hfa) 108 Mcg/Act Aer, INH 12/12/22 Ipratropium [place] Hfa (Atrovent Hfa) 17 Mcg Aer, INH 12/12/22 Morphine Sulfate (Morphine Sulfate Cr) 30 Mg Tab, 1 TAB PO BIDPRN PRN 12/12/22 Hydromorphone Hcl (Hydromorphone Hcl) 4 Mg Tab, PO 12/12/22 Oxybutynin Chloride (Oxybutynin Chloride) 5 Mg Tab, 1 TAB PO BID 12/12/22 Montelukast Sodium (MONTELUKAST SODIUM) 10 Mg Tab, 1 TAB PO DAILY 12/12/22 Ropinirole Hydrochloride (Ropinirole Hcl) 2 Mg Tab, 2 12/12/22 Rosuvastatin Calcium (Rosuvastatin Calcium) 40 Mg Tab, 1 TAB PO 12/12/22 Information Source: Patient Mode of Arrival: Wheelchair Timing: Days Duration: Since onset Prehospital treatment: None [place]: Shaky, Sweaty Symptoms: Shaky, Sweaty History of: Diabetes Associated signs and symptoms: Abdominal Pain Past Medical History PAST MEDICAL HISTORY: Asthma, DM, High Lipids, HTN, Seizures Past Medical History (Other): Morbid obesity Surgical History: , 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: Denies all SYSTEM TRAINER Hx Family History Family History: Reviewed,noncontributory to illness, Family hx of DM, Family hx of HTN, Family hx of stroke Social History Smoker: Quit Greater Than 1 Year Alcohol: Denies ETOH Use Drugs: Denies Drug Use Lives In: Home Constitutional: reports: weakness; denies: chills, diaphoresis, fatigue, fever, malaise, sweats, others EENTM: denies: blurred vision, double vision, ear bleeding, ear discharge, ear drainage, ear pain, ear ringing, eye pain, eye redness, hearing loss, mouth pain, mouth swelling, nasal discharge, nose bleeding, nose congestion, nose pain, photophobia, tearing, throat pain, throat swelling, voice changes, others Respiratory: reports: SOB at rest, shortness of breath, SOB with excertion; denies: cough, hemoptysis, orthopnea, stridor, wheezing, others Cardiovascular: denies: chest pain, dizzy spells, diaphoresis, Dyspnea on exertion, edema, irregular heart beat, left arm pain, lightheadedness, palpitations, PND, syncope, others Gastrointestinal: denies: abdomen distended, abdominal pain, blood streaked bowels, constipated, diarrhea, dysphagia, difficulty swallowing, hematemesis, melena, nausea, poor appetite, poor fluid intake, rectal bleeding, rectal pain, vomiting, others Genitourinary: denies: abnormal vagina bleeding, burning, dyspareunia, dysuria, flank pain, frequency, hematuria, incontinence, pain, , vagina discharg e, urgency, others Neurological: denies: dizziness, fainting, headache, left sided numbness, left sided weakness, numbness, paresthesia, pre-existing deficit, right sided numbness, right sided weakness, seizure, speech problems, tingling, tremors, weakness, others Musculoskeletal: denies: back pain, gout, joint pain, joint swelling, muscle pain, muscle stiffness, neck pain, others Integumetry: denies: bruises, change in color, change in hair/nails, dryness, laceration, lesions, lumps, rash, wounds, others Allergic/Immunocompromised: denies: Difficulty Healing, Frequent Infections, Hives, Itching, others Hematologic/Lymphatic: denies: anemia, blood clots, easy bleeding, easy bruising, swollen glands, others Endocrine: denies: excessive hunger, excessive sweating, excessive thirst, excessive urination, flushing, intolerance to cold, intolerance to heat, unexplained weight gain, unexplained weight loss, others Psychiatric: reports: anxiety; denies: bipolar disorder, depression, hopeless, panic disorder, schizophrenia, sleepless, suicidal, others Physical Exam General Appearance: No Apparent Distress, Normal HEENT: Normal ENT Inspection, Pharynx Normal, TMs Normal Neck: Full Range of Motion, Non-Tender, Normal, Normal Inspection Respiratory: Chest Non-Tender, Lungs Clear, No Accessory Muscle Use, No Respiratory Distress, Normal Breath Sounds Cardiovascular: No Edema, No JVD, No Murmur, No Gallop, Normal Peripheral Pulses, Regular Rate/Rhythm Breast Exam: Deferred Gastrointestinal: No Organomegaly, Non Tender, No Pulsatile Mass, Normal Bowel Sounds, Soft Genitalia: Deferred Pelvic: Deferred Rectal: Deferred Extremities: No calf tenderness, Normal capillary refill, Normal inspection, Normal range of motion, Non-tender, No pedal edema Musculoskeletal : Apperance: Normal Neurologic: Alert, nursing services manager II-XII nml as Tested, No Motor Deficits, Normal Affect, Normal Mood, No Sensory Deficits Cerebellar Function: Normal Reflexes: Normal Skin: Dry, Normal Color, Warm Lymphatic: No Adenopathy Was a procedure done? Was a procedure done?: No Differential Diagnosis (DM) Differential Diagnosis: DKA, Electrolyte Abnormality, Gastritis, Hyperglycemia, UTI X-Ray, Labs, Meds, VS Vital Signs Date Time Temp Pulse Resp B/P (MAP) Pulse Ox O2 Delivery O2 Flow Rate FiO2 10/05/24 22:08 98 Nasal Cannula* 5 40 10/05/24 22:08 20 98 Nasal Cannula* 5 40 10/05/24 21:27 98.9 111 26 142/87 (105) 96 Lab Test 10/05/24 23:00 10/05/24 21:59 10/05/24 21:55 Range/Units Troponin I High Sensitivity Pending 8 </=34 ng/L Blood Gas Specimen Type Venous Blood Gas Sample Site Vbg - n/a Blood Gas Patient Temperature 37.0 Arterial Blood Date Drawn [id number] Florentino Test N/a Venous Blood pH 7.336 7.320-7.430 Venous Blood pCO2 at Patient Temp 62.2 *H 38.0-54.0 mmHg Venous Blood pO2 at Patient Temp 79.7 H 23.0-48.0 mmHg Venous Blood HCO3 32.5 H 22.0-29.0 mmol/L Venous Blood Base Excess 4.6 H -2.0-3.0 mmol/L Blood Gas Liter Flow 5.00 Blood Gas Modality Nasal cannula FiO2 % 40.0 Blood Gas Critical Value Read Back Yes Blood Gas Notified Whom ivory Pop md Blood Gas Notified Time [id number] Blood Gas Notified By naida Culver rrt White Blood Count 9.9 4.4-10.8 10^3/uL Red Blood Count 4.86 4.0-5.20 10^6/uL Hemoglobin 12.2 12.2-16.2 g/dL Hematocrit 39.3 36.0-46.0 % Mean Corpuscular Volume 80.8 80.0-100.0 fL Mean Corpuscular Hemoglobin 25.0 L 28.0-32.0 pg Mean Corpuscular Hemoglobin Concent 30.9 L 32.0-36.0 g/dL Red Cell Distribution Width 18.7 H 11.8-14.3 % Platelet Count 142 140-450 10^3/uL Mean Platelet Volume 9.9 6.9-10.8 fL Neutrophils (%) (Auto) 71.5 37.0-80.0 % Lymphocytes (%) (Auto) 16.4 10.0-50.0 % Monocytes (%) (Auto) 10.6 0.0-12.0 % Eosinophils (%) (Auto) 1.0 0.0-7.0 % Basophils (%) (Auto) 0.5 0.0-2.0 % Neutrophils # (Auto) 7.1 1.6-8.6 10 ^3/uL Lymphocytes # (Auto) 1.6 0.4-5.4 10 ^3/uL Monocytes # (Auto) 1.1 0-1.3 10 ^3/uL Eosinophils # (Auto) 0.1 0-0.8 10 ^3/uL Basophils # (Auto) 0 0-0.2 10 ^3/uL Nucleated Red Blood Cells 0.1 % Sodium Level 127 L 136-145 mmol/L Potassium Level 3.8 3.5-5.1 mmol/L Chloride Level 87 L 98-107 mmol/L Carbon Dioxide Level 32 H 20-31 mmol/L Anion Gap 8 5-15 Blood Urea Nitrogen 35 H 9-23 mg/dL Creatinine 1.95 H 0.550-1.02 mg/dL Glomerular Filtration Rate Calc 31 >90 mL/min BUN/Creatinine Ratio 17.9 10.0-20.0 Serum Glucose 718 *H 74-106 mg/dL Calcium Level 10.3 8.7-10.4 mg/dL Magnesium Level 1.8 1.6-2.6 mg/dL Total Bilirubin 0.4 0.2-1.0 mg/dL Aspartate Amino Transferase (AST) 27 13-40 U/L Alanine Aminotransferase (ALT) 23 7-40 U/L Alkaline Phosphatase 79 46-116 U/L B-Type Natriuretic Peptide 11.07 0-100 pg/mL Total Protein 6.4 5.7-8.2 g/dL Albumin 4.2 3.2-4.8 g/dL Current Medications Medications (Trade) Dose Ordered Sig/Prashanth Route Start Time Stop Time Status Last Admin Albuterol (Ventolin Medneb) 5 mg ONCE ONCE NEB 10/05/24 21:45 10/05/24 21:46 DC 10/05/24 22:08 Ipratropium [place] (Atrovent Medneb) 0.5 mg ONCE ONCE NEB 10/05/24 21:45 10/05/24 21:46 DC 10/05/24 22:08 Time of 1ST Reevaluation: 22:04 Reevaluation 1ST: Unchanged Time of 2ND Reevaluation: 23:11 Reevaluation 2ND: Unchanged Patient Education/Counseling: Diagnosis, Treatment Family Education/Counseling: Diagnosis, Treatment Departure 1 Departure Time of Disposition: 23:11 Impression: Primary Impression: COPD exacerbation Additional Impressions: Hyperglycemia Respiratory failure with hypoxia and hypercapnia Disposition: ADMITTED INPATIENT Condition: Guarded Critical Care Note Critical Care Time?: Yes (35 min-critical care time only) Critical care comment: Hyperglycemia Total critical care time: Approximately 36 minutes Due to a high probability of clinically significant, life threatening deterioration, the patient required my highest level of preparedness to intervene emergently and I personally spent this critical care time directly and personally managing the patient. This critical care time included obtaining a history; examining the patient; pulse oximetry; ordering and review of studies; arranging urgent treatment with development of a management plan; evaluation of patient's response to treatment; frequent reassessment; and, discussions with other providers. This critical care time was performed to assess and manage the high probability of imminent, life-threatening deterioration that could result in multi-organ failure. It was exclusive of separately billable procedures and treating other patients. Stability Stability form required: No Heart Score Heart Score: Heart Score Response (Comments) Value History Slightly Suspicious 0 EKG Repolarization Disturb 1 Age 45-64 1 Risk Factors 1 or 2 risk factors 1 Troponin Normal limit 0 Total 3 I personally scribed for TAZ POP MD ([email or web address]) on 10/05/24 at 22:10. Electronically submitted by Erwin Arellano ([email or web address]). TAZ POP MD Oct 05, 2024 22:10
[2024-10-05 22:22] LABS: Basophils # (auto) 0 10 ^3/uL (0-0.2); Eosinophils # (auto) 0.1 10 ^3/uL (0-0.8); Hematocrit 39.3 % (36.0-46.0); Lymphocytes # (auto) 1.6 10 ^3/uL (0.4-5.4); Nucleated Red Blood Cells % 0.1 %
[2024-10-05 22:24] LABS: Basophils % (auto) 0.5 % (0.0-2.0); Hemoglobin 12.2 g/dL (12.2-16.2); Lymphocytes % (auto) 16.4 % (10.0-50.0); Mean Corpuscular Hgb Conc. 30.9 g/dL (32.0-36.0); Mean Corpuscular Volume 80.8 fL (80.0-100.0); Monocytes # (auto) 1.1 10 ^3/uL (0-1.3); Monocytes % (auto) 10.6 % (0.0-12.0); Neutrophils # (auto) 7.1 10 ^3/uL (1.6-8.6); Neutrophils % (auto) 71.5 % (37.0-80.0); Platelet Count (auto) 142 10^3/uL (140-450); Red Blood Cells 4.86 10^6/uL (4.0-5.20); Red Cell Distribution Width 18.7 % (11.8-14.3); White Blood Cell 9.9 10^3/uL (4.4-10.8)
[2024-10-05 22:38] LABS: Alanine Aminotransferase 23 U/L (7-40); Albumin 4.2 g/dL (3.2-4.8); Alkaline Phosphatase 79 U/L (46-116); Anion Gap 8 (5-15); BUN/Creatinine Ratio 17.9 (10.0-20.0); Calcium 10.3 mg/dL (8.7-10.4); Magnesium 1.8 mg/dL (1.6-2.6); Potassium 3.8 mmol/L (3.5-5.1)
[2024-10-05 22:39] LABS: Bilirubin, Total 0.4 mg/dL (0.2-1.0); Total Protein 6.4 g/dL (5.7-8.2)
[2024-10-05 22:40] LABS: Blood Urea Nitrogen 35 mg/dL (9-23); Carbon Dioxide 32 mmol/L (20-31); Chloride 87 mmol/L (98-107); Sodium 127 mmol/L (136-145)
[2024-10-05 22:42] LABS: Aspartate Aminotransferase 27 U/L (13-40)
[2024-10-05] MEDS: MAGNESIUM SULFATE 1GM/100ML 100 ML IV SCH (22:45)
--- NOTE | 2024-10-05 22:49 | DVH ---
CHEST RADIOGRAPH Indication: SOB Technique: Single frontal view of the chest was obtained Comparison: XY CHEST XRAY 1 VIEW on DOS: 09/18/24, XY CHEST PORTABLE on DOS: 09/17/24, XY CHEST MICHELLE BLE on DOS: 12/18/22 FINDINGS: Lines and Tubes: None Lungs: Clear Pleura: No effusion. No pneumothorax. Cardiomediastinal contours: Unremarkable Bones: Unremarkable IMPRESSION: Low lung volumes with bronchovascular crowding. Difficult to exclude superimposed infectious process although unlikely.
[2024-10-05 23:08] LABS: Glucose 718 mg/dL (74-106)
--- NOTE | 2024-10-05 23:53 | DVHHPRES ---
History of Present Illness Resident Creating Document: KAREN KEANE History of Present Illness This is a 49-year-old female with past medical history of hypertension, type 2 diabetes mellitus, asthma, undiagnosed COPD (on 2 L of oxygen through nasal cannula at home), dyslipidemia, seizures, questionable pulmonary hypertension type 3 who presented to the ED due to acute shortness of breaths that started one day before coming to the ED. the patient was recently discharged a couple of weeks ago due to similar symptoms. Patient reported multiple hospitalizations i n 2023 due to possible pneumonia and respiratory issues. Admission, the patient is on 2 L of oxygen through nasal cannula on mild respiratory distress. Initial labs showed anemia which has been chronic according to previous visits, creatinine was 1.95 and BUN 35. The patient is also having severe hyperglycemia with blood glucose at 718 without anion gap elevation or metabolic acidosis excluding DKA at this time. BNP was 11.07 on normal range and troponins were negative. The patient denies chest pain, fever, chills, abdominal pain or any other symptoms. Initial chest x-ray was showing pulmonary vascular congestion without evidence of evident focal consolidation. The patient also has chronic bilateral lower extremity 3+ pitting edema. We will admit the patient for further assessment and management. Patient mentioned that uses 80 units of Levemir in the morning and 80 units of L evemir in the evening associated with insulin pump with Humulin R insulin, also uses Ozempic 1 mg per week. Allergies: Ciprofloxacin, penicillin. Cardiovascular: HTN, hyperipidemia, pulmonary hypertension Pulmonary: Asthma Endocrine: Diabetes Past Surgical History: , Tubal Ligation Past Surgical History carpal tunnel tendon release Family History: None Smoke: Quit (QUIT IN 2011, before that smoked for aprox 13 years) ALCOHOL: occassional Drugs: None Lives: with Family Domestic Violence: Neg Review of Systems Constitutional: No: Fever, Chills, Sweats, Weakness, Malaise, Other Eyes: No: Pain, Vision change, Conjunctivae inflammation, Eyelid inflammation, Other, Redness ENT: No: Ear pain, Ear discharge, Nose pain, Nose discharge, Nose congestion, Mouth pain, Mouth swelling, Throat pain, Throat swelling, Other Respiratory: Cough, Shortness of breath, SOB with excertion; No: Dry, Wheezing, Hemoptysis, Pleuritic Pain, Sputum, Wheezing, Other Cardiovascular: Orthopnea; No: Chest Pain, Palpitations, Paroxysmal Noc. Dyspnea, Edema, Lt Headedness, Other Gastrointestinal: No: Nausea, Vomiting, Abdominal Pain, Diarrhea, Constipation, Melena, Hematochezia, Other Genitourinary: No Dysuria, No Frequency, No Incontinence, No Hematuria, No Retention, No Other Musculoskeletal: other (Bilateral lower extremity 3+ pitting edema); No: neck pain, shoulder pain, arm pain, back pain, hand pain, leg pain, foot pain Skin: No: Rash, Lesions, Jaundice, Bruising, Other Neurological: No: Weakness, Numbness, Incoordination, Change in speech, Confusion, Seizures, Other Allergies: Coded Allergies: Ibuprofen (Verified Allergy, Unknown, 10/13/20) NSAIDs (Verified Allergy, Unknown, 12/18/22) Oxycodone (Verified Allergy, Unknown, 10/13/20) Penicillins (Verified Allergy, Unknown, 12/18/22) Uncoded Allergies: BISAGLER (Allergy, Unknown, 10/13/20) Glargine (Allergy, Unknown, Headache, facial swelling, 10/09/24) Exam Vital Signs Vital Signs Date Time Temp Pulse Resp B/P (MAP) Pulse Ox O2 Delivery O2 Flow Rate FiO2 10/05/24 22:08 98 Nasal Cannula* 5 40 10/05/24 22:08 20 10/05/24 21:27 98.9 111 142/87 (105) General Appearance: Alert, Oriented X3, Cooperative, mild distress HEENT: Atraumatic, PERRLA, EOMI, Mucous membr. moist/pink Respiratory: Other (Decreased breath sounds airflow to bilateral lungs with associated mild crackles on bilateral lung bases.) Cardiovascular: Regular rate, Normal S1, Normal S2, No murmurs Abdominal: Normal bowel sounds, Soft, No tenderness, No hepatospenomegaly Extremities: No clubbing, No cyanosis, Normal pulses, Other (There is bilateral lower extremity 3+ pitting edema until midtibia) Skin: No rashes, No breakdown, No significant lesion Neuro: Normal speech, Strength at 5/5 X4 ext, Normal tone, Sensation intact, Cranial nerves 3-12 NL, Reflexes 2+ Psych/Mental Status: Mental status NL, Mood NL Labs/Xrays Labs Test 10/05/24 23:00 10/05/24 21:59 10/05/24 21:55 Range/Units Troponin I High Sensitivity 8 </=34 ng/L Blood Gas Specimen Type Venous Blood Gas Sample Site Vbg - n/a Blood Gas Patient Temperature 37.0 Arterial Blood Date Drawn [id number] Florentino Test N/a Venous Blood pH 7.336 7.320-7.430 Venous Blood pCO2 at Patient Temp 62.2 *H 38.0-54.0 mmHg Venous Blood pO2 at Patient Temp 79.7 H 23.0-48.0 mmHg Venous Blood HCO3 32.5 H 22.0-29.0 mmol/L Venous Blood Base Excess 4.6 H -2.0-3.0 mmol/L Blood Gas Liter Flow 5.00 Blood Gas Modality Nasal cannula FiO2 % 40.0 Blood Gas Critical Value Read Back Yes Blood Gas Notified Whom ivory Barragan md Blood Gas Notified Time [id number] Blood Gas Notified By naida Culver rrt White Blood Count 9.9 4.4-10.8 10^3/uL Red Blood Count 4.86 4.0-5.20 10^6/uL Hemoglobin 12.2 12.2-16.2 g/dL Hematocrit 39.3 36.0-46.0 % Mean Corpuscular Volume 80.8 80.0-100.0 fL Mean Corpuscular Hemoglobin 25.0 L 28.0-32.0 pg Mean Corpuscular Hemoglobin Concent 30.9 L 32.0-36.0 g/dL Red Cell Distribution Width 18.7 H 11.8-14.3 % Platelet Count 142 140-450 10^3/uL Mean Platelet Volume 9.9 6.9-10.8 fL Neutrophils (%) (Auto) 71.5 37.0-80.0 % Lymphocytes (%) (Auto) 16.4 10.0-50.0 % Monocytes (%) (Auto) 10.6 0.0-12.0 % Eosinophils (%) (Auto) 1.0 0.0-7.0 % Basophils (%) (Auto) 0.5 0.0-2.0 % Neutrophils # (Auto) 7.1 1.6-8.6 10 ^3/uL Lymphocytes # (Auto) 1.6 0.4-5.4 10 ^3/uL Monocytes # (Auto) 1.1 0-1.3 10 ^3/uL Eosinophils # (Auto) 0.1 0-0.8 10 ^3/uL Basophils # (Auto) 0 0-0.2 10 ^3/uL Nucleated Red Blood Cells 0.1 % Sodium Level 127 L 136-145 mmol/L Potassium Level 3.8 3.5-5.1 mmol/L Chloride Level 87 L 98-107 mmol/L Carbon Dioxide Level 32 H 20-31 mmol/L Anion Gap 8 5-15 Blood Urea Nitrogen 35 H 9-23 mg/dL Creatinine 1.95 H 0.550-1.02 mg/dL Glomerular Filtration Rate Calc 31 >90 mL/min BUN/Creatinine Ratio 17.9 10.0-20.0 Serum Glucose 718 *H 74-106 mg/dL Calcium Level 10.3 8.7-10.4 mg/dL Magnesium Level 1.8 1.6-2.6 mg/dL Total Bilirubin 0.4 0.2-1.0 mg/dL Aspartate Amino Transferase (AST) 27 13-40 U/L Alanine Aminotransferase (ALT) 23 7-40 U/L Alkaline Phosphatase 79 46-116 U/L B-Type Natriuretic Peptide 11.07 0-100 pg/mL Total Protein 6.4 5.7-8.2 g/dL Albumin 4.2 3.2-4.8 g/dL Assessment/Plan Assessment/Plan Assessment/plan Acute hypoxic/hypercapnic respiratory failure likely due to Asthma exacerbation? Possible undiagnosed COPD Possible Pulmonary hypertension type 3 R/O gram +/- pneumonia -currently on 2 L of oxygen through nasal cannula -initial chest x-ray showed pulmonary vascular congestion with possible interstitial infiltrates -start albuterol and ipratropium med nebs -start IV azithromycin daily -Magnesium sulfate 2 gr -methylprednisolone 40mg IV -order CT scan of the chest without contrast -Ordered BIPAP at night Severe uncontrolled type 2 diabetes mellitus -blood glucose on admission was 718 -ABG showed respiratory acidosis with metabolic compensation. Anion gap was 8. -patient mental status was alert and oriented X3. No DKA or HHS at this time -start aggressive sliding scale insulin -Patient needs basal insulin regimen but is allergic to LANTUS. Told to bring LEVEMIR from home and will resume it. Chronic normocytic hypochromic anemia -last hemoglobin was 12.2 -ordered iron panel and ferritin -monitor H&H XU likely due to vasomotor nephropathy -last creatinine was 1.95 and BUN 35 -Start IV fluids 75cc/hr -Monitor kidney function Possible right sided heart failure in the setting of possible Pulm HTN, R/O systolic/diastolic heart failure -Ordered echocardiogram, last echocardiogram was performed in 2022 showing a normal LVEF of 65% -troponins were negative Dyslipidemia (severe hypertriglyceridemia) -Lipid panel showed tryglycerides 1547 and total cholesterol >200 -Atorvastatin 80mg daily Morbid obesity -counseled on weight loss Goals of care discussed with patient and at bedside, FULL CODE Plan discussed with Dr. Munroe Plan discussed with: Patient Date of Service: Oct 05, 2024 Billing Provider: EDSON MUNROE MD Common Visit Codes: [id number] INP/OBS CARE (HIGH) KAREN KEANE RESIDENT Oct 05, 2024 23:53 EDSON MUNROE MD Oct 09, 2024 19:50
[2024-10-06] VITALS (9 sets, daily range): BP systolic 112–142; BP diastolic 62–87; PULSE 94–111; RESP 14–24; TEMP 98.9–99; O2SAT 88–98
[2024-10-06] MEDS ORDERED: FUROSEMIDE 40 MG/4 ML VIAL IV SCH (00:15)
[2024-10-06] MEDS ORDERED: DEXTROSE (50%) 50ML SYRG IV PRN ×2 (00:15→17:45)
[2024-10-06 00:25] LABS: Cholesterol 215 mg/dL (< 200); HDL Cholesterol 32 mg/dL (40-59); Triglycerides 1547 mg/dL (< 150)
[2024-10-06 00:44] LABS: % Iron Saturation 24.7 % (15-50)
[2024-10-06] MEDS: SODIUM CHLORIDE 0.9% 1,000 ML IV SCH ×2 (02:30→18:14)
[2024-10-06] MEDS: IPRATROPIUM BROM 0.5 MG/2.5ML INH SOL NEB SCH (02:39)
[2024-10-06] MEDS: ALBUTEROL SULF 2.5 MG/0.5ML(0.5%) NEB SOLN NEB SCH (02:39)
[2024-10-06] MEDS: methylPREDNISolone SOD SUCC 40 MG/ML VL IV ONE (03:41)
[2024-10-06] MEDS: InsuLIN REG 1unit/0.01ml Soln (100units/ml) IV ONE ×2 (03:41→18:58)
[2024-10-06] MEDS: AZITHROMYCIN 500MG/ 250ML 250 ML IV SCH (03:54)
[2024-10-06 04:57] LABS: Base Excess 4.3 mmol/L (-2.0-3.0)
[2024-10-06] MEDS: ACCU-CHEK COMFORT CURVE STRIP VI SCH ×2 (08:00→22:00)
[2024-10-06] MEDS: InsuLIN REG 1unit/0.01ml Soln (100units/ml) SC SCH ×3 (08:59→23:24)
[2024-10-06 10:08] LABS: Opiate Scree,Urine Neg (NEGATIVE); Urine Bacteria FEW /hpf (None Seen); Urine Blood TRACE /uL (Negative); Urine Clarity Clear (Clear); Urine Color Light-Yellow (Yellow); Urine Protein, UAD Negative (Negative); Urine Specific Gravity 1.023 (1.001-1.035); Urine Squamous Epithelial Cell FEW /hpf (<5); Urine Urobilinogen Normal (Negative); Urine WBC 9 /hpf (0 - 5); Urine pH 5.5 (5.0-9.0)
[2024-10-06 10:12] LABS: Amphetamine Screen, Urine Neg (NEGATIVE); Barbiturate Scree,Urine Neg (NEGATIVE); Benzodiazephine Screen, Urine Neg (NEGATIVE); Cannabinoid Screen, Urine Neg (NEGATIVE); Cocaine Screen, Urine Neg (NEGATIVE); Phencyclidine Screen, Urine Neg (NEGATIVE)
[2024-10-06] MEDS: cefTRIAXone 1GM/50ML D5W 50 ML IV SCH (11:01)
[2024-10-06] MEDS ORDERED: LEVEMIR SC (11:07)
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
[2024-10-06] MEDS: HYDROcodone-ACET 5/325MG TAB PO PRN ×2 (11:20→18:11)
[2024-10-06] MEDS: SODIUM CHLORIDE 0.9% 500 ML IV ONE (11:30)
[2024-10-06] MEDS: MAGNESIUM SULFATE 1GM/100ML 100 ML IV SCH (18:14)
[2024-10-06] MEDS: MORPHINE SULFATE INJ 2 MG/ml SYRG IV PRN (21:26)
[2024-10-06] MEDS ORDERED: [UNRECOGNIZED DRUG - OTHER] PO SCH (22:00)
[2024-10-06] MEDS ORDERED: InsuLIN REG 1unit/0.01ml Soln (100units/ml) SC SCH (22:00)
[2024-10-06] MEDS ORDERED: ATORVASTATIN 20 MG TAB PO SCH (22:00)
[2024-10-06] MEDS: MAGNESIUM SULFATE 1GM/100ML 100 ML IV ONE ×2 (22:11→23:39)
[2024-10-06 22:26] LABS: COVID19 ANTIGEN SOFIA FIA NEGATIVE (NEGATIVE)
[2024-10-06 22:27] LABS: Rapid Influenza A Negative (Negative); Rapid Influenza B Negative (Negative)
[2024-10-06] MEDS: [UNRECOGNIZED DRUG - OTHER] PO SCH (23:26)
[2024-10-06] MEDS: ATORVASTATIN 20 MG TAB PO SCH (23:40)
[2024-10-07] VITALS (30 sets, daily range): BP systolic 92–148; BP diastolic 41–74; PULSE 78–103; RESP 16–24; TEMP 98.1–99; O2SAT 92–98
[2024-10-07] MEDS: ENOXAPARIN SOD 40 MG/0.4 ML SYRINGE SC ONE (00:30)
[2024-10-07 01:28] LABS: Potassium 3.9 mmol/L (3.5-5.1)
[2024-10-07 01:29] LABS: Anion Gap 8 (5-15)
[2024-10-07 01:34] LABS: BUN/Creatinine Ratio 20.2 (10.0-20.0)
[2024-10-07 01:43] LABS: Blood Urea Nitrogen 38 mg/dL (9-23); Calcium 10.8 mg/dL (8.7-10.4); Carbon Dioxide 32 mmol/L (20-31); Chloride 90 mmol/L (98-107); Sodium 130 mmol/L (136-145)
[2024-10-07 01:51] LABS: Glucose 647 mg/dL (74-106)
[2024-10-07] MEDS ORDERED: DEXTROSE (50%) 50ML SYRG IV PRN ×3 (02:00→15:45)
[2024-10-07] MEDS: InsuLIN REG 1unit/0.01ml Soln (100units/ml) SC SCH (02:16)
[2024-10-07] MEDS: ACCU-CHEK COMFORT CURVE STRIP VI SCH ×2 (02:16→17:04)
[2024-10-07] MEDS: HYDROcodone-ACET 7.5/325MG TAB PO PRN (05:24)
[2024-10-07 05:52] LABS: Basophils # (auto) 0 10 ^3/uL (0-0.2); Eosinophils # (auto) 0 10 ^3/uL (0-0.8); Hemoglobin 11.3 g/dL (12.2-16.2)
[2024-10-07 05:55] LABS: Basophils % (auto) 0.4 % (0.0-2.0); Eosinophils % (auto) 0.4 % (0.0-7.0); Hematocrit 36.1 % (36.0-46.0); Lymphocytes % (auto) 18.3 % (10.0-50.0); Mean Corpuscular Hemoglobin 24.7 pg (28.0-32.0); Mean Corpuscular Hgb Conc. 31.4 g/dL (32.0-36.0); Mean Corpuscular Volume 78.9 fL (80.0-100.0); Monocytes # (auto) 0.9 10 ^3/uL (0-1.3); Monocytes % (auto) 8.2 % (0.0-12.0); Neutrophils # (auto) 7.8 10 ^3/uL (1.6-8.6); Neutrophils % (auto) 72.7 % (37.0-80.0); Platelet Count (auto) 157 10^3/uL (140-450); Red Blood Cells 4.57 10^6/uL (4.0-5.20); Red Cell Distribution Width 18.8 % (11.8-14.3); White Blood Cell 10.8 10^3/uL (4.4-10.8)
[2024-10-07 06:09] LABS: Alanine Aminotransferase 22 U/L (7-40); Albumin 4.2 g/dL (3.2-4.8); Alkaline Phosphatase 71 U/L (46-116); Anion Gap 8 (5-15); Aspartate Aminotransferase 24 U/L (13-40); BUN/Creatinine Ratio 22.4 (10.0-20.0); Bilirubin, Total 0.4 mg/dL (0.2-1.0); Calcium 10.3 mg/dL (8.7-10.4); Total Protein 6.6 g/dL (5.7-8.2)
[2024-10-07] MEDS: ALBUTEROL SULF 2.5 MG/0.5ML(0.5%) NEB SOLN NEB SCH ×2 (06:09→19:37)
[2024-10-07] MEDS: IPRATROPIUM BROM 0.5 MG/2.5ML INH SOL NEB SCH ×2 (06:09→19:37)
[2024-10-07 06:24] LABS: Blood Urea Nitrogen 36 mg/dL (9-23); Carbon Dioxide 34 mmol/L (20-31); Chloride 91 mmol/L (98-107); Potassium 3.5 mmol/L (3.5-5.1); Sodium 133 mmol/L (136-145)
[2024-10-07 06:26] LABS: Glucose 556 mg/dL (74-106)
[2024-10-07] MEDS: BACLOFEN 10 MG TAB PO SCH ×2 (06:33→14:20)
[2024-10-07] MEDS: cefTRIAXone 1GM/50ML D5W 50 ML IV SCH (08:43)
[2024-10-07] MEDS: MONTELUKAST SODIUM 10 MG TAB PO SCH (09:38)
[2024-10-07] MEDS: methylPREDNISolone SOD SUCC 40 MG/ML VL IV SCH (09:38)
[2024-10-07] MEDS: INSULIN DETEMIR 100 UNIT/ML SC SCH (09:39)
[2024-10-07] MEDS ORDERED: ENOXAPARIN SOD 40 MG/0.4 ML SYRINGE SC SCH (10:00)
[2024-10-07] MEDS: ASPirin-EC 81 mg tab PO SCH (10:00)
[2024-10-07] MEDS ORDERED: methylPREDNISolone SOD SUCC 40 MG/ML VL IV SCH (10:00)
[2024-10-07] MEDS: AZITHROMYCIN 500MG/ 250ML 250 ML IV SCH (11:00)
[2024-10-07] MEDS ORDERED: INSULIN DRIP 100 UNIT/100ML 100 ML IV SCH (12:15)
[2024-10-07] MEDS ORDERED: ACCU-CHEK COMFORT CURVE STRIP VI SCH (13:30)
[2024-10-07] MEDS: PREGABALIN CAPSULE 75 MG CAP PO SCH (14:20)
[2024-10-07] MEDS: InsuLIN REG 1unit/0.01ml Soln (100units/ml) IV ONE (14:25)
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
[2024-10-07] MEDS: INSULIN DRIP 100 UNIT/100ML 100 ML IV SCH ×2 (16:01→18:00)
[2024-10-07] MEDS: medroxyPROGESTERone ACETATE 5 MG TAB PO SCH (17:23)
--- NOTE | 2024-10-07 18:46 | DVHSR ---
APPROVED REPORT EXAM: LIMITED Two-dimensional and M-mode echocardiogram with Doppler and color Doppler. Blood Pressure: 107/54 mmHg INDICATION pedal edema, HF? RISK FACTORS Height: 5'0, Weight: 370 DIMENSIONS EF (%) (55-70%)Rt. Atrium (1.9-4.0cm)Asc. Aorta2.9 cm Mitral Valve MitralMitral Stenosis E wave1.49m/sMV Mean GR.mmHg A wave1.02m/sMV Peak GR.mmHg E/A ratio1.52D MVAcm2 DECEL [id number] 1/2 [place] LEFT VENTRICLE The left ventricle is not well visualized. Not well visualized but appears grossly normal. Not well visualized. RIGHT VENTRICLE The right ventricular systolic function is normal. ATRIA The left atrium is not well visualized. The right atrium is not well visualized. MITRAL VALVE The mitral valve is grossly normal. There is no mitral valve regurgitation noted. PULMONIC VALVE The pulmonic valve is not well visualized. There is no pulmonic valvular regurgitation. TRICUSPID VALVE The tricuspid valve is not well visualized. AORTIC VALVE The aortic valve is not well visualized. No aortic regurgitation is present. PERICARDIAL EFFUSION Due to the poor quality of the echocardiogram, a pericardial effusion cannot be excluded. Other Information Quality : Technically LimitedRhythm : Technically limited study due to patient position.body habitus.pt sitting up and breathing heavy Conclusion Left ventricle is not well visualized but systolic function appears grossly normal. The right ventricular systolic function is normal. No significant valvular abnormalities of the visualized valves.
--- NOTE | 2024-10-07 23:52 | DVHINCON2 ---
Date of service: Oct 07, 2024 Referring Physician Kenya Cordova MD Reason for Consultation Acute on chronic hypoxic/hypercarbic respiratory failure History of Present Illness A 49-year-old woman with PMHx of hypertension, type 2 diabetes mellitus, asthma, undiagnosed COPD (on 2 L NC at home), dyslipidemia, seizures, questionable pulmonary hypertension type 3 who presented to the ED on 10/05/24 due to acute shortness of breath that started one day before presentation.. The patient was recently discharged a couple of weeks ago due to similar symptoms. Patient reported multiple hospitalizations in 2023 due to possible pneumonia and respiratory issues. Initial labs showed anemia which has been chronic according to previous visits, creatinine was 1.95 and BUN 35. The patient is also having severe hyperglycemia with blood glucose at 718 without anion gap elevation or metabolic acidosis excluding DKA at this time. BNP was 11.07, on normal range, and troponins negative. The patient denied chest pain, fever, chills, abdominal pain or any other symptoms. Initial chest x-ray was showing pulmonary vascular congestion without evidence of focal consolidation. Pt with chronic bilateral lower extremity 3+ pitting edema. Patient was admitted for further care and pulmonary consultation is requested for evaluation and management d/t the above findings. Review of Systems: 14-point review of systems negative unless otherwise noted above. Past Medical History: Hypertension, type 2 diabetes mellitus, asthma, undiagnosed COPD (on 2 L of oxygen through nasal cannula at home), dyslipidemia, seizures, questionable pulmonary hypertension type 3 Past Surgical History: , Tubal Ligation, carpal tunnel tendon release Medications: Reviewed. Allergies: Ibuprofen NSAIDs Oxycodone Penicillins Basaglar Ciprofloxacin Family History: CVA, heart disease, seizure disorder Social History: Former smoker. Quit (QUIT IN 2011, before that smoked for approx 13 years) Occasional alcohol use. No illicit drug use. Family History: Cerebrovascular accident (CVA) G8 MOTHER FH: heart disease Seizure disorder G8 FATHER Allergies: Coded Allergies: Ibuprofen (Verified Allergy, Unknown, 10/13/20) NSAIDs (Verified Allergy, Unknown, 12/18/22) Oxycodone (Verified Allergy, Unknown, 10/13/20) Penicillins (Verified Allergy, Unknown, 12/18/22) Uncoded Allergies: BISAGLER (Allergy, Unknown, 10/13/20) Home Meds Active Scripts Azithromycin (ZITHROMAX TABLET) 250 Mg Tb, 250 MG PO DAILY for 3 Days, #3 TAB Prov:THAIS SAGASTUME RESIDENT 09/19/24 Nystatin (Mycostatin) 1 Applic Ap, 1 APPLIC TOP BID for 7 Days, #120 APPLIC Prov:JUAN ALBERTO OLIVA MD 12/15/22 Reported Medications Insulin Detemir (Levemir) Inj, 80 UNITS SC BID, INJ 10/06/24 Insulin Detemir (Levemir) Inj, 80 SC BID, INJ 09/18/24 Meloxicam (Meloxicam) 15 Mg Tab, 1 TAB PO DAILY 12/12/22 Aspirin (Aspirin Low Dose) 81 Mg Tab, 1 TAB PO DAILY 12/12/22 Medroxyprogesterone Acetate (Medroxyprogesterone Aceta) 10 Mg Tab, 1 TAB PO DAILY 12/12/22 Hydromorphone Hcl (Dilaudid) 4 Mg Tab, 1 TAB PO TID PRN 12/12/22 Ropinirole Hydrochloride (Ropinirole Hydrochloride) 2 Mg Tab, PO 12/12/22 Cetirizine HCl (Cetirizine Hydrochloride) 10 Mg Tab, 1 TAB PO DAILY 12/12/22 Buspirone HCl (Buspirone Hydrochloride) 30 Mg Tab, 1 TAB PO BID 12/12/22 Lurasidone Hcl (LATUDA) 80 Mg Tab, 1 TAB PO 12/12/22 Baclofen (Baclofen) 20 Mg Tab, 20 12/12/22 Pregabalin (Pregabalin) 200 Mg Cap, 1 CAP PO TID 12/12/22 Methylnaltrexone Adel (Relistor) 150 Mg Tab, TAB PO 12/12/22 Ubrogepant (Ubrelvy) 100 Mg Tab, PO 12/12/22 Albuterol Sulfate (Albuterol Sulfate Hfa) 108 Mcg/Act Aer, INH 12/12/22 Ipratropium Adel Hfa (Atrovent Hfa) 17 Mcg Aer, INH 12/12/22 Morphine Sulfate (Morphine Sulfate Cr) 30 Mg Tab, 1 TAB PO BIDPRN PRN 12/12/22 Hydromorphone Hcl (Hydromorphone Hcl) 4 Mg Tab, PO 12/12/22 Oxybutynin Chloride (Oxybutynin Chloride) 5 Mg Tab, 1 TAB PO BID 3/11/23 Montelukast Sodium (MONTELUKAST SODIUM) 10 Mg Tab, 1 TAB PO DAILY 12/12/22 Ropinirole Hydrochloride (Ropinirole Hcl) 2 Mg Tab, 2 12/12/22 Rosuvastatin Calcium (Rosuvastatin Calcium) 40 Mg Tab, 1 TAB PO 12/12/22 Current Medications Current Medications Medications (Trade) Dose Ordered Sig/Prashanth Route PRN Reason Start Time Stop Time Status Last Admin Methylprednisolone Sodium Succinate (Solu Medrol) 40 mg DAILY IV 10/07/24 10:00 10/06/24 17:35 DC Azithromycin 250 ml @ 125 mls/hr DAILY IV 10/07/24 10:00 10/07/24 11:00 Ceftriaxone Sodium 50 ml @ 100 mls/hr DAILY@09 IV 10/07/24 09:00 10/07/24 08:43 Methylprednisolone Sodium Succinate (Solu Medrol) 40 mg DAILY IV 10/07/24 10:00 10/07/24 12:08 DC 10/07/24 09:38 Acetaminophen/ Hydrocodone Bitart (Thayne 7.5/325MG Tab) 1 tab Q4HP PRN PO MODERATE PAIN (4-6 PAIN SCALE) 10/07/24 00:15 10/07/24 05:24 Enoxaparin Sodium (Lovenox) 40 mg DAILY SC 10/07/24 10:00 10/07/24 06:53 DC Aspirin (Ecotrin Enteric Coated Tablet) 81 mg DAILY PO 10/07/24 10:00 Montelukast Sodium (Singulair Tablet) 10 mg DAILY PO 10/07/24 10:00 10/07/24 09:38 Baclofen (Liorisal Tablet) 5 mg Q8HR PO 10/07/24 06:00 10/07/24 07:34 DC 10/07/24 06:33 Diagnostic Test (Pha) (Accu-Chek Comfort Curve T) 1 strip IQ4HR 10/07/24 02:00 10/07/24 15:53 DC 10/07/24 12:00 Insulin Human Regular (InsuLIN R) IQ4HR SC 10/07/24 02:00 10/07/24 15:51 DC 10/07/24 12:46 Dextrose 50 ml UD PRN IV Blood Sugar LESS THAN 60 10/07/24 02:00 10/07/24 15:52 DC Patient Own Medication 85 BID SC 10/07/24 10:00 10/07/24 21:54 Baclofen (Liorisal Tablet) 20 mg Q8HR PO 10/07/24 14:00 10/07/24 21:52 Pregabalin (Lyrica Capsule) 150 mg TID PO 10/07/24 14:00 10/07/24 21:52 Medroxyprogesterone Acetate (Provera Tablet) 20 mg TID PO 10/07/24 14:00 10/07/24 21:53 Albuterol (Ventolin Medneb) 2.5 mg Q4HR NEB 10/07/24 12:15 10/07/24 22:18 Ipratropium Adel (Atrovent Medneb) 0.5 mg Q4HR NEB 10/07/24 12:15 10/07/24 22:19 Insulin Human (Reg)/Sodium Chloride 100 ml @ 0.5 mls/hr Q24H IV 10/07/24 12:15 10/07/24 15:48 DC Diagnostic Test (Pha) (Accu-Chek Comfort Curve T) 1 strip Q90MIN 10/07/24 13:30 10/07/24 15:48 DC Dextrose 50 ml PRN PRN IV BG LESS Than 70 AND CALL MD 10/07/24 12:15 10/07/24 15:49 DC Insulin Human (Reg)/Sodium Chloride 100 ml @ 0.5 mls/hr Q24H IV 10/07/24 15:45 10/07/24 18:12 DC 10/07/24 16:01 Diagnostic Test (Pha) (Accu-Chek Comfort Curve T) 1 strip Q90MIN 10/07/24 16:30 10/07/24 22:30 Dextrose 50 ml PRN PRN IV BG LESS Than 70 AND CALL MD 10/07/24 15:45 Insulin Human (Reg)/Sodium Chloride 100 ml @ 0.5 mls/hr Q24H IV 10/07/24 18:00 10/07/24 23:00 Vital Signs Vital Signs Date Time Temp Pulse Resp B/P (MAP) Pulse Ox O2 Delivery O2 Flow Rate FiO2 10/07/24 22:26 24 96 Nasal Cannula* 4 36 10/07/24 22:24 96 129/53 10/07/24 19:15 98.6 98.6 Physical Exam Gen.: Patient lying in bed in no apparent distress. On supplemental oxygen. Head: Normocephalic, atraumatic. Eyes: EOMI/PERRLA. Ears: Normal hearing. Normal anatomy. Neck/trachea: Trachea midline, supple. Nose: Normal external anatomy. Mouth: Moist mucous membranes. Chest: Decreased air entry bilaterally. No wheezing or rhonchi. Cardiovascular: Positive S1, positive S2. Regular rate and rhythm. Abdomen: Positive bowel sounds in all 4 quadrants. Soft, non-tender, non- distended. : Deferred. Rectal: Deferred. Skin: Warm, dry. Intact. Extremities: 2+ radial pulses bilaterally. No lower extremity edema. Neuro: Awake, alert, oriented x3. No gross motor or sensory deficits. Cranial nerves II through XII intact. Gait not assessed. Labs/Diagnostic Data Labs Test 10/07/24 05:00 10/06/24 21:45 10/06/24 08:52 10/06/24 08:23 Range/Units White Blood Count 10.8 4.4-10.8 10^3/uL Red Blood Count 4.57 4.0-5.20 10^6/uL Hemoglobin 11.3 L 12.2-16.2 g/dL Hematocrit 36.1 36.0-46.0 % Mean Corpuscular Volume 78.9 L 80.0-100.0 fL Mean Corpuscular Hemoglobin 24.7 L 28.0-32.0 pg Mean Corpuscular Hemoglobin Concent 31.4 L 32.0-36.0 g/dL Red Cell Distribution Width 18.8 H 11.8-14.3 % Platelet Count 157 140-450 10^3/uL Mean Platelet Volume 9.7 6.9-10.8 fL Neutrophils (%) (Auto) 72.7 37.0-80.0 % Lymphocytes (%) (Auto) 18.3 10.0-50.0 % Monocytes (%) (Auto) 8.2 0.0-12.0 % Eosinophils (%) (Auto) 0.4 0.0-7.0 % Basophils (%) (Auto) 0.4 0.0-2.0 % Neutrophils # (Auto) 7.8 1.6-8.6 10 ^3/uL Lymphocytes # (Auto) 2.0 0.4-5.4 10 ^3/uL Monocytes # (Auto) 0.9 0-1.3 10 ^3/uL Eosinophils # (Auto) 0 0-0.8 10 ^3/uL Basophils # (Auto) 0 0-0.2 10 ^3/uL Nucleated Red Blood Cells 0.0 % Sodium Level 133 L 136-145 mmol/L Potassium Level 3.5 3.5-5.1 mmol/L Chloride Level 91 L 98-107 mmol/L Carbon Dioxide Level 34 H 20-31 mmol/L Anion Gap 8 5-15 Blood Urea Nitrogen 36 H 9-23 mg/dL Creatinine 1.61 H 0.550-1.02 mg/dL Glomerular Filtration Rate Calc 39 >90 mL/min BUN/Creatinine Ratio 22.4 H 10.0-20.0 Serum Glucose 556 *H 74-106 mg/dL Calcium Level 10.3 8.7-10.4 mg/dL Total Bilirubin 0.4 0.2-1.0 mg/dL Aspartate Amino Transferase (AST) 24 13-40 U/L Alanine Aminotransferase (ALT) 22 7-40 U/L Alkaline Phosphatase 71 46-116 U/L Total Protein 6.6 5.7-8.2 g/dL Albumin 4.2 3.2-4.8 g/dL Influenza Type A Antigen Negative Negative Influenza Type B Antigen Negative Negative SARS-CoV-2 Antigen (Rapid) Negative NEGATIVE Phosphorus Level 4.0 2.4-5.1 mg/dL Triglycerides Level 703 H < 150 mg/dL Lipase 92 H 12-53 U/L Urine Color Light-yellow Yellow Urine Clarity Clear Clear Urine pH 5.5 5.0-9.0 Urine Specific [place] 1.023 1.001-1.035 Urine Protein Negative Negative Urine Ketones Negative Negative Urine Blood Trace H Negative /uL Urine Nitrite Negative Negative Urine Bilirubin Negative Negative Urine Urobilinogen Normal Negative mg/dL Urine Leukocyte Esterase Negative Negative /uL Urine RBC 1 0 - 4 /hpf Urine WBC 9 0 - 5 /hpf Urine Squamous Epithelial Cells Few <5 /hpf Urine Bacteria Few H None Seen /hpf Urine Glucose 4+ H Normal mg/dL Urine Opiates Screen Neg NEGATIVE Urine Fentanyl Screen Neg NEGATIVE Urine Barbiturates Screen Neg NEGATIVE Urine Phencyclidine Screen Neg NEGATIVE Urine Amphetamines Screen Neg NEGATIVE Urine Benzodiazepines Screen Neg NEGATIVE Urine Cocaine Screen Neg NEGATIVE Urine Cannabinoids Screen Neg NEGATIVE Test 10/06/24 04:44 10/05/24 23:00 10/05/24 21:59 10/05/24 21:55 Range/Units Blood Gas Specimen Type Arterial Blood Gas Sample Site Left radial Blood Gas Patient Temperature 37.0 Arterial Blood Date Drawn [id number] Arterial Blood pH 7.325 L 7.350-7.450 Arterial Blood Partial Pressure CO2 62.8 *H 32.0-45.0 mmHg Arterial Blood Partial Pressure O2 77.2 L 83.0-108.0 mmHg Arterial Blood HCO3 32.0 H 21.0-28.0 mmol/L Arterial Blood Oxygen Saturation 93.2 L 94.0-98.0 % Arterial Blood Base Excess 4.3 H -2.0-3.0 mmol/L Arterial Blood Oxyhemoglobin 91.7 L 94.0-98.0 % Arterial Blood Carboxyhemoglobin 1.2 0.5-1.5 % Arterial Blood Methemoglobin 0.4 0.0-1.5 % Florentino Test Yes Blood Gas Total Hemoglobin 13.00 12.0-16.0 g/dL Blood Gas Liter Flow 4.00 Blood Gas Modality Nasal cannula Blood Gas Spontaneous Rate 20 FiO2 % 36.0 Blood Gas Critical Value Read Back Yes Blood Gas Notified Whom Md. zamzam esteban Blood Gas Notified Time [id number] Blood Gas Notified By Rt jared em Troponin I High Sensitivity 8 </=34 ng/L Cholesterol Level 215 H < 200 mg/dL LDL Cholesterol < 100 mg/dL HDL Cholesterol 32 L 40-59 mg/dL Venous Blood pH 7.336 7.320-7.430 Venous Blood pCO2 at Patient Temp 62.2 *H 38.0-54.0 mmHg Venous Blood pO2 at Patient Temp 79.7 H 23.0-48.0 mmHg Venous Blood HCO3 32.5 H 22.0-29.0 mmol/L Venous Blood Base Excess 4.6 H -2.0-3.0 mmol/L Magnesium Level 1.8 1.6-2.6 mg/dL Iron Level 105 50-170 ug/dL Total Iron Binding Capacity 425 250-425 ug/dL Percent Iron Saturation 24.7 15-50 % Ferritin 24.0 10-291 ng/mL B-Type Natriuretic Peptide 11.07 0-100 pg/mL Microbiology Date/Time Source Procedure Growth Status 10/07/24 06:40 Nose MRSA Screen - Final Complete Assessment Impression: Acute on chronic hypoxic/hypercarbic respiratory failure Dependence on supplemental oxygen Hypertriglyceridemia Hyperglycemia CARIDAD/OHS Morbid obesity, BMI 78.8 Hx of nicotine dependence Plan: Supplemental oxygen 4 LPM NC Titrate to keep O2 sats between 88-94%. Taper O2 as tolerated. Insulin drip d/t hyperglycemia + hypertriglyceridemia Improving Accu-Cheks q.1 hour for glycemic monitoring BiPAP due to CARIDAD. Continue bronchodilators PRN. Monitor renal function. Monitor electrolytes. Supplement as necessary. Monitor ins and outs. Diet and lifestyle modifications for weight reduction Morbid obesity - complicates all care DVT prophylaxis. Prognosis: Poor given patient's multiple co-morbidities. Condition: Critical Rest of plan per hospitalist and other consultants. A total of 35 minutes of critical care time was spent reviewing the patient record, examining the patient, making a diagnostic and therapeutic plan, discussing this plan with the medical personnel, following up on diagnostic studies and following the patient for clinical stability excluding any and all procedures. At least 50% of this time was spent in direct, [id number] contact. Thank you, Dr. Cordova, for allowing me to participate in this patient's care. Further recommendations will depend on the patient's clinical course. Please do not hesitate to contact me if you have any questions or concerns. This medical document was created using an electronic medical record system with [employer] dictation system. Although these documentations are being carefully reviewed, there may still be some phonetic and typographical changes. The errors are purely typographical, due to imperfection on the software program, and do not reflect any compromise in the patient's medical care. Plan discussed with: Other (JUSTINE Abernathy/MD Cordova) CAMILLA BRITTON MD Oct 07, 2024 23:51
[2024-10-08] VITALS (95 sets, daily range): BP systolic 93–159; BP diastolic 38–84; PULSE 69–103; RESP 10–29; TEMP 97.8–98.8; O2SAT 87–100
[2024-10-08] MEDS ORDERED: DEXTROSE (50%) 50ML SYRG IV PRN (02:00)
[2024-10-08] MEDS: ACCU-CHEK COMFORT CURVE STRIP VI SCH (03:08)
[2024-10-08 05:39] LABS: Eosinophils # (auto) 0 10 ^3/uL (0-0.8); Hemoglobin 11.4 g/dL (12.2-16.2); Lymphocytes # (auto) 2.3 10 ^3/uL (0.4-5.4)
[2024-10-08 05:42] LABS: Basophils # (auto) 0.1 10 ^3/uL (0-0.2); Basophils % (auto) 0.6 % (0.0-2.0); Eosinophils % (auto) 0.3 % (0.0-7.0); Hematocrit 36.7 % (36.0-46.0); Lymphocytes % (auto) 23.7 % (10.0-50.0); Mean Corpuscular Hemoglobin 24.4 pg (28.0-32.0); Mean Corpuscular Hgb Conc. 31.2 g/dL (32.0-36.0); Mean Corpuscular Volume 78.3 fL (80.0-100.0); Monocytes # (auto) 0.9 10 ^3/uL (0-1.3); Monocytes % (auto) 9.5 % (0.0-12.0); Neutrophils # (auto) 6.5 10 ^3/uL (1.6-8.6); Neutrophils % (auto) 65.9 % (37.0-80.0); Platelet Count (auto) 160 10^3/uL (140-450); Red Blood Cells 4.68 10^6/uL (4.0-5.20); Red Cell Distribution Width 18.7 % (11.8-14.3); White Blood Cell 9.8 10^3/uL (4.4-10.8)
[2024-10-08 06:09] LABS: Alanine Aminotransferase 20 U/L (7-40); Alkaline Phosphatase 63 U/L (46-116); Anion Gap 8 (5-15); Aspartate Aminotransferase 20 U/L (13-40); BUN/Creatinine Ratio 27.2 (10.0-20.0); Calcium 10.3 mg/dL (8.7-10.4); Sodium 137 mmol/L (136-145)
[2024-10-08 06:10] LABS: Total Protein 6.3 g/dL (5.7-8.2)
[2024-10-08] MEDS: INSULIN DRIP 100 UNIT/100ML 100 ML IV SCH ×2 (06:16→23:00)
[2024-10-08 06:27] LABS: Carbon Dioxide 35 mmol/L (20-31); Chloride 94 mmol/L (98-107); Glucose 330 mg/dL (74-106); Potassium 3.3 mmol/L (3.5-5.1)
[2024-10-08 06:28] LABS: Bilirubin, Total 0.2 mg/dL (0.2-1.0); Blood Urea Nitrogen 34 mg/dL (9-23)
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
[2024-10-08] MEDS: POTASSIUM CHLORIDE 40 MEQ, LIDOCAINE 1% (LOCAL ANESTH.) 4 ML in SODIUM CHL 0.9% 250 ML IV ONE (09:45)
[2024-10-08 13:50] LABS: Sodium 137 mmol/L (136-145)
[2024-10-08 13:51] LABS: Anion Gap 6 (5-15)
[2024-10-08 13:56] LABS: BUN/Creatinine Ratio 27.6 (10.0-20.0)
[2024-10-08 14:02] LABS: Carbon Dioxide 38 mmol/L (20-31); Chloride 93 mmol/L (98-107)
[2024-10-08 14:03] LABS: Blood Urea Nitrogen 32 mg/dL (9-23); Calcium 10.4 mg/dL (8.7-10.4); Glucose 327 mg/dL (74-106)
[2024-10-08] MEDS ORDERED: AMIODARONE 450mg/250ml AE 250 ML IV SCH ×2 (16:15→22:15)
[2024-10-08 19:10] LABS: Potassium 3.7 mmol/L (3.5-5.1); Sodium 136 mmol/L (136-145)
[2024-10-08 19:11] LABS: Anion Gap 4 (5-15); Calcium 10.2 mg/dL (8.7-10.4)
[2024-10-08 19:16] LABS: BUN/Creatinine Ratio 26.1 (10.0-20.0)
[2024-10-08 19:21] LABS: Blood Urea Nitrogen 31 mg/dL (9-23); Carbon Dioxide 36 mmol/L (20-31); Chloride 96 mmol/L (98-107); Glucose 349 mg/dL (74-106)
[2024-10-08] MEDS: POTASSIUM CHLORIDE 60 MEQ, LIDOCAINE 1% (LOCAL ANESTH.) 6 ML in SODIUM CHL 0.9% 500 ML IV ONE (19:28)
--- NOTE | 2024-10-08 23:04 | DVHPN2 ---
Progress Note - Dictate Date Seen: Oct 08, 2024 Has the PT tested + for MRSA If YES, has PT been informed?: No Medical Necessity Reason Pt with a Central, PICC or Fol: No Subjective Patient seen and examined at bedside. Remains on supplemental oxygen Overnight events reviewed. vital signs Vital Sign Date Time Temp Pulse Resp B/P (MAP) Pulse Ox O2 Delivery O2 Flow Rate FiO2 10/08/24 22:09 80 18 99 10/08/24 22:03 Nasal Cannula 2.0 10/08/24 22:03 28 10/08/24 21:11 131/71 10/08/24 20:00 98.8 98.8 Total Intake and Output 10/07/24 10/07/24 10/08/24 15:00 23:00 07:00 Intake Total 1175 ml 566 ml Output Total 1000 ml 1475 ml Balance 175 ml -909 ml medications Current Medications Medications Dose Ordered Sig/Prashanth Route Start Time Stop Time Status Last Admin Dose Admin Azithromycin 250 ml @ 125 mls/hr DAILY IV 10/07/24 10:00 10/08/24 09:08 125 MLS/HR Atorvastatin Calcium 80 mg HS PO 10/06/24 22:00 10/08/24 21:18 80 MG Ceftriaxone Sodium 50 ml @ 100 mls/hr DAILY@09 IV 10/07/24 09:00 10/08/24 09:08 100 MLS/HR Morphine Sulfate 2 mg Q4HPRN PRN IV 10/06/24 19:15 10/08/24 20:41 2 MG Acetaminophen/ Hydrocodone Bitart 1 tab Q4HP PRN PO 10/07/24 00:15 10/08/24 17:37 1 TAB Aspirin 81 mg DAILY PO 10/07/24 10:00 Montelukast Sodium 10 mg DAILY PO 10/07/24 10:00 10/08/24 09:07 10 MG Patient Own Medication 85 BID SC 10/07/24 10:00 10/08/24 21:30 85 Baclofen 20 mg Q8HR PO 10/07/24 14:00 10/08/24 20:42 20 MG Pregabalin 150 mg TID PO 10/07/24 14:00 10/08/24 20:42 150 MG Medroxyprogesterone Acetate 20 mg TID PO 10/07/24 14:00 10/08/24 21:30 20 MG Albuterol 2.5 mg Q4HR NEB 10/07/24 12:15 10/08/24 22:03 2.5 MG Ipratropium [place] 0.5 mg Q4HR NEB 10/07/24 12:15 10/08/24 22:03 0.5 MG Dextrose 50 ml UD PRN IV 10/08/24 02:00 Diagnostic Test (Pha) 1 strip Q90MIN 10/08/24 03:00 10/08/24 21:16 1 STRIP Insulin Human (Reg)/Sodium Chloride 100 ml @ 1 mls/hr Q24H IV 10/08/24 02:00 10/08/24 15:47 16 MLS/HR Amiodarone HCl 250 ml @ 33.333 mls/ hr Q7H30M IV 10/08/24 16:15 10/08/24 22:14 UNV Amiodarone HCl 250 ml @ 16.667 mls/ hr Q15H IV 10/08/24 22:15 UNV objective Gen.: Patient lying in bed in no apparent distress. On supplemental oxygen. Head: Normocephalic, atraumatic. Eyes: EOMI/PERRLA. Ears: Normal hearing. Normal anatomy. Neck/trachea: Trachea midline, supple. Nose: Normal external anatomy. Mouth: Moist mucous membranes. Chest: Decreased air entry bilaterally. No wheezing or rhonchi. Cardiovascular: Positive S1, positive S2. Regular rate and rhythm. Abdomen: Positive bowel sounds in all 4 quadrants. Soft, non-tender, non- distended. : Deferred. Rectal: Deferred. Skin: Warm, dry. Intact. Extremities: 2+ radial pulses bilaterally. No lower extremity edema. Neuro: Awake, alert, oriented x3. No gross motor or sensory deficits. Cranial nerves II through XII intact. Gait not assessed. laboratory and microbiology Laboratory Tests 10/08/24 18:51 10/08/24 05:23 Test 10/08/24 18:51 Range/Units Serum Glucose 349 H 74-106 mg/dL Assessment/Plan Impression: Acute on chronic hypoxic/hypercarbic respiratory failure Dependence on supplemental oxygen Hypertriglyceridemia Hyperglycemia CARIDAD/OHS Morbid obesity, BMI 78.8 Events: Remains on supplemental oxygen 2 LPM NC Taper O2 as tolerated Continue insulin drip for hyperglycemia + hypertriglyceridemia Improving Accu-Cheks q.1 hour for glycemic monitoring Bronchodilators PRN BiPAP at night due to CARIDAD. Monitor renal fxn Monitor electrolytes Supplement as necessary Potassium supplementation Check mag Plan: Supplemental oxygen 4 LPM NC Titrate to keep O2 sats between 88-94%. Taper O2 as tolerated. Insulin drip d/t hyperglycemia + hypertriglyceridemia Improving Accu-Cheks for monitoring BiPAP due to CARIDAD. Continue bronchodilators PRN. Monitor renal function. Monitor electrolytes. Supplement as necessary. Monitor ins and outs. Diet and lifestyle modifications for weight reduction Morbid obesity - complicates all care DVT prophylaxis. Prognosis: Poor given patient's multiple co-morbidities. Condition: Critical Rest of plan per hospitalist and other consultants. A total of 35 minutes of critical care time was spent reviewing the patient record, examining the patient, making a diagnostic and therapeutic plan, discussing this plan with the medical personnel, following up on diagnostic studies and following the patient for clinical stability excluding any and all procedures. At least 50% of this time was spent in direct, [id number] contact. Thank you, Dr. Cordova, for allowing me to participate in this patient's care. Further recommendations will depend on the patient's clinical course. Please do not hesitate to contact me if you have any questions or concerns. This medical document was created using an electronic medical record system with [employer] dictation system. Although these documentations are being carefully reviewed, there may still be some phonetic and typographical changes. The errors are purely typographical, due to imperfection on the software program, and do not reflect any compromise in the patient's medical care. Dietary Evaluation Review Comments: 1. Continue current diet 2. Continue to adjust insulin regime 3. Consider vascepa TID for high triglycerides 4. Consider niacin and lipitor for high triglyercides Expected Outcomes/Goals: 1. Pt's labs with trend towards WNL in 3-5 days Plan discussed with: Patient, Other (RN) CAMILLA BRITTON MD Oct 08, 2024 23:04
[2024-10-09] VITALS (33 sets, daily range): BP systolic 117–158; BP diastolic 46–80; PULSE 75–107; RESP 14–22; TEMP 97.3–99.3; O2SAT 89–100
[2024-10-09 01:07] LABS: Chloride 98 mmol/L (98-107); Potassium 3.6 mmol/L (3.5-5.1); Sodium 136 mmol/L (136-145)
[2024-10-09 01:08] LABS: Anion Gap 4 (5-15)
[2024-10-09 01:14] LABS: Carbon Dioxide 34 mmol/L (20-31); Glucose 299 mg/dL (74-106)
[2024-10-09 01:41] LABS: Blood Urea Nitrogen 27 mg/dL (9-23)
[2024-10-09 06:55] LABS: Alanine Aminotransferase 18 U/L (7-40); Albumin 3.9 g/dL (3.2-4.8); Alkaline Phosphatase 60 U/L (46-116); Anion Gap 7 (5-15); Aspartate Aminotransferase 18 U/L (13-40); BUN/Creatinine Ratio 21.6 (10.0-20.0); Blood Urea Nitrogen 21 mg/dL (9-23); Calcium 10.2 mg/dL (8.7-10.4); Chloride 99 mmol/L (98-107); Potassium 3.5 mmol/L (3.5-5.1); Sodium 138 mmol/L (136-145)
[2024-10-09 06:56] LABS: Phosphorus 3.7 mg/dL (2.4-5.1); Total Protein 6.1 g/dL (5.7-8.2)
[2024-10-09 07:02] LABS: Bilirubin, Total 0.3 mg/dL (0.2-1.0); Carbon Dioxide 32 mmol/L (20-31); Glucose 195 mg/dL (74-106); Magnesium 1.6 mg/dL (1.6-2.6); Triglycerides 344 mg/dL (< 150)
[2024-10-09 07:28] LABS: Basophils # (auto) 0 10 ^3/uL (0-0.2); Basophils % (auto) 0.5 % (0.0-2.0); Eosinophils # (auto) 0.3 10 ^3/uL (0-0.8); Eosinophils % (auto) 3.9 % (0.0-7.0); Hematocrit 38.1 % (36.0-46.0); Hemoglobin 11.9 g/dL (12.2-16.2); Lymphocytes # (auto) 2.8 10 ^3/uL (0.4-5.4); Lymphocytes % (auto) 31.2 % (10.0-50.0); Mean Corpuscular Hemoglobin 24.8 pg (28.0-32.0); Mean Corpuscular Hgb Conc. 31.2 g/dL (32.0-36.0); Mean Corpuscular Volume 79.6 fL (80.0-100.0); Monocytes # (auto) 1.1 10 ^3/uL (0-1.3); Monocytes % (auto) 12.4 % (0.0-12.0); Neutrophils # (auto) 4.6 10 ^3/uL (1.6-8.6); Nucleated Red Blood Cells % 0.1 %; Platelet Count (auto) 169 10^3/uL (140-450); Red Blood Cells 4.78 10^6/uL (4.0-5.20); White Blood Cell 8.9 10^3/uL (4.4-10.8)
[2024-10-09] MEDS: D5W/LACTATED RINGERS 1,000 ML IV SCH (11:30)
[2024-10-09] MEDS ORDERED: PATIENTS OWN MEDICATION SC ONE (12:15)
[2024-10-09] MEDS ORDERED: INSULIN LANTUS (GLARGINE) 1 /0.01ml (100units/ml) SC ONE (12:30)
[2024-10-09] MEDS ORDERED: DEXTROSE (50%) 50ML SYRG IV PRN (12:30)
[2024-10-09] MEDS: PATIENTS OWN MEDICATION SC ONE (13:00)
[2024-10-09] MEDS ORDERED: PATIENTS OWN MEDICATION (Pregabalin 1 CAP) PO SCH (14:00)
[2024-10-09] MEDS: MORPHINE SULFATE INJ 2 MG/ml SYRG IV ONE (14:24)
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
[2024-10-09] MEDS: ACCU-CHEK COMFORT CURVE STRIP VI SCH (16:49)
[2024-10-09] MEDS: InsuLIN REG 1unit/0.01ml Soln (100units/ml) SC SCH (16:49)
[2024-10-09] MEDS ORDERED: INSULIN LANTUS (GLARGINE) 1 /0.01ml (100units/ml) SC SCH (22:00)
[2024-10-09] MEDS ORDERED: OXYBUTYNIN CHL 5 MG TAB PO SCH (22:00)
[2024-10-09] MEDS ORDERED: InsuLIN REG 1unit/0.01ml Soln (100units/ml) SC SCH (22:00)
[2024-10-09] MEDS ORDERED: PREGABALIN CAPSULE 75 MG CAP PO SCH (22:00)
[2024-10-09] MEDS ORDERED: busPIRone HCL 10 MG TAB PO SCH (22:00)
[2024-10-09] MEDS ORDERED: PATIENTS OWN MEDICATION SC SCH (22:00)
[2024-10-09] MEDS ORDERED: PREGABALIN 25 MG CAP PO SCH (22:00)
--- NOTE | 2024-10-09 23:03 | DVHPN2 ---
Progress Note - Dictate Date Seen: Oct 09, 2024 Has the PT tested + for MRSA If YES, has PT been informed?: No Medical Necessity Reason Pt with a Central, PICC or Fol: No Subjective Patient seen and examined at bedside. Remains on supplemental oxygen Overnight events reviewed. vital signs Vital Sign Date Time Temp Pulse Resp B/P (MAP) Pulse Ox O2 Delivery O2 Flow Rate FiO2 10/09/24 17:44 98.6 90 16 92 10/09/24 16:15 126/60 (82) 10/09/24 15:06 Facial BiPAP Mask 40 10/09/24 14:56 2 Total Intake and Output 10/08/24 10/08/24 10/09/24 15:00 23:00 07:00 Intake Total 94 ml 2032 ml 1128 ml Output Total 1700 ml 1850 ml Balance 94 ml 332 ml -722 ml medications Current Medications Medications Dose Ordered Sig/Prashanth Route Start Time Stop Time Status Last Admin Dose Admin Amiodarone HCl 250 ml @ 33.333 mls/ hr Q7H30M IV 10/08/24 16:15 10/08/24 22:14 UNV Amiodarone HCl 250 ml @ 16.667 mls/ hr Q15H IV 10/08/24 22:15 UNV objective Gen.: Patient lying in bed in no apparent distress. On supplemental oxygen. Head: Normocephalic, atraumatic. Eyes: EOMI/PERRLA. Ears: Normal hearing. Normal anatomy. Neck/trachea: Trachea midline, supple. Nose: Normal external anatomy. Mouth: Moist mucous membranes. Chest: Decreased air entry bilaterally. No wheezing or rhonchi. Cardiovascular: Positive S1, positive S2. Regular rate and rhythm. Abdomen: Positive bowel sounds in all 4 quadrants. Soft, non-tender, non- distended. : Deferred. Rectal: Deferred. Skin: Warm, dry. Intact. Extremities: 2+ radial pulses bilaterally. No lower extremity edema. Neuro: Awake, alert, oriented x3. No gross motor or sensory deficits. Cranial nerves II through XII intact. Gait not assessed. laboratory and microbiology Laboratory Tests 10/09/24 06:06 Test 10/09/24 06:06 Range/Units Serum Glucose 195 H 74-106 mg/dL Assessment/Plan Impression: Acute on chronic hypoxic/hypercarbic respiratory failure Dependence on supplemental oxygen Hypertriglyceridemia Hyperglycemia CARIDAD/OHS Morbid obesity, BMI 78.8 Hx of nicotine dependence Events: Remains on supplemental oxygen, 2 LPM NC Taper O2 as tolerated Continue bronchodilators Continue antibiotics Accu-Cheks, ISS Pain control Avoid oversedation Patient is stable for discharge from the pulmonary standpoint. Follow up in 2 weeks in Pulmonary Clinic. Labs and imaging reviewed. Rest of plan as noted below. Plan: Supplemental oxygen Titrate to keep O2 sats between 88-94%. Insulin drip d/t hyperglycemia + hypertriglyceridemia Improving Accu-Cheks q.1 hour for glycemic monitoring BiPAP due to CARIDAD. Continue bronchodilators PRN. Monitor renal function. Monitor electrolytes. Supplement as necessary. Monitor ins and outs. Diet and lifestyle modifications for weight reduction Morbid obesity - complicates all care DVT prophylaxis. Prognosis: Poor given patient's multiple co-morbidities. Rest of plan per hospitalist and other consultants. Thank you, Dr. Cordova, for allowing me to participate in this patient's care. Further recommendations will depend on the patient's clinical course. Please do not hesitate to contact me if you have any questions or concerns. This medical document was created using an electronic medical record system with [employer] dictation system. Although these documentations are being carefully reviewed, there may still be some phonetic and typographical changes. The errors are purely typographical, due to imperfection on the software program, and do not reflect any compromise in the patient's medical care. Dietary Evaluation Review Comments: 1. Continue current diet 2. Continue to adjust insulin regime 3. Consider vascepa TID for high triglycerides 4. Consider niacin and lipitor for high triglyercides Expected Outcomes/Goals: 1. Pt's labs with trend towards WNL in 3-5 days Plan discussed with: Patient, Other (RN) CAMILLA BRITTON MD Oct 09, 2024 23:03
[2024-10-10] MEDS ORDERED: medroxyPROGESTERone ACETATE 5 MG TAB PO SCH (10:00)
[2024-10-10] MEDS ORDERED: PATIENTS OWN MEDICATION SC ONE (10:00)
[2024-10-10] MEDS ORDERED: LORATADINE 10 MG TAB PO SCH (10:00)
[2024-10-10] MEDS ORDERED: LEVEMIR SC (14:26)
== END 2024-10-09 18:55 | disposition home health service (06) | DRG 133 ==
LOC: ER 21:10 → OVERFLOW 23:53 → WEST WING 10-06 23:58 → CATH ICU 10-07 14:50 → ICU CENTRL 10-08 00:45 → DOU IN ICU 10-08 06:30 → TELE-WESTW 10-09 14:45
PROVIDERS: ADMIT Student in an Organized Health Care Education/Training Program; ATTEND Student in an Organized Health Care Education/Training Program
PROC: 5A09357 Assistance with Respiratory Ventilation, Less than 24 Consecutive Hours, Continuous Positive Airway Pressure (ICD-10-PCS; principal; 2024-10-07)
PROC: 05HF33Z Insertion of Infusion Device into Left Cephalic Vein, Percutaneous Approach (ICD-10-PCS; 2024-10-07)
PROC: B54NZZA Ultrasonography of Left Upper Extremity Veins, Guidance (ICD-10-PCS; 2024-10-07)
PROC: 5A09357 Assistance with Respiratory Ventilation, Less than 24 Consecutive Hours, Continuous Positive Airway Pressure (ICD-10-PCS; 2024-10-08)
PROC: 5A09357 Assistance with Respiratory Ventilation, Less than 24 Consecutive Hours, Continuous Positive Airway Pressure (ICD-10-PCS; 2024-10-09)
DX: J96.21 Acute and chronic respiratory failure with hypoxia (principal); N17.0 Acute kidney failure with tubular necrosis; J15.69 Pneumonia due to other Gram-negative bacteria; J15.9 Unspecified bacterial pneumonia; J12.9 Viral pneumonia, unspecified; E87.29 Other acidosis; I27.20 Pulmonary hypertension, unspecified; E66.2 Morbid (severe) obesity with alveolar hypoventilation; E87.1 Hypo-osmolality and hyponatremia; J44.0 Chronic obstructive pulmonary disease with (acute) lower respiratory infection; Z20.822 Contact with and (suspected) exposure to COVID-19; J44.1 Chronic obstructive pulmonary disease with (acute) exacerbation; J45.901 Unspecified asthma with (acute) exacerbation; E87.8 Other disorders of electrolyte and fluid balance, not elsewhere classified; I12.9 Hypertensive chronic kidney disease with stage 1 through stage 4 chronic kidney disease, or unspecified chronic kidney disease; E11.22 Type 2 diabetes mellitus with diabetic chronic kidney disease; N18.2 Chronic kidney disease, stage 2 (mild); E11.65 Type 2 diabetes mellitus with hyperglycemia; E78.5 Hyperlipidemia, unspecified; D64.9 Anemia, unspecified; E78.1 Pure hyperglyceridemia; J96.22 Acute and chronic respiratory failure with hypercapnia; G89.29 Other chronic pain; E28.2 Polycystic ovarian syndrome; Z68.45 Body mass index [BMI] 70 or greater, adult; Z88.6 Allergy status to analgesic agent; Z88.5 Allergy status to narcotic agent; Z88.0 Allergy status to penicillin; Z82.3 Family history of stroke; Z83.3 Family history of diabetes mellitus; Z82.49 Family history of ischemic heart disease and other diseases of the circulatory system; Z87.891 Personal history of nicotine dependence; Z82.0 Family history of epilepsy and other diseases of the nervous system; Z99.81 Dependence on supplemental oxygen; Z79.82 Long term (current) use of aspirin; Z79.4 Long term (current) use of insulin; Z79.899 Other long term (current) drug therapy
CPT/HCPCS: 36415; 36600; 71045; 80048; 80053; 80061; 80307; 81001; 82728; 82805; 83540; 83550; 83690; 83735; 83880; 84100; 84478; 84484; 85025; 87081; 87426; 87804; 93306; 94640; 94660; 99291; G0378; J1815; J2003

== ENCOUNTER 2024-11-09 03:14 | Inpatient (IN) | payer MEDICAID ==
[2024-11-09] VITALS (8 sets, daily range): BP systolic 145–152; BP diastolic 54–59; PULSE 94–110; RESP 16–24; TEMP 98.2; O2SAT 87–99
[~2024-11-09] VITALS: Ht 154.9 cm; Wt 175.8 kg
--- NOTE | 2024-11-09 03:54 | ED.PDOC ---
SOB-HPI HPI Comments 49 year old female presents to the ED with a chief complaint of shortness of breath onset 2 days. Patient states she has been experiencing shortness of breath, chest pain, nasal congestion, body aches, cough, runny nose, fatigue, nausea for the past 2 days. She thought symptoms were secondary to seasonal allergies. Patient has used albuterol inhaler, DuoNeb Nebulizer at home, has not noticed an improvement. Upon ED arrival, patient is on 4L, O2 sat was 84%. PMHx of asthma, DM, HTN, HLD, anxiety, seizures. No other symptoms or modifying factors present at this time. Chief Complaint: Shortness of Breath Time Seen by MD: 03:28 Primary Care Provider: Chiki KRAUSE Reviewed notes: Medications, Allergies Information Source: Patient Mode of Arrival: Ambulatory Severity: Moderate Timing: Days Duration: Since onset Context: At Rest PE Risk Factors: None History of: Asthma, Anxiety Prehospital treatment: Oxygen, Treatment (albuterol, nebulizer) Modifying Factors: Nothing Associated Signs and Symptoms: Cough, Nasal Congestion, Chest Pain Quality: Pressure Radiation: No Radiation If cough with SOB: Non-Productive Vital Signs Vital Signs Date Time Temp Pulse Resp B/P (MAP) Pulse Ox O2 Delivery O2 Flow Rate FiO2 11/09/24 07:54 98.0 99 22 152/59 (90) 94 98.0 11/09/24 05:34 Nasal Cannula 6.0 11/09/24 03:58 44 Physical Exam General: Awake, alert and oriented. No acute distress. Skin: Skin in warm, dry and intact. Appropriate color for ethnicity. HEENT: The head is normocephalic and atraumatic. Conjunctivae are clear without exudates or hemorrhage. Sclera is non-icteric. EOM are intact. No signs of nystagmus. Eyelids are normal in appearance without swelling or lesions. Oral mucosa is pink and moist Neck: The neck is supple with normal range of motion. No JVD. Cardiac: Heart rate and rhythm are normal. No murmurs, gallops, or rubs are auscultated. Respiratory: No signs of respiratory distress. Wheezes noted bilaterally. Abdominal: Abdomen is soft, non-tender without distention. Bowel sounds are present and normoactive in all four quadrants. Extremities: Upper and lower extremities are atraumatic in appearance without deformity or edema. Neurological: The patient is awake, alert and oriented to person, place, and time with normal speech. Speech is clear. There is no facial asymmetry. Psychiatric: Appropriate mood and affect. Good judgement and insight. No visual or auditory hallucinations. Review of Systems: As stated in HPI Past Medical History PAST MEDICAL HISTORY: Anxiety, Asthma, DM, High Lipids, HTN, Seizures Past Medical History (Other): DDD Surgical History: , Tubal Ligation LAST TRIMMER History: Denies all LAST TRIMMER Hx Family History Family History: Reviewed,noncontributory to illness, Family hx of DM, Family hx of HTN, Family hx of stroke Social History Smoker: Quit Greater Than 1 Year Alcohol: Denies ETOH Use Drugs: Denies Drug Use Lives In: Home Was a procedure done? Was a procedure done?: No Differential Dx Differential Diagnosis: Other Comments Differential diagnoses considered includebut arenot limited to acute Bronchitis, Asthma, COPD, Pneumothorax, PE, CHF, Pulmonary HTN, Anemia, CO Poisoning, Methemoglobinemia, Hyperventilation, Metabolic Acidosis, Pulmonary Edema, Pneumonia, ACS, Pericardial Tamponade, Anxiety, other X-Ray, Labs, Meds, VS Vital Signs Date Time Temp Pulse Resp B/P (MAP) Pulse Ox O2 Delivery O2 Flow Rate FiO2 11/09/24 07:54 98.0 99 22 152/59 (90) 94 98.0 11/09/24 05:34 102 24 94 Nasal Cannula 6.0 11/09/24 05:34 99.0 102 24 118/64 (82) 94 99.0 11/09/24 03:58 20 96 Nasal Cannula* 6 44 11/09/24 03:20 98.1 108 28 145/73 (97) 87 Lab Test 11/09/24 05:53 11/09/24 05:20 11/09/24 04:00 Range/Units Blood Gas Specimen Type Arterial Blood Gas Sample Site Left radial Blood Gas Patient Temperature 37.0 Arterial Blood Date Drawn [id number] Arterial Blood pH 7.401 7.350-7.450 Arterial Blood Partial Pressure CO2 46.4 H 32.0-45.0 mmHg Arterial Blood Partial Pressure O2 68.1 L 83.0-108.0 mmHg Arterial Blood HCO3 28.2 H 21.0-28.0 mmol/L Arterial Blood Oxygen Saturation 92.0 L 94.0-98.0 % Arterial Blood Base Excess 2.7 -2.0-3.0 mmol/L Arterial Blood Oxyhemoglobin 90.3 L 94.0-98.0 % Arterial Blood Carboxyhemoglobin 1.3 0.5-1.5 % Arterial Blood Methemoglobin 0.5 0.0-1.5 % Florentino Test Yes Blood Gas Total Hemoglobin 14.00 12.0-16.0 g/dL Blood Gas Modality Nasal cannula FiO2 % 44.0 Troponin I High Sensitivity 6 7 </=34 ng/L White Blood Count 9.4 4.4-10.8 10^3/uL Red Blood Count 5.44 H 4.0-5.20 10^6/uL Hemoglobin 14.2 12.2-16.2 g/dL Hematocrit 44.6 36.0-46.0 % Mean Corpuscular Volume 82.0 80.0-100.0 fL Mean Corpuscular Hemoglobin 26.2 L 28.0-32.0 pg Mean Corpuscular Hemoglobin Concent 31.9 L 32.0-36.0 g/dL Red Cell Distribution Width 18.6 H 11.8-14.3 % Platelet Count 178 140-450 10^3/uL Mean Platelet Volume 9.2 6.9-10.8 fL Neutrophils (%) (Auto) 70.6 37.0-80.0 % Lymphocytes (%) (Auto) 16.7 10.0-50.0 % Monocytes (%) (Auto) 10.8 0.0-12.0 % Eosinophils (%) (Auto) 1.4 0.0-7.0 % Basophils (%) (Auto) 0.5 0.0-2.0 % Neutrophils # (Auto) 6.6 1.6-8.6 10 ^3/uL Lymphocytes # (Auto) 1.6 0.4-5.4 10 ^3/uL Monocytes # (Auto) 1.0 0-1.3 10 ^3/uL Eosinophils # (Auto) 0.1 0-0.8 10 ^3/uL Basophils # (Auto) 0 0-0.2 10 ^3/uL Nucleated Red Blood Cells 0.1 % Sodium Level 133 L 136-145 mmol/L Potassium Level 3.5 3.5-5.1 mmol/L Chloride Level 90 L 98-107 mmol/L Carbon Dioxide Level 34 H 20-31 mmol/L Anion Gap 9 5-15 Blood Urea Nitrogen 31 H 9-23 mg/dL Creatinine 1.12 H 0.550-1.02 mg/dL Glomerular Filtration Rate Calc 61 >90 mL/min BUN/Creatinine Ratio 27.7 H 10.0-20.0 Serum Glucose 346 H 74-106 mg/dL Hemoglobin A1c 12.1 H <5.7 % A1C Calcium Level 10.2 8.7-10.4 mg/dL Total Bilirubin 0.5 0.2-1.0 mg/dL Aspartate Amino Transferase (AST) 29 13-40 U/L Alanine Aminotransferase (ALT) 24 7-40 U/L Alkaline Phosphatase 83 46-116 U/L B-Type Natriuretic Peptide 2.92 0-100 pg/mL Total Protein 6.5 5.7-8.2 g/dL Albumin 4.6 3.2-4.8 g/dL Current Medications Medications (Trade) Dose Ordered Sig/Prashanth Route Start Time Stop Time Status Last Admin Albuterol (Ventolin Medneb) 2.5 mg ONCE ONCE NEB 11/09/24 03:45 11/09/24 03:46 DC 11/09/24 03:57 Ipratropium [place] (Atrovent Medneb) 0.5 mg ONCE ONCE NEB 11/09/24 03:45 11/09/24 03:46 DC 11/09/24 03:57 Dexamethasone Sodium Phosphate (Decadron Injection) 10 mg ONCE ONCE IM 11/09/24 03:45 11/09/24 03:46 DC 11/09/24 05:21 [place] [id number] Ph: [phone] DIAGNOSTIC IMAGING Diagnostic Imaging Report : [id number] Signed PATIENT: TESSA MTZ ACCT: [id number] UNIT: [id number] : 1975 LOC: ER ROOM / BED: / AGE / SEX: 49 / F ADM STATUS: REG ER SERVICE [id number] ORDERING PHYSICIAN: SUDHAKAR NARVAEZ MD PROCEDURE(s): CXR1 - CHEST XRAY 1 VIEW REASON: cp ORDER NUMBER(s): [id number], ACCESSION NUMBER(s): [id number] EXAM: XR Chest, 1 View CLINICAL INDICATION: cp TECHNIQUE: Frontal view of the chest. COMPARISON: XY CHEST PORTABLE on DOS: 10/05/24, XY CHEST XRAY 1 VIEW on DOS: 09/18/24, XY CHEST PORTABLE on DOS: 09/17/24, XY CHEST PORTABLE on DOS: 12/18/22, XY CHEST PORTABLE on DOS: 12/12/22 FINDINGS: LUNGS AND PLEURAL SPACES: Mild pulmonary congestion. No consolidation. No pneumothorax. HEART: Unremarkable. No cardiomegaly. MEDIASTINUM: Unremarkable. Normal mediastinal contour. BONES/JOINTS: Unremarkable. No acute fracture. OTHER FINDINGS: . None. . .. IMPRESSION: Mild pulmonary congestion. ATED BY: RIOS CANTU MD DICTATED DATE/TIME: 11/09/24508 SIGNED BY: RIOS CANTU MD SIGNED DATE/TIME: 11/09/24508 CC: Time of 1ST Reevaluation: 03:58 Reevaluation 1ST: Unchanged Patient Education/Counseling: Diagnosis, Treatment, Prognosis Family Education/Counseling: No Family Present Additional Information The following tests were ordered, and results were reviewed by me: EKG-x3, CBC, CMP,BNP, RSV. RAPID INFLUENZA A&B, COVID, XY CHEST, BLOOD ALCOHOL, TROP-x3 I reviewed and agreed with the following test results read by other providers: CLAUDIO CHEST I discussed treatment and results with medical personnel and patient Departure 1 Departure Time of Disposition: 05:37 Impression: Primary Impression: Shortness of breath Additional Impression: Asthma exacerbation Disposition: ADMITTED INPATIENT Condition: Stable Comments 49-year-old female who presents to the emergency department with wheezing, chest tightness and shortness of breath. She has a history of asthma, requiring more oxygen than usual. DuoNeb, steroids administered in the ED. Patient admitted for further treatment, evaluation and monitoring. Critical Care Note Critical Care Time?: No Stability Stability form required: No Heart Score Heart Score: Heart Score Response (Comments) Value History N/A 0 EKG N/A 0 Age N/A 0 Risk Factors N/A 0 Troponin N/A 0 Total 0 I personally scribed for SUDHAKAR NARVAEZ MD ([email or web address]) on 11/09/24 at 03:54. Electronically submitted by Patricia Dumont ([email or web address]). I personally scribed for SUDHAKAR NARVAEZ MD ([email or web address]) on 11/09/24 at 04:19. Electronically submitted by Patricia Dumont ([email or web address]). I personally scribed for SUDHAKAR NARVAEZ MD ([email or web address]) on 11/09/24 at 05:20. Electronically submitted by Patricia Dumont ([email or web address]). SUDHAKAR NARVAEZ MD Nov 09, 2024 03:54
[2024-11-09] MEDS: ALBUTEROL SULF 2.5 MG/0.5ML(0.5%) NEB SOLN NEB ONE (03:57)
[2024-11-09] MEDS: IPRATROPIUM BROM 0.5 MG/2.5ML INH SOL NEB ONE (03:57)
[2024-11-09 04:33] LABS: Basophils # (auto) 0 10 ^3/uL (0-0.2); Eosinophils # (auto) 0.1 10 ^3/uL (0-0.8); Lymphocytes # (auto) 1.6 10 ^3/uL (0.4-5.4)
[2024-11-09 04:36] LABS: Basophils % (auto) 0.5 % (0.0-2.0); Eosinophils % (auto) 1.4 % (0.0-7.0); Hematocrit 44.6 % (36.0-46.0); Hemoglobin 14.2 g/dL (12.2-16.2); Lymphocytes % (auto) 16.7 % (10.0-50.0); Mean Corpuscular Hemoglobin 26.2 pg (28.0-32.0); Mean Corpuscular Hgb Conc. 31.9 g/dL (32.0-36.0); Monocytes % (auto) 10.8 % (0.0-12.0); Neutrophils # (auto) 6.6 10 ^3/uL (1.6-8.6); Neutrophils % (auto) 70.6 % (37.0-80.0); Nucleated Red Blood Cells % 0.1 %; Platelet Count (auto) 178 10^3/uL (140-450); Red Blood Cells 5.44 10^6/uL (4.0-5.20); Red Cell Distribution Width 18.6 % (11.8-14.3); White Blood Cell 9.4 10^3/uL (4.4-10.8)
[2024-11-09 04:45] LABS: Alanine Aminotransferase 24 U/L (7-40); Albumin 4.6 g/dL (3.2-4.8); Alkaline Phosphatase 83 U/L (46-116); Anion Gap 9 (5-15); Aspartate Aminotransferase 29 U/L (13-40); BUN/Creatinine Ratio 27.7 (10.0-20.0); Calcium 10.2 mg/dL (8.7-10.4)
[2024-11-09 04:46] LABS: Bilirubin, Total 0.5 mg/dL (0.2-1.0); Total Protein 6.5 g/dL (5.7-8.2)
[2024-11-09 04:51] LABS: Blood Urea Nitrogen 31 mg/dL (9-23); Carbon Dioxide 34 mmol/L (20-31); Chloride 90 mmol/L (98-107); Glucose 346 mg/dL (74-106); Potassium 3.5 mmol/L (3.5-5.1); Sodium 133 mmol/L (136-145)
--- NOTE | 2024-11-09 05:11 | DVH ---
EXAM: XR Chest, 1 View CLINICAL INDICATION: cp TECHNIQUE: Frontal view of the chest. COMPARISON: XY CHEST PORTABLE on DOS: 10/05/24, XY CHEST XRAY 1 VIEW on DOS: 09/18/24, XY CHEST MICHELLE BLE on DOS: 09/17/24, XY CHEST PORTABLE on DOS: 12/18/22, XY CHEST PORTABLE on DOS: 12/12/22 FINDINGS: LUNGS AND PLEURAL SPACES: Mild pulmonary congestion. No consolidation. No pneumothorax. HEART: Unremarkable. No cardiomegaly. MEDIASTINUM: Unremarkable. Normal mediastinal contour. BONES/JOINTS: Unremarkable. No acute fracture. OTHER FINDINGS: . None. . .. IMPRESSION: Mild pulmonary congestion.
[2024-11-09] MEDS: DexAMETHasone SOD PHOS 10MG/1ML VIAL INJ IM ONE (05:21)
[2024-11-09 05:59] LABS: Base Excess 2.7 mmol/L (-2.0-3.0)
[2024-11-09] MEDS ORDERED: IPRATROPIUM BROM 0.5 MG/2.5ML INH SOL NEB PRN (08:15)
[2024-11-09] MEDS ORDERED: DEXTROSE (50%) 50ML SYRG IV PRN (08:15)
[2024-11-09] MEDS ORDERED: ONDANSETRON HCL 4 MG/2 ML VIAL IV PRN (08:15)
[2024-11-09] MEDS ORDERED: ALBUTEROL SULF 2.5 MG/0.5ML(0.5%) NEB SOLN NEB PRN (08:15)
[2024-11-09] MEDS: SODIUM CHLORIDE 0.9% 1,000 ML IV SCH (08:15)
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
[2024-11-09 08:56] LABS: COVID19 ANTIGEN SOFIA FIA NEGATIVE (NEGATIVE); Rapid Influenza A Negative (Negative); Rapid Influenza B Negative (Negative)
[2024-11-09] MEDS ORDERED: cefTRIAXone 1GM/50ML D5W 50 ML IV SCH (09:00)
[2024-11-09] MEDS: IPRATROPIUM BROM 0.5 MG/2.5ML INH SOL NEB SCH (09:49)
[2024-11-09] MEDS: ALBUTEROL SULF 2.5 MG/0.5ML(0.5%) NEB SOLN NEB SCH (09:49)
[2024-11-09] MEDS: ENOXAPARIN SOD 40 MG/0.4 ML SYRINGE SC SCH (10:49)
[2024-11-09 10:55] LABS: Urine Bacteria FEW /hpf (None Seen); Urine Blood 1+ /uL (Negative); Urine Color Light-Yellow (Yellow); Urine Protein, UAD 1+ (Negative); Urine Specific Gravity 1.013 (1.001-1.035); Urine Squamous Epithelial Cell FEW /hpf (<5); Urine Urobilinogen Normal (Negative); Urine WBC 598 /HPF (0-5); Urine WBC Clumps PRESENT /hpf (None Seen); Urine pH 5.5 (5.0-9.0)
[2024-11-09 10:56] LABS: Urine Clarity Cloudy (Clear)
[2024-11-09] MEDS ORDERED: VANCOMYCIN PER PHARMACY 0 MG IV SCH (13:00)
[2024-11-09] MEDS: ACETAMINOPHEN 325 MG TAB PO PRN (14:38)
[2024-11-09] MEDS: methylPREDNISolone SOD SUCC 40 MG/ML VL IV SCH (15:50)
[2024-11-09] MEDS: cefTRIAXone 1GM/50ML D5W 50 ML IV ONE (15:50)
[2024-11-09] MEDS: VANCOMYCIN 1GM/250ML KIT 250 ML IV ONE (16:22)
[2024-11-09] MEDS: InsuLIN REG 1unit/0.01ml Soln (100units/ml) SC SCH ×2 (16:40→22:20)
[2024-11-09] MEDS: ACCU-CHEK COMFORT CURVE STRIP VI SCH (16:40)
[2024-11-09] MEDS: HYDROcodone-ACET 5/325MG TAB PO ONE (16:54)
[2024-11-10] VITALS (15 sets, daily range): BP systolic 129–155; BP diastolic 57–73; PULSE 97–110; RESP 16–22; TEMP 98.7; O2SAT 91–99
[2024-11-10] MEDS ORDERED: DEXTROSE (50%) 50ML SYRG IV PRN ×2 (01:30→17:45)
[2024-11-10] MEDS: VANCOMYCIN 1,000 MG in SODIUM CHL 0.9% 250 ML IV SCH (02:00)
[2024-11-10] MEDS: HYDROcodone-ACET 10/325MG TAB PO PRN (03:42)
[2024-11-10] MEDS: ACCU-CHEK COMFORT CURVE STRIP VI SCH ×2 (04:25→18:00)
[2024-11-10] MEDS: InsuLIN REG 1unit/0.01ml Soln (100units/ml) SC SCH (04:39)
[2024-11-10] MEDS: INSULIN LANTUS (GLARGINE) 1 /0.01ml (100units/ml) SC ONE (04:41)
[2024-11-10 05:52] LABS: Basophils # (auto) 0 10 ^3/uL (0-0.2); Eosinophils # (auto) 0 10 ^3/uL (0-0.8); Hemoglobin 13.9 g/dL (12.2-16.2); Lymphocytes # (auto) 0.7 10 ^3/uL (0.4-5.4); Monocytes # (auto) 0.5 10 ^3/uL (0-1.3)
[2024-11-10 05:55] LABS: Basophils % (auto) 0.1 % (0.0-2.0); Hematocrit 43.1 % (36.0-46.0); Lymphocytes % (auto) 6.4 % (10.0-50.0); Mean Corpuscular Hemoglobin 26.8 pg (28.0-32.0); Mean Corpuscular Hgb Conc. 32.3 g/dL (32.0-36.0); Monocytes % (auto) 4.4 % (0.0-12.0); Neutrophils # (auto) 9.3 10 ^3/uL (1.6-8.6); Neutrophils % (auto) 89.1 % (37.0-80.0); Platelet Count (auto) 183 10^3/uL (140-450); Red Blood Cells 5.19 10^6/uL (4.0-5.20); Red Cell Distribution Width 19.2 % (11.8-14.3); White Blood Cell 10.5 10^3/uL (4.4-10.8)
[2024-11-10 06:15] LABS: Alanine Aminotransferase 23 U/L (7-40); Alkaline Phosphatase 77 U/L (46-116); Anion Gap 13 (5-15); Aspartate Aminotransferase 20 U/L (13-40); BUN/Creatinine Ratio 26.3 (10.0-20.0); Bilirubin, Total 0.5 mg/dL (0.2-1.0); Calcium 10.4 mg/dL (8.7-10.4); Potassium 3.8 mmol/L (3.5-5.1); Total Protein 7.3 g/dL (5.7-8.2)
[2024-11-10 06:18] LABS: Albumin 4.9 g/dL (3.2-4.8); Blood Urea Nitrogen 41 mg/dL (9-23); Carbon Dioxide 31 mmol/L (20-31); Chloride 86 mmol/L (98-107); Sodium 130 mmol/L (136-145)
[2024-11-10 06:19] LABS: Glucose 554 mg/dL (74-106)
[2024-11-10] MEDS ORDERED: cefTRIAXone 1GM/50ML D5W 50 ML IV SCH (09:00)
[2024-11-10] MEDS: HYDROmorphone HCL 2 MG/ML VL/or syr ONE (09:57)
[2024-11-10] MEDS: HYDROMORPHONE HCL 1 MG/ML INJ IV PRN (09:57)
[2024-11-10] MEDS ORDERED: INSULIN LANTUS (GLARGINE) 1 /0.01ml (100units/ml) SC SCH ×2 (10:00→22:00)
[2024-11-10] MEDS: cefTRIAXone 1GM/50ML D5W 50 ML IV SCH (10:29)
[2024-11-10] MEDS: SODIUM CHLORIDE 0.9% 1,000 ML IV SCH (11:00)
--- NOTE | 2024-11-10 11:39 | DVH ---
EXAM: XY CHEST XRAY 1 VIEW Indication: hypoxia Technique: Single frontal view of the chest was obtained Comparison: XY CHEST XRAY 1 VIEW on DOS: 11/09/24, XY CHEST PORTABLE on DOS: 10/05/24, XY CHEST XRAY 1 EW on DOS: 09/18/24, XY CHEST PORTABLE on DOS: 09/17/24, XY CHEST PORTABLE on DOS: 12/18/22 FINDINGS: Lines and Tubes: None Lungs: No focal consolidation. Mild pulmonary vascular congestion. Pleura: No effusion. No pneumothorax. Cardiomediastinal contours: Unremarkable Bones: No acute osseous abnormality. IMPRESSION: Mild pulmonary vascular congestion, unchanged.
[2024-11-10] MEDS: InsuLIN REG 1unit/0.01ml Soln (100units/ml) IV ONE ×2 (12:18→13:22)
--- NOTE | 2024-11-10 12:29 | DVHPN2 ---
Subjective Patient continues to report having some shortness of breath Reviewed: Care Plan, H&P, Labs, Medications Changes from previous H/P or p: No Changes General: Per HPI Eyes: No Pain, No Vision change, No Conjunctivae inflammation, No Eyelid inflammation, No Other, No Redness ENT: No Ear pain, No Ear discharge, No Nose pain, No Nose discharge, No Nose congestion, No Mouth pain, No Mouth swelling, No Throat pain, No Throat swelling, No Other Cardiovascular: No Chest Pain, No Palpitations, No Orthopnea, No Paroxysmal Noc. Dyspnea, No Edema, No Lt Headedness, No Other Respiratory: No Cough, No Dry; Shortness of breath; No SOB with excertion, No Wheezing, No Hemoptysis, No Pleuritic Pain, No Sputum, No Other Gastrointestinal: No Nausea, No Vomiting, No Abdominal Pain, No Diarrhea, No Constipation, No Melena, No Hematochezia, No Other Genitourinary: No Dysuria, No Frequency, No Incontinence, No Hematuria, No Retention; Other (Oliguria) Musculoskeletal: No other, No neck pain, No shoulder pain, No arm pain, No back pain, No hand pain, No leg pain, No foot pain Skin: No Rash, No Lesions, No Jaundice, No Bruising, No Other Objective Vitals Vital Signs Date Time Temp Pulse Resp B/P (MAP) Pulse Ox O2 Delivery O2 Flow Rate FiO2 11/10/24 10:23 107 20 126/48 11/10/24 10:00 90 11/10/24 09:32 Nasal Cannula 3.0 11/10/24 09:32 32 11/10/24 09:15 97.6 97.6 Intake/Output Intake and Output 11/10/24 07:00 Intake Total 300 ml Balance 300 ml Intake IV Total 300 ml General Appearance: Alert, Oriented X3, Cooperative, No acute distress HEENT: Atraumatic, PERRLA Lungs: Clear to auscultation, Normal air movement Cardiovascular: Normal S1, Normal S2 Abdomen: Normal bowel sounds, Soft, No tenderness, No hepatospenomegaly, No masses Genitourinary: No Apparent Abnormalities Back: Flank Tenderness, Midline Tenderness Neuro: Normal gait, Normal speech Psych/Mental Status: Mental status NL, Mood NL Medications Current Medications Medications Dose Ordered Sig/Prashanth Route Start Time Stop Time Status Last Admin Dose Admin Ondansetron HCl 4 mg Q4HP PRN IV 11/09/24 08:15 Enoxaparin Sodium 40 mg DAILY SC 11/09/24 10:00 11/10/24 08:30 40 MG Acetaminophen 650 mg Q6HP PRN PO 11/09/24 08:15 11/09/24 20:53 650 MG Albuterol 2.5 mg Q4HWA NEB 11/09/24 10:00 11/10/24 09:32 2.5 MG Albuterol 2.5 mg Q2HPRN PRN NEB 11/09/24 08:15 Ipratropium [place] 0.5 mg Q4HWA NEB 11/09/24 10:00 11/10/24 09:32 0.5 MG Ipratropium [place] 0.5 mg Q2HPRN PRN NEB 11/09/24 08:15 Ceftriaxone Sodium 50 ml @ 100 mls/hr DAILY@09 IV 11/10/24 09:00 Cancel Ceftriaxone Sodium 50 ml @ 50 mls/hr DAILY IV 11/10/24 10:00 11/10/24 10:29 50 MLS/HR Diagnostic Test (Pha) 1 strip IQ4HR 11/10/24 04:00 11/10/24 12:03 1 STRIP Insulin Human Regular IQ4HR SC 11/10/24 04:00 11/10/24 08:31 20 UNITS Dextrose 50 ml UD PRN IV 11/10/24 01:30 Acetaminophen/ Hydrocodone Bitart 1 tab Q6HP PRN PO 11/10/24 02:15 11/10/24 03:42 1 TAB Hydromorphone HCl 1 mg Q4HPRN PRN IV 11/10/24 02:15 11/10/24 09:57 1 MG Methylprednisolone Sodium Succinate 40 mg DAILY IV 11/11/24 10:00 Sodium Chloride 1,000 ml @ 100 mls/hr Q10H IV 11/10/24 11:00 11/10/24 20:59 11/10/24 11:00 100 MLS/HR Laboratory Results Laboratory Tests 11/10/24 05:15 Chemistry Test 11/10/24 05:15 Albumin 4.9 g/dL (3.2-4.8) H Calcium Level 10.4 mg/dL (8.7-10.4) Total Protein 7.3 g/dL (5.7-8.2) LFT Test 11/10/24 05:15 Alanine Aminotransferase (ALT) 23 U/L (7-40) Alkaline Phosphatase 77 U/L (46-116) Aspartate Amino Transferase (AST) 20 U/L (13-40) Total Bilirubin 0.5 mg/dL (0.2-1.0) Urinalysis Test 11/09/24 10:30 Urine Color Light-yellow (Yellow) Urine Clarity Cloudy (Clear) H Urine pH 5.5 (5.0-9.0) Urine Specific [place] 1.013 (1.001-1.035) Urine Protein 1+ (Negative) H Urine Ketones Negative (Negative) Urine Blood 1+ /uL (Negative) H Urine Nitrite Negative (Negative) Urine Bilirubin Negative (Negative) Urine Urobilinogen Normal mg/dL (Negative) Urine Leukocyte Esterase 3+ /uL (Negative) Urine RBC 3 /hpf (0 - 4) Urine WBC Clumps Present /hpf (None Seen) Urine Microscopic WBC 598 /HPF (0-5) H Urine Squamous Epithelial Cells Few /hpf (<5) Urine Bacteria Few /hpf (None Seen) H Urine Glucose 3+ mg/dL (Normal) H Labs and/or images reviewed: Labs reviewed by me, Image(s) reviewed by me Assessment/Plan Assessment/Plan Impression: -acute on chronic hypoxic respiratory failure -UTI -morbid obesity -type 1 diabetes mellitus, severely uncontrolled with sugars remaining greater than 500 -COPD with probable exacerbation -seizure disorder -anxiety disorder Plan: -patient was blood sugars has been severely uncontrolled since being in the hospital. Apparently, the patient has multiple allergies to long-acting insulin and is only able to take Levemir. Patient also has her insulin pump currently connected, with the patient unknown with the dose is. Instructed patient was stopped insulin pump. -continue q.4 coverage -insulin 10 units IV x1 -start Levemir 30 units b.i.d. -continue current antibiotic therapy -gentle IV hydration -bronchodilators -repeat labs in a.m. Total time spent with patient discussing and formulating plan of care: 35 minutes. This medical document was created using an electronic medical record system with [employer] system. Although this document has been carefully reviewed, there may still be some phonetic and typographical errors. These areas are purely typographical due to imperfections of the software programs, and do not reflect any compromise in the patient's medical care. Plan discussed with: Patient, Other (RN) My Orders Orders - RANDA ZARATE NP Procedure Category Date Status Time Chest Xray 1 View XY 11/10/24 Resulted 10:52 Sodium Chloride 0.9% PHA 11/10/24 In Process 11:00 (Nf) Levimir PHA 11/10/24 Logged 22:00 Basic Metabolic Panel LAB 11/11/24 Verified 04:00 Urine Bacterial LAURENCE 11/10/24 Logged Culture 12:21 Date of Service: Nov 10, 2024 Billing Provider: RANDA ZARATE NP Common Visit Codes: [id number] INP/OBS CARE(HIGH) RANDA ZARATE NP Nov 10, 2024 12:29
[2024-11-10 17:14] LABS: Anion Gap 12 (5-15)
[2024-11-10 17:19] LABS: BUN/Creatinine Ratio 27.3 (10.0-20.0)
[2024-11-10 17:22] LABS: Blood Urea Nitrogen 48 mg/dL (9-23); Carbon Dioxide 31 mmol/L (20-31); Chloride 87 mmol/L (98-107); Sodium 130 mmol/L (136-145)
[2024-11-10 17:30] LABS: Glucose 571 mg/dL (74-106)
--- NOTE | 2024-11-10 17:40 | CODING ---
Date of Service: Nov 10, 2024 Billing Provider: RANDA ZARATE NP Common Visit Codes: [id number] CARE 30-74 MIN RANDA ZARATE NP Nov 10, 2024 17:39
[2024-11-10] MEDS: INSULIN DRIP 100 UNIT/100ML 100 ML IV SCH (18:45)
[2024-11-10] MEDS: busPIRone HCL 10 MG TAB PO SCH (20:51)
[2024-11-10] MEDS: PREGABALIN 200 MG PO SCH (20:52)
[2024-11-10] MEDS: OXYBUTYNIN CHL 5 MG TAB PO SCH (20:52)
[2024-11-10] MEDS: PREGABALIN CAPSULE 75 MG CAP PO SCH (22:00)
[2024-11-10] MEDS: PREGABALIN 25 MG CAP PO SCH (22:00)
[2024-11-11] VITALS (20 sets, daily range): BP systolic 107–144; BP diastolic 47–73; PULSE 91–117; RESP 16–26; TEMP 98.6; O2SAT 66–98
[2024-11-11] MEDS: INSULIN DRIP 100 UNIT/100ML 100 ML IV SCH ×2 (03:56→08:37)
[2024-11-11 07:19] LABS: Basophils # (auto) 0 10 ^3/uL (0-0.2); Eosinophils # (auto) 0 10 ^3/uL (0-0.8); Hemoglobin 12.7 g/dL (12.2-16.2); Lymphocytes # (auto) 1.6 10 ^3/uL (0.4-5.4)
[2024-11-11 07:22] LABS: Basophils % (auto) 0.3 % (0.0-2.0); Eosinophils % (auto) 0.1 % (0.0-7.0); Hematocrit 39.8 % (36.0-46.0); Lymphocytes % (auto) 11.7 % (10.0-50.0); Mean Corpuscular Hemoglobin 26.5 pg (28.0-32.0); Mean Corpuscular Hgb Conc. 31.9 g/dL (32.0-36.0); Mean Corpuscular Volume 83.1 fL (80.0-100.0); Monocytes # (auto) 1.7 10 ^3/uL (0-1.3); Monocytes % (auto) 12.5 % (0.0-12.0); Neutrophils % (auto) 75.4 % (37.0-80.0); Nucleated Red Blood Cells % 0.1 %; Platelet Count (auto) 170 10^3/uL (140-450); Red Blood Cells 4.79 10^6/uL (4.0-5.20); Red Cell Distribution Width 18.6 % (11.8-14.3); White Blood Cell 13.3 10^3/uL (4.4-10.8)
[2024-11-11 07:36] LABS: Anion Gap 8 (5-15); Calcium 9.8 mg/dL (8.7-10.4)
[2024-11-11 07:37] LABS: Carbon Dioxide 33 mmol/L (20-31); Chloride 93 mmol/L (98-107); Potassium 3.5 mmol/L (3.5-5.1); Sodium 134 mmol/L (136-145)
[2024-11-11 07:41] LABS: BUN/Creatinine Ratio 29.7 (10.0-20.0)
[2024-11-11 07:44] LABS: Blood Urea Nitrogen 44 mg/dL (9-23); Glucose 361 mg/dL (74-106)
[2024-11-11] MEDS ORDERED: methylPREDNISolone SOD SUCC 40 MG/ML VL IV SCH (10:00)
[2024-11-11] MEDS ORDERED: ASPirin-EC 81 mg tab PO SCH (10:00)
[2024-11-11] MEDS: MONTELUKAST SODIUM 10 MG TAB PO SCH (11:14)
[2024-11-11] MEDS: MEGESTROL ACETATE 20 MG TAB PO SCH (11:42)
--- NOTE | 2024-11-11 13:00 | DVHPN2 ---
Subjective on bipap with own nasal mask, insulin drip running. i reviewed her insulin pump. Reviewed: Care Plan, H&P, Labs, Medications Changes from previous H/P or p: No Changes General: Per HPI Eyes: No Pain, No Vision change, No Conjunctivae inflammation, No Eyelid inflammation, No Other, No Redness ENT: No Ear pain, No Ear discharge, No Nose pain, No Nose discharge, No Nose congestion, No Mouth pain, No Mouth swelling, No Throat pain, No Throat swelling, No Other Cardiovascular: No Chest Pain, No Palpitations, No Orthopnea, No Paroxysmal Noc. Dyspnea, No Edema, No Lt Headedness, No Other Respiratory: No Cough, No Dry; Shortness of breath; No SOB with excertion, No Wheezing, No Hemoptysis, No Pleuritic Pain, No Sputum, No Other Gastrointestinal: No Nausea, No Vomiting, No Abdominal Pain, No Diarrhea, No Constipation, No Melena, No Hematochezia, No Other Genitourinary: No Dysuria, No Frequency, No Incontinence, No Hematuria, No Retention; Other (Oliguria) Musculoskeletal: No other, No neck pain, No shoulder pain, No arm pain, No back pain, No hand pain, No leg pain, No foot pain Skin: No Rash, No Lesions, No Jaundice, No Bruising, No Other Objective Vitals Vital Signs Date Time Temp Pulse Resp B/P (MAP) Pulse Ox O2 Delivery O2 Flow Rate FiO2 11/11/24 12:00 51 11/11/24 11:52 117/66 66 Nasal BiPAP Mask 40 11/11/24 11:21 17 11/11/24 10:21 4 11/11/24 00:00 98.6 98.6 Intake/Output Intake and Output 11/11/24 07:00 Intake Total 484 ml Balance 484 ml Intake IV Total 484 ml General Appearance: Alert, Oriented X3, Cooperative, No acute distress HEENT: Atraumatic, PERRLA Lungs: Clear to auscultation, Normal air movement Cardiovascular: Normal S1, Normal S2 Abdomen: Normal bowel sounds, Soft, No tenderness, No hepatospenomegaly, No masses Genitourinary: No Apparent Abnormalities Back: Flank Tenderness, Midline Tenderness Neuro: Normal gait, Normal speech Psych/Mental Status: Mental status NL, Mood NL Medications Current Medications Medications Dose Ordered Sig/Prashanth Route Start Time Stop Time Status Last Admin Dose Admin Ondansetron HCl 4 mg Q4HP PRN IV 11/09/24 08:15 Enoxaparin Sodium 40 mg DAILY SC 11/09/24 10:00 11/10/24 08:30 40 MG Acetaminophen 650 mg Q6HP PRN PO 11/09/24 08:15 11/09/24 20:53 650 MG Albuterol 2.5 mg Q4HWA NEB 11/09/24 10:00 11/11/24 10:18 2.5 MG Albuterol 2.5 mg Q2HPRN PRN NEB 11/09/24 08:15 Ipratropium [place] 0.5 mg Q4HWA NEB 11/09/24 10:00 11/11/24 10:18 0.5 MG Ipratropium [place] 0.5 mg Q2HPRN PRN NEB 11/09/24 08:15 Ceftriaxone Sodium 50 ml @ 100 mls/hr DAILY@09 IV 11/10/24 09:00 Cancel Ceftriaxone Sodium 50 ml @ 50 mls/hr DAILY IV 11/10/24 10:00 11/11/24 11:27 50 MLS/HR Acetaminophen/ Hydrocodone Bitart 1 tab Q6HP PRN PO 11/10/24 02:15 11/11/24 06:46 1 TAB Hydromorphone HCl 1 mg Q4HPRN PRN IV 11/10/24 02:15 11/11/24 08:43 1 MG Patient Own Medication 30 units BID SC 11/10/24 13:00 11/10/24 20:53 30 UNITS Aspirin 81 mg DAILY PO 11/11/24 10:00 Hold Montelukast Sodium 10 mg DAILY PO 11/11/24 10:00 11/11/24 11:14 10 MG Oxybutynin Chloride 5 mg BID PO 11/10/24 22:00 11/11/24 11:14 5 MG Buspirone HCl 30 mg BID PO 11/10/24 22:00 11/11/24 11:14 30 MG Patient Own Medication 1 tab TID PRN PO 11/10/24 17:45 Hold Megestrol Acetate 10 mg DAILY PO 11/11/24 10:00 11/11/24 11:42 10 MG Diagnostic Test (Pha) 1 strip Q90MIN 11/10/24 18:00 11/11/24 10:30 1 STRIP Dextrose 50 ml PRN PRN IV 11/10/24 17:45 Pregabalin 150 mg TID PO 11/10/24 22:00 11/11/24 06:45 150 MG Pregabalin 50 mg TID PO 11/10/24 22:00 11/11/24 06:45 50 MG Insulin Human (Reg)/Sodium Chloride 100 ml @ 2 mls/hr Q24H IV 11/11/24 05:15 11/11/24 08:37 2 MLS/HR Laboratory Results Laboratory Tests 11/11/24 07:04 Chemistry Test 11/10/24 16:35 11/11/24 07:04 Calcium Level 10.0 mg/dL (8.7-10.4) 9.8 mg/dL (8.7-10.4) Urinalysis Test 11/09/24 10:30 Urine Color Light-yellow (Yellow) Urine Clarity Cloudy (Clear) H Urine pH 5.5 (5.0-9.0) Urine Specific [place] 1.013 (1.001-1.035) Urine Protein 1+ (Negative) H Urine Ketones Negative (Negative) Urine Blood 1+ /uL (Negative) H Urine Nitrite Negative (Negative) Urine Bilirubin Negative (Negative) Urine Urobilinogen Normal mg/dL (Negative) Urine Leukocyte Esterase 3+ /uL (Negative) Urine RBC 3 /hpf (0 - 4) Urine WBC Clumps Present /hpf (None Seen) Urine Microscopic WBC 598 /HPF (0-5) H Urine Squamous Epithelial Cells Few /hpf (<5) Urine Bacteria Few /hpf (None Seen) H Urine Glucose 3+ mg/dL (Normal) H Assessment/Plan Assessment/Plan Impression: -acute on chronic hypoxic respiratory failure -UTI -morbid obesity -type 1 diabetes mellitus, severely uncontrolled with sugars remaining greater than 500 -COPD with probable exacerbation -seizure disorder -anxiety disorder Plan: - honey admission -patient was blood sugars has been severely uncontrolled since being in the hospital. Apparently, the patient has multiple allergies to long-acting insulin and is only able to take Levemir. Patient also has her insulin pump currently connected, with the patient unknown with the dose is. Instructed patient was stopped insulin pump. -continue q.4 coverage - c/w insulin drip -continue current antibiotic therapy -gentle IV hydration -bronchodilators -repeat labs in a.m. steroids 45 minutes critical care time Plan discussed with: Patient Date of Service: Nov 11, 2024 Billing Provider: SONYA REYNA MD Common Visit Codes: [id number] CARE 30-74 MIN SONYA REYNA MD Nov 11, 2024 13:00
[2024-11-11] MEDS: methylPREDNISolone SOD SUCC 40 MG/ML VL IV SCH (22:48)
[2024-11-12] VITALS (43 sets, daily range): BP systolic 103–160; BP diastolic 46–84; PULSE 10–113; RESP 13–31; TEMP 98.4–99.4; O2SAT 88–99
[2024-11-12 06:26] LABS: Basophils # (auto) 0.1 10 ^3/uL (0-0.2); Basophils % (auto) 0.5 % (0.0-2.0); Eosinophils # (auto) 0.2 10 ^3/uL (0-0.8); Eosinophils % (auto) 1.3 % (0.0-7.0); Hematocrit 44.1 % (36.0-46.0); Hemoglobin 13.8 g/dL (12.2-16.2); Lymphocytes # (auto) 2.7 10 ^3/uL (0.4-5.4); Lymphocytes % (auto) 23.4 % (10.0-50.0); Mean Corpuscular Hemoglobin 26.2 pg (28.0-32.0); Mean Corpuscular Hgb Conc. 31.4 g/dL (32.0-36.0); Mean Corpuscular Volume 83.6 fL (80.0-100.0); Monocytes # (auto) 1.8 10 ^3/uL (0-1.3); Monocytes % (auto) 15.4 % (0.0-12.0); Neutrophils # (auto) 6.9 10 ^3/uL (1.6-8.6); Neutrophils % (auto) 59.4 % (37.0-80.0); Nucleated Red Blood Cells % 0.1 %; Platelet Count (auto) 176 10^3/uL (140-450); Red Blood Cells 5.27 10^6/uL (4.0-5.20); Red Cell Distribution Width 18.5 % (11.8-14.3); White Blood Cell 11.7 10^3/uL (4.4-10.8)
[2024-11-12 06:40] LABS: Anion Gap 7 (5-15); Sodium 139 mmol/L (136-145)
[2024-11-12 06:41] LABS: Calcium 9.9 mg/dL (8.7-10.4)
[2024-11-12 06:43] LABS: Carbon Dioxide 35 mmol/L (20-31); Chloride 97 mmol/L (98-107); Potassium 3.4 mmol/L (3.5-5.1)
[2024-11-12 06:46] LABS: BUN/Creatinine Ratio 30.6 (10.0-20.0)
[2024-11-12 06:54] LABS: Blood Urea Nitrogen 37 mg/dL (9-23); Glucose 171 mg/dL (74-106)
[2024-11-12] MEDS: POTASSIUM EFFERVESENT TAB 25 MEQ PO ONE (09:52)
--- NOTE | 2024-11-12 13:31 | DVHPN2 ---
Subjective breathing improved after prednisone, on 2LNC Reviewed: Care Plan, H&P, Labs, Medications Changes from previous H/P or p: No Changes General: Per HPI Eyes: No Pain, No Vision change, No Conjunctivae inflammation, No Eyelid inflammation, No Other, No Redness ENT: No Ear pain, No Ear discharge, No Nose pain, No Nose discharge, No Nose congestion, No Mouth pain, No Mouth swelling, No Throat pain, No Throat swelling, No Other Cardiovascular: No Chest Pain, No Palpitations, No Orthopnea, No Paroxysmal Noc. Dyspnea, No Edema, No Lt Headedness, No Other Respiratory: No Cough, No Dry; Shortness of breath; No SOB with excertion, No Wheezing, No Hemoptysis, No Pleuritic Pain, No Sputum, No Other Gastrointestinal: No Nausea, No Vomiting, No Abdominal Pain, No Diarrhea, No Constipation, No Melena, No Hematochezia, No Other Genitourinary: No Dysuria, No Frequency, No Incontinence, No Hematuria, No Retention; Other (Oliguria) Musculoskeletal: No other, No neck pain, No shoulder pain, No arm pain, No back pain, No hand pain, No leg pain, No foot pain Skin: No Rash, No Lesions, No Jaundice, No Bruising, No Other Objective Vitals Vital Signs Date Time Temp Pulse Resp B/P (MAP) Pulse Ox O2 Delivery O2 Flow Rate FiO2 11/12/24 13:00 93 28 131/71 (91) 94 11/12/24 10:20 Nasal Cannula 2.0 11/12/24 10:20 28 11/12/24 03:15 98.5 98.5 Intake/Output Intake and Output 11/12/24 07:00 Intake Total 50 ml Balance 50 ml Intake IV Total 50 ml General Appearance: Alert, Oriented X3, Cooperative, No acute distress HEENT: Atraumatic, PERRLA Lungs: Clear to auscultation, Normal air movement Cardiovascular: Normal S1, Normal S2 Abdomen: Normal bowel sounds, Soft, No tenderness, No hepatospenomegaly, No masses Genitourinary: No Apparent Abnormalities Back: Flank Tenderness, Midline Tenderness Neuro: Normal gait, Normal speech Psych/Mental Status: Mental status NL, Mood NL Medications Current Medications Medications Dose Ordered Sig/Prashanth Route Start Time Stop Time Status Last Admin Dose Admin Ondansetron HCl 4 mg Q4HP PRN IV 2/6/25 08:15 Enoxaparin Sodium 40 mg DAILY SC 11/09/24 10:00 11/10/24 08:30 40 MG Acetaminophen 650 mg Q6HP PRN PO 11/09/24 08:15 11/09/24 20:53 650 MG Albuterol 2.5 mg Q4HWA NEB 11/09/24 10:00 11/12/24 10:20 2.5 MG Albuterol 2.5 mg Q2HPRN PRN NEB 11/09/24 08:15 Ipratropium [place] 0.5 mg Q4HWA NEB 11/09/24 10:00 11/12/24 10:20 0.5 MG Ipratropium [place] 0.5 mg Q2HPRN PRN NEB 11/09/24 08:15 Ceftriaxone Sodium 50 ml @ 100 mls/hr DAILY@09 IV 11/10/24 09:00 Cancel Ceftriaxone Sodium 50 ml @ 50 mls/hr DAILY IV 11/10/24 10:00 11/12/24 10:12 50 MLS/HR Acetaminophen/ Hydrocodone Bitart 1 tab Q6HP PRN PO 11/10/24 02:15 11/12/24 06:30 1 TAB Hydromorphone HCl 1 mg Q4HPRN PRN IV 11/10/24 02:15 11/12/24 10:05 1 MG Patient Own Medication 30 units BID SC 11/10/24 13:00 11/12/24 10:00 30 UNITS Aspirin 81 mg DAILY PO 11/11/24 10:00 Hold Montelukast Sodium 10 mg DAILY PO 11/11/24 10:00 11/12/24 10:16 10 MG Oxybutynin Chloride 5 mg BID PO 11/10/24 22:00 11/12/24 10:16 5 MG Buspirone HCl 30 mg BID PO 11/10/24 22:00 11/12/24 09:51 30 MG Patient Own Medication 1 tab TID PRN PO 11/10/24 17:45 Hold Megestrol Acetate 10 mg DAILY PO 11/11/24 10:00 11/12/24 11:40 10 MG Diagnostic Test (Pha) 1 strip Q90MIN 11/10/24 18:00 11/12/24 12:00 1 STRIP Dextrose 50 ml PRN PRN IV 11/10/24 17:45 Pregabalin 150 mg TID PO 11/10/24 22:00 11/12/24 06:29 150 MG Pregabalin 50 mg TID PO 11/10/24 22:00 11/12/24 06:29 50 MG Insulin Human (Reg)/Sodium Chloride 100 ml @ 2 mls/hr Q24H IV 11/11/24 05:15 11/12/24 13:11 20 MLS/HR Methylprednisolone Sodium Succinate 40 mg BID IV 11/11/24 22:00 Baclofen 20 mg Q8HR PO 11/12/24 14:00 Laboratory Results Laboratory Tests 11/12/24 05:59 Chemistry Test 11/12/24 05:59 Calcium Level 9.9 mg/dL (8.7-10.4) Urinalysis Test 11/09/24 10:30 Urine Color Light-yellow (Yellow) Urine Clarity Cloudy (Clear) H Urine pH 5.5 (5.0-9.0) Urine Specific [place] 1.013 (1.001-1.035) Urine Protein 1+ (Negative) H Urine Ketones Negative (Negative) Urine Blood 1+ /uL (Negative) H Urine Nitrite Negative (Negative) Urine Bilirubin Negative (Negative) Urine Urobilinogen Normal mg/dL (Negative) Urine Leukocyte Esterase 3+ /uL (Negative) Urine RBC 3 /hpf (0 - 4) Urine WBC Clumps Present /hpf (None Seen) Urine Microscopic WBC 598 /HPF (0-5) H Urine Squamous Epithelial Cells Few /hpf (<5) Urine Bacteria Few /hpf (None Seen) H Urine Glucose 3+ mg/dL (Normal) H Microbiology Microbiology Date/Time Source Procedure Growth Status 11/10/24 19:20 Voided Urine Urine Culture - Preliminary Resulted Assessment/Plan Assessment/Plan Impression: -acute on chronic hypoxic respiratory failure -UTI -morbid obesity -type 1 diabetes mellitus, severely uncontrolled with sugars remaining greater than 500 -COPD with probable exacerbation -seizure disorder -anxiety disorder - vaginal katarina? Plan: - honey admission -patient was blood sugars has been severely uncontrolled since being in the hospital. Apparently, the patient has multiple allergies to long-acting insulin and is only able to take Levemir. Patient also has her insulin pump currently connected, with the patient unknown with the dose is. Instructed patient was stopped insulin pump. -continue q.4 coverage - c/w insulin drip -continue current antibiotic therapy -gentle IV hydration -bronchodilators -repeat labs in a.m. steroids fluconazole nystatin 37 minutes critical care time Plan discussed with: Patient My Orders Orders - SONYA REYNA MD Procedure Category Date Status Time Basic Metabolic Panel LAB 11/13/24 Verified 04:00 Complete Blood Count LAB 11/13/24 Verified 04:00 Baclofen Tablet PHA 11/12/24 In Process (Liorisal Tablet) 14:00 Date of Service: Nov 12, 2024 Billing Provider: SONYA REYNA MD Common Visit Codes: [id number] CARE-EACH +30MIN SONYA REYNA MD Nov 12, 2024 13:30
[2024-11-12] MEDS: BACLOFEN 10 MG TAB PO SCH (13:52)
[2024-11-12] MEDS: FLUCONAZOLE 100 MG TAB PO ONE (16:00)
[2024-11-12] MEDS: NYSTATIN (MOUTH-THROAT) 500,000 UNITS/5 ML SUSP MT SCH (18:11)
[2024-11-12] MEDS: HYDROmorphone HCL 2 MG/ML VL/or syr ONE (20:23)
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
[2024-11-13] VITALS (92 sets, daily range): BP systolic 114–171; BP diastolic 39–85; PULSE 74–118; RESP 10–39; TEMP 98.1–99.9; O2SAT 88–100
[2024-11-13] MEDS: HYDROmorphone HCL 2 MG/ML VL/or syr ONE ×2 (01:27→21:56)
[2024-11-13 05:49] LABS: Basophils # (auto) 0 10 ^3/uL (0-0.2); Eosinophils # (auto) 0 10 ^3/uL (0-0.8); Hematocrit 46.5 % (36.0-46.0); Hemoglobin 14.7 g/dL (12.2-16.2); Lymphocytes # (auto) 0.7 10 ^3/uL (0.4-5.4); Lymphocytes % (auto) 6.9 % (10.0-50.0); Mean Corpuscular Hemoglobin 26.6 pg (28.0-32.0); Mean Corpuscular Hgb Conc. 31.5 g/dL (32.0-36.0); Mean Corpuscular Volume 84.3 fL (80.0-100.0); Monocytes # (auto) 0.2 10 ^3/uL (0-1.3); Monocytes % (auto) 1.6 % (0.0-12.0); Neutrophils # (auto) 9.5 10 ^3/uL (1.6-8.6); Neutrophils % (auto) 91.5 % (37.0-80.0); Platelet Count (auto) 153 10^3/uL (140-450); Red Blood Cells 5.52 10^6/uL (4.0-5.20); Red Cell Distribution Width 18.3 % (11.8-14.3); White Blood Cell 10.4 10^3/uL (4.4-10.8)
[2024-11-13 06:09] LABS: Potassium 4.5 mmol/L (3.5-5.1); Sodium 139 mmol/L (136-145)
[2024-11-13 06:10] LABS: Anion Gap 9 (5-15)
[2024-11-13 06:15] LABS: BUN/Creatinine Ratio 26.9 (10.0-20.0)
[2024-11-13 06:23] LABS: Blood Urea Nitrogen 28 mg/dL (9-23); Calcium 10.4 mg/dL (8.7-10.4); Carbon Dioxide 33 mmol/L (20-31); Chloride 97 mmol/L (98-107); Glucose 245 mg/dL (74-106)
[2024-11-13] MEDS: BUDESONIDE (INHALATION) 0.5 MG/2 ML NEB NEB SCH (09:17)
[2024-11-13] MEDS: INSULIN DETEMIR SC SCH ×2 (10:28→22:00)
--- NOTE | 2024-11-13 10:39 | DVHPN2 ---
Subjective Patient continues to report having some shortness of breath Reviewed: Care Plan, H&P, Labs, Medications Changes from previous H/P or p: No Changes General: Per HPI Eyes: No Pain, No Vision change, No Conjunctivae inflammation, No Eyelid inflammation, No Other, No Redness ENT: No Ear pain, No Ear discharge, No Nose pain, No Nose discharge, No Nose congestion, No Mouth pain, No Mouth swelling, No Throat pain, No Throat swelling, No Other Cardiovascular: No Chest Pain, No Palpitations, No Orthopnea, No Paroxysmal Noc. Dyspnea, No Edema, No Lt Headedness, No Other Respiratory: Shortness of breath Gastrointestinal: No Nausea, No Vomiting, No Abdominal Pain, No Diarrhea, No Constipation, No Melena, No Hematochezia, No Other Genitourinary: Other Musculoskeletal: No other, No neck pain, No shoulder pain, No arm pain, No back pain, No hand pain, No leg pain, No foot pain Skin: No Rash, No Lesions, No Jaundice, No Bruising, No Other Objective Vitals Vital Signs Date Time Temp Pulse Resp B/P (MAP) Pulse Ox O2 Delivery O2 Flow Rate FiO2 11/13/24 10:00 29 91 Nasal Cannula* 2 28 11/13/24 10:00 103 11/13/24 09:33 146/79 11/13/24 08:00 99.5 99.5 Intake/Output Intake and Output 11/13/24 07:00 Intake Total 727.5 ml Balance 727.5 ml Intake Oral 340 ml IV Total 387.5 ml # Voids 3 General Appearance: Alert, Oriented X3, Cooperative, No acute distress HEENT: Atraumatic, PERRLA Lungs: Clear to auscultation, Normal air movement Cardiovascular: Normal S1, Normal S2 Abdomen: Normal bowel sounds, Soft, No tenderness, No hepatospenomegaly, No masses Genitourinary: No Apparent Abnormalities Back: Flank Tenderness, Midline Tenderness Neuro: Normal gait, Normal speech Skin: Dry, Intact Psych/Mental Status: Mental status NL, Mood NL Medications Current Medications Medications Dose Ordered Sig/Prashanth Route Start Time Stop Time Status Last Admin Dose Admin Ondansetron HCl 4 mg Q4HP PRN IV 11/09/24 08:15 Enoxaparin Sodium 40 mg DAILY SC 11/09/24 10:00 11/10/24 08:30 40 MG Acetaminophen 650 mg Q6HP PRN PO 11/09/24 08:15 11/09/24 20:53 650 MG Albuterol 2.5 mg Q4HWA NEB 11/09/24 10:00 11/13/24 09:17 2.5 MG Albuterol 2.5 mg Q2HPRN PRN NEB 11/09/24 08:15 Ipratropium [place] 0.5 mg Q4HWA NEB 11/09/24 10:00 11/13/24 09:17 0.5 MG Ipratropium [place] 0.5 mg Q2HPRN PRN NEB 11/09/24 08:15 Ceftriaxone Sodium 50 ml @ 100 mls/hr DAILY@09 IV 11/10/24 09:00 Cancel Ceftriaxone Sodium 50 ml @ 50 mls/hr DAILY IV 11/10/24 10:00 11/13/24 09:31 50 MLS/HR Acetaminophen/ Hydrocodone Bitart 1 tab Q6HP PRN PO 11/10/24 02:15 11/12/24 06:30 1 TAB Hydromorphone HCl 1 mg Q4HPRN PRN IV 11/10/24 02:15 11/13/24 08:51 1 MG Aspirin 81 mg DAILY PO 11/11/24 10:00 Hold Montelukast Sodium 10 mg DAILY PO 11/11/24 10:00 11/13/24 10:23 10 MG Oxybutynin Chloride 5 mg BID PO 11/10/24 22:00 11/13/24 10:22 5 MG Buspirone HCl 30 mg BID PO 11/10/24 22:00 11/13/24 10:22 30 MG Patient Own Medication 1 tab TID PRN PO 11/10/24 17:45 Hold Megestrol Acetate 10 mg DAILY PO 11/11/24 10:00 11/13/24 10:23 10 MG Diagnostic Test (Pha) 1 strip Q90MIN 11/10/24 18:00 11/13/24 10:28 1 STRIP Dextrose 50 ml PRN PRN IV 11/10/24 17:45 Pregabalin 150 mg TID PO 11/10/24 22:00 11/13/24 05:53 150 MG Pregabalin 50 mg TID PO 11/10/24 22:00 11/12/24 21:21 50 MG Insulin Human (Reg)/Sodium Chloride 100 ml @ 2 mls/hr Q24H IV 11/11/24 05:15 11/13/24 10:34 26 MLS/HR Baclofen 20 mg Q8HR PO 11/12/24 14:00 11/13/24 05:52 20 MG Nystatin 5 ml QID MT 11/12/24 18:00 11/13/24 05:58 5 ML Patient Own Medication 40 units BID SC 11/13/24 10:00 11/13/24 10:28 40 UNITS Budesonide 0.5 mg BID NEB 11/13/24 10:00 11/13/24 09:17 0.5 MG Laboratory Results Laboratory Tests 11/13/24 05:09 Chemistry Test 11/13/24 05:09 Calcium Level 10.4 mg/dL (8.7-10.4) Urinalysis Test 11/09/24 10:30 Urine Color Light-yellow (Yellow) Urine Clarity Cloudy (Clear) H Urine pH 5.5 (5.0-9.0) Urine Specific [place] 1.013 (1.001-1.035) Urine Protein 1+ (Negative) H Urine Ketones Negative (Negative) Urine Blood 1+ /uL (Negative) H Urine Nitrite Negative (Negative) Urine Bilirubin Negative (Negative) Urine Urobilinogen Normal mg/dL (Negative) Urine Leukocyte Esterase 3+ /uL (Negative) Urine RBC 3 /hpf (0 - 4) Urine WBC Clumps Present /hpf (None Seen) Urine Microscopic WBC 598 /HPF (0-5) H Urine Squamous Epithelial Cells Few /hpf (<5) Urine Bacteria Few /hpf (None Seen) H Urine Glucose 3+ mg/dL (Normal) H Microbiology Microbiology Date/Time Source Procedure Growth Status 11/10/24 19:20 Voided Urine Urine Culture - Final Complete Labs and/or images reviewed: Labs reviewed by me, Image(s) reviewed by me Assessment/Plan Assessment/Plan Impression: -acute on chronic hypoxic respiratory failure -UTI -morbid obesity -type 1 diabetes mellitus, severely uncontrolled with sugars remaining greater than 500 -COPD with probable exacerbation -seizure disorder -anxiety disorder Plan: -events: Patient assessed in step-down ICU. Continues to be on insulin drip with algorithm being increased. Long-acting insulin has not been increase. Levemir will be increased to 40 units b.i.d.. IV Solu-Medrol will be stopped. Pulmicort will be restarted. Patient appears to be in no respiratory distress. -continue q.4 coverage -Levemir 40 units b.i.d. -continue current antibiotic therapy -gentle IV hydration -bronchodilators -repeat labs in a.m. Total time spent with patient discussing and formulating plan of care: 35 minutes. This medical document was created using an electronic medical record system with [employer] dictation system. Although this document has been carefully reviewed, there may still be some phonetic and typographical errors. These areas are purely typographical due to imperfections of the software programs, and do not reflect any compromise in the patient's medical care. Plan discussed with: Patient, Other (RN) My Orders Orders - RANDA ZARATE NP Procedure Category Date Status Time (Nf) Levimir PHA 11/13/24 In Process 10:00 Budesonide PHA 11/13/24 In Process (Inhalation) 10:00 Chest Xray 1 View XY 11/13/24 Verified 10:32 Date of Service: Nov 13, 2024 Billing Provider: RANDA ZARATE NP Common Visit Codes: [id number] INP/OBS CARE(HIGH) RANDA ZARATE NP Nov 13, 2024 10:39
--- NOTE | 2024-11-13 11:35 | DVH ---
EXAM: XY CHEST XRAY 1 VIEW Indication: CHf Technique: Single frontal view of the chest was obtained Comparison: 11/10/2024 FINDINGS: Lines and Tubes: None Lungs: No focal consolidation. Mild pulmonary vascular congestion. Pleura: No effusion. No pneumothorax. Cardiomediastinal contours: Unremarkable Bones: No acute osseous abnormality. IMPRESSION: Mild pulmonary vascular congestion.
[2024-11-13] MEDS: InsuLIN REG 1unit/0.01ml Soln (100units/ml) IV ONE (17:22)
--- NOTE | 2024-11-13 21:45 | DVHPN2 ---
Progress Note - Dictate Date Seen: Nov 13, 2024 Medical Necessity Reason Pt with a Central, PICC or Fol: No Subjective Patient seen and examined at bedside. Remains on supplemental oxygen Overnight events reviewed. vital signs Vital Sign Date Time Temp Pulse Resp B/P (MAP) Pulse Ox O2 Delivery O2 Flow Rate FiO2 11/13/24 20:15 90 18 99 11/13/24 20:00 Bi-Pap+ 40 40 11/13/24 18:00 2 11/13/24 16:00 99.1 99.1 Total Intake and Output 11/12/24 11/12/24 11/13/24 15:00 23:00 07:00 Intake Total 159.5 ml 232 ml 336 ml Balance 159.5 ml 232 ml 336 ml medications Current Medications Medications Dose Ordered Sig/Prashanth Route Start Time Stop Time Status Last Admin Dose Admin Ondansetron HCl 4 mg Q4HP PRN IV 11/09/24 08:15 Enoxaparin Sodium 40 mg DAILY SC 11/09/24 10:00 11/10/24 08:30 40 MG Acetaminophen 650 mg Q6HP PRN PO 11/09/24 08:15 11/09/24 20:53 650 MG Albuterol 2.5 mg Q4HWA NEB 11/09/24 10:00 11/13/24 18:48 2.5 MG Albuterol 2.5 mg Q2HPRN PRN NEB 11/09/24 08:15 Ipratropium [place] 0.5 mg Q4HWA NEB 11/09/24 10:00 11/13/24 18:48 0.5 MG Ipratropium [place] 0.5 mg Q2HPRN PRN NEB 11/09/24 08:15 Ceftriaxone Sodium 50 ml @ 100 mls/hr DAILY@09 IV 11/10/24 09:00 Cancel Ceftriaxone Sodium 50 ml @ 50 mls/hr DAILY IV 11/10/24 10:00 11/13/24 09:31 50 MLS/HR Acetaminophen/ Hydrocodone Bitart 1 tab Q6HP PRN PO 11/10/24 02:15 11/13/24 12:24 1 TAB Hydromorphone HCl 1 mg Q4HPRN PRN IV 11/10/24 02:15 11/13/24 16:41 1 MG Aspirin 81 mg DAILY PO 11/11/24 10:00 Hold Montelukast Sodium 10 mg DAILY PO 11/11/24 10:00 11/13/24 10:23 10 MG Oxybutynin Chloride 5 mg BID PO 11/10/24 22:00 11/13/24 10:22 5 MG Buspirone HCl 30 mg BID PO 11/10/24 22:00 11/13/24 10:22 30 MG Patient Own Medication 1 tab TID PRN PO 11/10/24 17:45 Hold Megestrol Acetate 10 mg DAILY PO 11/11/24 10:00 11/13/24 10:23 10 MG Diagnostic Test (Pha) 1 strip Q90MIN 11/10/24 18:00 11/13/24 19:37 1 STRIP Dextrose 50 ml PRN PRN IV 11/10/24 17:45 Pregabalin 150 mg TID PO 11/10/24 22:00 11/13/24 14:17 150 MG Pregabalin 50 mg TID PO 11/10/24 22:00 11/13/24 14:23 50 MG Insulin Human (Reg)/Sodium Chloride 100 ml @ 2 mls/hr Q24H IV 11/11/24 05:15 11/13/24 18:26 20 MLS/HR Baclofen 20 mg Q8HR PO 11/12/24 14:00 11/13/24 14:17 20 MG Nystatin 5 ml QID MT 11/12/24 18:00 11/13/24 18:21 5 ML Budesonide 0.5 mg BID NEB 11/13/24 10:00 11/13/24 09:17 0.5 MG Patient Own Medication 60 units BID SC 11/13/24 22:00 objective Gen.: Patient lying in bed in no apparent distress. On supplemental oxygen. Head: Normocephalic, atraumatic. Eyes: EOMI/PERRLA. Ears: Normal hearing. Normal anatomy. Neck/trachea: Trachea midline, supple. Nose: Normal external anatomy. Mouth: Moist mucous membranes. Chest: Decreased air entry bilaterally. No wheezing or rhonchi. Cardiovascular: Positive S1, positive S2. Regular rate and rhythm. Abdomen: Positive bowel sounds in all 4 quadrants. Soft, non-tender, non- distended. : Deferred. Rectal: Deferred. Skin: Warm, dry. Intact. Extremities: 2+ radial pulses bilaterally. No lower extremity edema. Neuro: Awake, alert, oriented x3. No gross motor or sensory deficits. Cranial nerves II through XII intact. Gait not assessed. laboratory and microbiology Laboratory Tests 11/13/24 05:09 Test 11/13/24 05:09 Range/Units Serum Glucose 245 H 74-106 mg/dL Assessment/Plan Impression: Acute hypoxic respiratory failure Dependence on supplemental oxygen Dyspnea Hypertension Morbid obesity Marijuana use Hx of nicotine dependence Events: Remains on supplemental oxygen, 2 LPM NC Taper O2 as tolerated Chest x-ray reviewed, demonstrates mild pulmonary vascular congestion WBC within normal limits. Note, pt is eating outside food. Continue bronchodilators/Pulmicort Continue antibiotics Discontinue IV steroids Accu-Cheks, ISS. Labs and imaging reviewed. Rest of plan as noted below. Plan: Supplemental oxygen Titrate to keep O2 sats above 92%. ABG reviewed, compensated BiPAP at night for CARIDAD Head of bed elevation Aspiration precautions Continue bronchodilators. Continue antibiotics Discontinue IV steroids Pain control Avoid oversedation Monitor renal function. Monitor electrolytes. Supplement as necessary. Monitor ins and outs. Diet and lifestyle modifications for weight reduction Morbid obesity - complicates all care DVT prophylaxis. Prognosis: Guarded given patient's multiple co-morbidities. Rest of plan per hospitalist and other consultants. Thank you, FAIZA William, for allowing me to participate in this patient's care. Further recommendations will depend on the patient's clinical course. Please do not hesitate to contact me if you have any questions or concerns. This medical document was created using an electronic medical record system with [employer] dictation system. Although these documentations are being carefully reviewed, there may still be some phonetic and typographical changes. The errors are purely typographical, due to imperfection on the software program, and do not reflect any compromise in the patient's medical care. Plan discussed with: Patient, Other (JUSTINE Kelly) CAMILLA BRITTON MD Nov 13, 2024 21:45
[2024-11-14] VITALS (75 sets, daily range): BP systolic 105–165; BP diastolic 45–95; PULSE 74–102; RESP 10–26; TEMP 97.8–98.9; O2SAT 91–100
[2024-11-14 05:31] LABS: Basophils # (auto) 0 10 ^3/uL (0-0.2); Basophils % (auto) 0.3 % (0.0-2.0); Eosinophils # (auto) 0.1 10 ^3/uL (0-0.8); Eosinophils % (auto) 1.4 % (0.0-7.0); Hematocrit 42.6 % (36.0-46.0); Hemoglobin 13.5 g/dL (12.2-16.2); Lymphocytes # (auto) 2.7 10 ^3/uL (0.4-5.4); Lymphocytes % (auto) 25.9 % (10.0-50.0); Mean Corpuscular Hemoglobin 26.5 pg (28.0-32.0); Mean Corpuscular Hgb Conc. 31.8 g/dL (32.0-36.0); Mean Corpuscular Volume 83.3 fL (80.0-100.0); Monocytes # (auto) 1.2 10 ^3/uL (0-1.3); Monocytes % (auto) 11.1 % (0.0-12.0); Neutrophils # (auto) 6.4 10 ^3/uL (1.6-8.6); Neutrophils % (auto) 61.3 % (37.0-80.0); Platelet Count (auto) 148 10^3/uL (140-450); Red Blood Cells 5.12 10^6/uL (4.0-5.20); Red Cell Distribution Width 18.7 % (11.8-14.3); White Blood Cell 10.4 10^3/uL (4.4-10.8)
[2024-11-14 05:37] LABS: Chloride 101 mmol/L (98-107); Potassium 3.8 mmol/L (3.5-5.1); Sodium 141 mmol/L (136-145)
[2024-11-14 05:38] LABS: Anion Gap 6 (5-15)
[2024-11-14 05:43] LABS: BUN/Creatinine Ratio 28.6 (10.0-20.0)
[2024-11-14 05:53] LABS: Blood Urea Nitrogen 26 mg/dL (9-23); Carbon Dioxide 34 mmol/L (20-31); Glucose 185 mg/dL (74-106)
[2024-11-14] MEDS ORDERED: DEXTROSE (50%) 50ML SYRG IV PRN (08:45)
--- NOTE | 2024-11-14 09:19 | DVHPN2 ---
Subjective Patient reports that her breathing has improved. Reviewed: Care Plan, H&P, Labs, Medications Changes from previous H/P or p: Changes General: Per HPI Eyes: No Pain, No Vision change, No Conjunctivae inflammation, No Eyelid inflammation, No Other, No Redness ENT: No Ear pain, No Ear discharge, No Nose pain, No Nose discharge, No Nose congestion, No Mouth pain, No Mouth swelling, No Throat pain, No Throat swelling, No Other Cardiovascular: No Chest Pain, No Palpitations, No Orthopnea, No Paroxysmal Noc. Dyspnea, No Edema, No Lt Headedness, No Other Respiratory: Shortness of breath Gastrointestinal: No Nausea, No Vomiting, No Abdominal Pain, No Diarrhea, No Constipation, No Melena, No Hematochezia, No Other Genitourinary: Other Musculoskeletal: No other, No neck pain, No shoulder pain, No arm pain, No back pain, No hand pain, No leg pain, No foot pain Skin: No Rash, No Lesions, No Jaundice, No Bruising, No Other Objective Vitals Vital Signs Date Time Temp Pulse Resp B/P (MAP) Pulse Ox O2 Delivery O2 Flow Rate FiO2 11/14/24 08:24 87 93 117/20 11/14/24 08:15 94 Nasal Cannula* 3 32 11/14/24 04:00 98.4 98.4 Intake/Output Intake and Output 11/14/24 07:00 Intake Total 1648 ml Balance 1648 ml Intake Oral 1320 ml IV Total 328 ml # Voids 4 # Bowel Movements 1 General Appearance: Alert, Oriented X3, Cooperative, No acute distress HEENT: Atraumatic, PERRLA Lungs: Clear to auscultation, Normal air movement Cardiovascular: Normal S1, Normal S2 Abdomen: Normal bowel sounds, Soft, No tenderness, No hepatospenomegaly, No masses Genitourinary: No Apparent Abnormalities Back: Flank Tenderness, Midline Tenderness Neuro: Normal gait, Normal speech Skin: Dry, Intact Psych/Mental Status: Mental status NL, Mood NL Medications Current Medications Medications Dose Ordered Sig/Prashanth Route Start Time Stop Time Status Last Admin Dose Admin Ondansetron HCl 4 mg Q4HP PRN IV 11/09/24 08:15 Enoxaparin Sodium 40 mg DAILY SC 11/09/24 10:00 11/10/24 08:30 40 MG Acetaminophen 650 mg Q6HP PRN PO 11/09/24 08:15 11/09/24 20:53 650 MG Albuterol 2.5 mg Q4HWA NEB 11/09/24 10:00 11/14/24 06:07 2.5 MG Albuterol 2.5 mg Q2HPRN PRN NEB 11/09/24 08:15 Ipratropium [place] 0.5 mg Q4HWA NEB 11/09/24 10:00 11/14/24 06:07 0.5 MG Ipratropium [place] 0.5 mg Q2HPRN PRN NEB 11/09/24 08:15 Ceftriaxone Sodium 50 ml @ 100 mls/hr DAILY@09 IV 11/10/24 09:00 Cancel Ceftriaxone Sodium 50 ml @ 50 mls/hr DAILY IV 11/10/24 10:00 11/13/24 09:31 50 MLS/HR Acetaminophen/ Hydrocodone Bitart 1 tab Q6HP PRN PO 11/10/24 02:15 11/13/24 12:24 1 TAB Hydromorphone HCl 1 mg Q4HPRN PRN IV 11/10/24 02:15 11/14/24 08:24 1 MG Aspirin 81 mg DAILY PO 11/11/24 10:00 Hold Montelukast Sodium 10 mg DAILY PO 11/11/24 10:00 11/13/24 10:23 10 MG Oxybutynin Chloride 5 mg BID PO 11/10/24 22:00 11/13/24 22:00 5 MG Buspirone HCl 30 mg BID PO 11/10/24 22:00 11/13/24 22:00 30 MG Patient Own Medication 1 tab TID PRN PO 11/10/24 17:45 Hold Megestrol Acetate 10 mg DAILY PO 11/11/24 10:00 11/13/24 10:23 10 MG Dextrose 50 ml PRN PRN IV 11/10/24 17:45 Pregabalin 150 mg TID PO 11/10/24 22:00 11/14/24 06:11 150 MG Pregabalin 50 mg TID PO 11/10/24 22:00 11/14/24 06:11 50 MG Baclofen 20 mg Q8HR PO 11/12/24 14:00 11/14/24 06:11 20 MG Nystatin 5 ml QID MT 11/12/24 18:00 11/14/24 06:11 5 ML Budesonide 0.5 mg BID NEB 11/13/24 10:00 11/13/24 22:50 0.5 MG Patient Own Medication 60 units BID SC 11/13/24 22:00 11/13/24 22:00 60 UNITS Diagnostic Test (Pha) 1 strip IQ4HR 11/14/24 12:00 UNV Insulin Human Regular IQ4HR SC 11/14/24 12:00 UNV Dextrose 50 ml UD PRN IV 11/14/24 08:45 UNV Laboratory Results Laboratory Tests 11/14/24 05:00 Chemistry Test 11/14/24 05:00 Calcium Level 10.0 mg/dL (8.7-10.4) Urinalysis Test 11/09/24 10:30 Urine Color Light-yellow (Yellow) Urine Clarity Cloudy (Clear) H Urine pH 5.5 (5.0-9.0) Urine Specific [place] 1.013 (1.001-1.035) Urine Protein 1+ (Negative) H Urine Ketones Negative (Negative) Urine Blood 1+ /uL (Negative) H Urine Nitrite Negative (Negative) Urine Bilirubin Negative (Negative) Urine Urobilinogen Normal mg/dL (Negative) Urine Leukocyte Esterase 3+ /uL (Negative) Urine RBC 3 /hpf (0 - 4) Urine WBC Clumps Present /hpf (None Seen) Urine Microscopic WBC 598 /HPF (0-5) H Urine Squamous Epithelial Cells Few /hpf (<5) Urine Bacteria Few /hpf (None Seen) H Urine Glucose 3+ mg/dL (Normal) H Microbiology Microbiology Date/Time Source Procedure Growth Status 11/10/24 19:20 Voided Urine Urine Culture - Final Complete Labs and/or images reviewed: Labs reviewed by me, Image(s) reviewed by me Assessment/Plan Assessment/Plan Impression: -acute on chronic hypoxic respiratory failure -UTI -morbid obesity -type 1 diabetes mellitus, severely uncontrolled with sugars remaining greater than 500 -COPD with probable exacerbation -seizure disorder -anxiety disorder Plan: -events: Patient was blood sugars now under 200. Continue Levemir at 6 units b.i.d.. Stop insulin drip and transitioned to regular insulin sliding scale, aggressive scale. Discussed with the patient and has been about not eating outside food. We will reassess patient later for possible discharged home if blood sugars remain controlled on sliding scale. -continue current antibiotic therapy -bronchodilators -repeat labs in a.m. Total time spent with patient discussing and formulating plan of care: 35 minutes. This medical document was created using an electronic medical record system with [employer] dictation system. Although this document has been carefully reviewed, there may still be some phonetic and typographical errors. These areas are purely typographical due to imperfections of the software programs, and do not reflect any compromise in the patient's medical care. Plan discussed with: Patient, Other (RN) My Orders Orders - RANDA ZARATE NP Procedure Category Date Status Time Chest Xray 1 View XY 11/13/24 Resulted 10:32 (Nf) Levimir PHA 11/13/24 In Process 22:00 Glucose Blood PHA 11/14/24 Logged (Accu-Chek Comfort 12:00 Insulin R (Human) PHA 11/14/24 Logged (Insulin R) 12:00 Dextrose 50% Syringe PHA 11/14/24 Logged 08:45 Date of Service: Nov 14, 2024 Billing Provider: RANDA ZARATE NP Common Visit Codes: [id number] INP/OBS CARE(HIGH) RANDA ZARATE NP Nov 14, 2024 09:19
[2024-11-14] MEDS: ACCU-CHEK COMFORT CURVE STRIP VI SCH (12:29)
[2024-11-14] MEDS: InsuLIN REG 1unit/0.01ml Soln (100units/ml) SC SCH (12:29)
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
--- NOTE | 2024-11-14 21:06 | DVHPN2 ---
Progress Note - Dictate Date Seen: Nov 14, 2024 Medical Necessity Reason Pt with a Central, PICC or Fol: No Subjective Patient seen and examined at bedside. Remains on supplemental oxygen Overnight events reviewed. vital signs Vital Sign Date Time Temp Pulse Resp B/P (MAP) Pulse Ox O2 Delivery O2 Flow Rate FiO2 11/14/24 16:45 82 22 94 11/14/24 16:20 98.9 11/14/24 16:00 Nasal Cannula* 2 28 Total Intake and Output 11/13/24 11/13/24 11/14/24 15:00 23:00 07:00 Intake Total 112 ml 884 ml 658 ml Balance 112 ml 884 ml 658 ml medications Current Medications Medications Dose Ordered Sig/Prashanth Route Start Time Stop Time Status Last Admin Dose Admin Ceftriaxone Sodium 50 ml @ 100 mls/hr DAILY@09 IV 11/10/24 09:00 Cancel objective Gen.: Patient lying in bed in no apparent distress. On supplemental oxygen. Head: Normocephalic, atraumatic. Eyes: EOMI/PERRLA. Ears: Normal hearing. Normal anatomy. Neck/trachea: Trachea midline, supple. Nose: Normal external anatomy. Mouth: Moist mucous membranes. Chest: Decreased air entry bilaterally. No wheezing or rhonchi. Cardiovascular: Positive S1, positive S2. Regular rate and rhythm. Abdomen: Positive bowel sounds in all 4 quadrants. Soft, non-tender, non- distended. : Deferred. Rectal: Deferred. Skin: Warm, dry. Intact. Extremities: 2+ radial pulses bilaterally. No lower extremity edema. Neuro: Awake, alert, oriented x3. No gross motor or sensory deficits. Cranial nerves II through XII intact. Gait not assessed. laboratory and microbiology Laboratory Tests 11/14/24 05:00 Test 11/14/24 05:00 Range/Units Serum Glucose 185 H 74-106 mg/dL Assessment/Plan Impression: Acute hypoxic respiratory failure Dependence on supplemental oxygen Dyspnea Hypertension Morbid obesity Marijuana use Hx of nicotine dependence Events: Remains on supplemental oxygen, 2.5 LPM NC Taper O2 as tolerated Chest x-ray on 11/13 demonstrated mild pulmonary vascular congestion WBC within normal limits. Continue bronchodilators/Pulmicort Continue antibiotics Discontinue steroids Accu-Cheks, ISS + long acting insulin. Off insulin drip Head of bed elevation Aspiration precautions Note, pt is eating outside food. Labs and imaging reviewed. Rest of plan as noted below. Plan: Supplemental oxygen Titrate to keep O2 sats above 92%. BiPAP at night for CARIDAD Head of bed elevation Aspiration precautions Continue bronchodilators. Continue antibiotics Discontinue steroids Pain control Avoid oversedation Monitor renal function. Monitor electrolytes. Supplement as necessary. Monitor ins and outs. Diet and lifestyle modifications for weight reduction Morbid obesity - complicates all care DVT prophylaxis. Prognosis: Guarded given patient's multiple co-morbidities. Rest of plan per hospitalist and other consultants. Thank you, FAIZA William, for allowing me to participate in this patient's care. Further recommendations will depend on the patient's clinical course. Please do not hesitate to contact me if you have any questions or concerns. This medical document was created using an electronic medical record system with [employer] dictation system. Although these documentations are being carefully reviewed, there may still be some phonetic and typographical changes. The errors are purely typographical, due to imperfection on the software program, and do not reflect any compromise in the patient's medical care. Plan discussed with: Patient, Other (JUSTINE Kelly) CAMILLA BRITTON MD Nov 14, 2024 21:06
== END 2024-11-14 18:00 | disposition home or self-care (01) | DRG 133 ==
LOC: ER 03:14 → OVERFLOW 08:07 → DOU IN ICU 11-12 15:11 → OVERFLOW 11-14 15:39 → ICU CENTRL 11-14 15:53
PROVIDERS: ATTEND Nurse Practitioner Acute Care
PROC: 5A09357 Assistance with Respiratory Ventilation, Less than 24 Consecutive Hours, Continuous Positive Airway Pressure (ICD-10-PCS; principal; 2024-11-10)
PROC: 5A09357 Assistance with Respiratory Ventilation, Less than 24 Consecutive Hours, Continuous Positive Airway Pressure (ICD-10-PCS; 2024-11-11)
PROC: 5A09357 Assistance with Respiratory Ventilation, Less than 24 Consecutive Hours, Continuous Positive Airway Pressure (ICD-10-PCS; 2024-11-12)
PROC: 5A09357 Assistance with Respiratory Ventilation, Less than 24 Consecutive Hours, Continuous Positive Airway Pressure (ICD-10-PCS; 2024-11-13)
DX: J96.21 Acute and chronic respiratory failure with hypoxia (principal); J44.1 Chronic obstructive pulmonary disease with (acute) exacerbation; Z99.81 Dependence on supplemental oxygen; E66.01 Morbid (severe) obesity due to excess calories; F41.9 Anxiety disorder, unspecified; E10.65 Type 1 diabetes mellitus with hyperglycemia; G40.909 Epilepsy, unspecified, not intractable, without status epilepticus; Z20.822 Contact with and (suspected) exposure to COVID-19; I10 Essential (primary) hypertension; N39.0 Urinary tract infection, site not specified; E78.5 Hyperlipidemia, unspecified; F12.90 Cannabis use, unspecified, uncomplicated; Z87.891 Personal history of nicotine dependence; Z99.3 Dependence on wheelchair; Z82.49 Family history of ischemic heart disease and other diseases of the circulatory system; Z82.3 Family history of stroke; Z83.3 Family history of diabetes mellitus; Z88.6 Allergy status to analgesic agent; Z88.5 Allergy status to narcotic agent; Z88.0 Allergy status to penicillin; Z82.0 Family history of epilepsy and other diseases of the nervous system; Z68.45 Body mass index [BMI] 70 or greater, adult; Z79.4 Long term (current) use of insulin; Z79.82 Long term (current) use of aspirin; Z79.899 Other long term (current) drug therapy
CPT/HCPCS: 36415; 36600; 71045; 80048; 80053; 81001; 82805; 82962; 83036; 83880; 84132; 84484; 85025; 87081; 87086; 87426; 87804; 94640; 94660; G0378; J1100; J1815; J2405

== ENCOUNTER → 2024-12-20 | Outpatient (CLI) | payer MEDICAID | END | disposition home or self-care (01) | LOC: RT 15:07 | PROVIDERS: ATTEND Internal Medicine Pulmonary Disease | DX: J45.909 Unspecified asthma, uncomplicated (principal); R06.00 Dyspnea, unspecified | CPT/HCPCS: 94060; 94727; 94729 ==